=== PATIENT | female | born 1945 | race Caucasian/White ===

== ENCOUNTER 2016-12-19 19:08 | Emergency (ER) | payer OTHER, BC ==
[~2016-12-19] VITALS: Ht 154.9 cm; Wt 80.0 kg
[~2016-12-19 19:08] MED LIST: ESOM40GR PO; LISI-729 PO; LISI2.5T5 PO; TRAM-10 PO
[2016-12-19] MEDS ORDERED: SODIUM CHLORIDE 0.9% 1000ML 1,000 ML IV STA (19:29)
[2016-12-19 19:33] VITALS: O2SAT 97
[2016-12-19] MEDS ORDERED: ONDANSETRON 8 MG/54 ML D5W IV STA (19:34)
[2016-12-19] MEDS ORDERED: ACETAMINOPHEN 500 MG TAB PO STA (19:37)
[2016-12-19 19:38] VITALS: Ht 154.9 cm; Wt 80.0 kg
[2016-12-19 19:45] LABS: BASO % 0.1 %; BASO ABS # 0.01 K/uL (0-0.2); COMPLETE YES; EOS % 0.6 %; HEMATOCRIT 40.1 % (37-47); IG% 0.1 %; LYMPH % 7.4 %; LYMPH ABS # 0.64 K/uL (1.2-3.4); MEAN CELL VOLUME 85.7 fL (80-100); MEAN CORPUSCULAR HEMOGLOBIN 29.5 pg (25-34); MEAN CORPUSCULAR HGB CONC 34.4 g/dl (32-36); MEAN PLATELET VOLUME 9.7 fL (7.4-10.4); MONO % 11.4 %; NEUT % 80.4 %; PLATELET COUNT 225 K/uL (130-400); RED BLOOD COUNT 4.68 M/uL (4.2-5.4); WHITE BLOOD COUNT 8.61 K/uL (4.8-10.8)
--- NOTE | 2016-12-19 19:54 | DIAGNOSTIC IMAGING REPORT ---
SINGLE VIEW CHEST CLINICAL HISTORY: Generalized weakness. FINDINGS: An AP, portable, upright chest radiograph is compared to study dated 01/16/2012. The examination is degraded by portable technique, large body habitus, and apical positioning. The cardiomediastinal silhouette is unremarkable. Chronic interstitial thickening is unchanged, as is elevation of the right hemidiaphragm. There is no airspace consolidation typical for pneumonia, large pleural effusion, or pneumothorax. The skeletal structures are osteopenic. Degenerative change is noted throughout the thoracic spine. IMPRESSION: No active disease in the chest. Electronically signed by: Felipe Christie M.D. 12/19/2016 7:52 PM Dictated Date/Time: 12/19/2016 7:52 PM
[2016-12-19 19:56] LABS: INR 1.1 (0.9-1.1)
[2016-12-19 20:01] LABS: ALT/SGPT 24 U/L (12-78); BLOOD UREA NITROGEN 18 mg/dl (7-18); BUN/CREATININE RATIO 20.7 (10-20); CALCIUM 9.2 mg/dl (8.5-10.1); CARBON DIOXIDE 28 mmol/L (21-32); CHLORIDE 102 mmol/L (98-107); CREATININE 0.88 mg/dl (0.60-1.20); GLUCOSE 97 mg/dl (70-99); MAGNESIUM 1.9 mg/dl (1.8-2.4); POTASSIUM 3.7 mmol/L (3.5-5.1); SODIUM 139 mmol/L (136-145)
[2016-12-19 20:11] LABS: ALKALINE PHOSPHATASE 59 U/L (45-117); AST/SGOT 16 U/L (15-37)
--- NOTE | 2016-12-19 20:13 | DIAGNOSTIC IMAGING REPORT ---
CT SCAN OF THE BRAIN WITHOUT IV CONTRAST CLINICAL HISTORY: Generalized weakness. COMPARISON STUDY: CT of the brain dated 03/05/2010. TECHNIQUE: Unenhanced axial CT scan of the brain is performed from the vertex to the skull base. CT DOSE: 720.95 mGycm FINDINGS: Brain parenchyma: There are age-related involutional changes noting minimal subcortical and periventricular microangiopathic change. There is no hemorrhage, mass effect, or evidence of acute territorial ischemia by CT criteria. Lay-white matter is preserved. No extra-axial fluid collection is seen. Ventricles, sulci, cisterns: Prominent secondary to involutional change. Intracranial vasculature: There is atherosclerotic calcification of the cavernous carotid arteries. Calvarium: Unremarkable. Sinuses and mastoids: Mild mucosal thickening is noted within the ethmoid sinuses. The remaining visualized paranasal sinuses are clear. The mastoid air cells are well pneumatized. Orbits: The bony orbits are grossly intact. IMPRESSION: There is no hemorrhage, mass effect, or evidence of acute territorial ischemia by CT criteria. Electronically signed by: Felipe Christie M.D. 12/19/2016 8:12 PM Dictated Date/Time: 12/19/2016 8:10 PM
[2016-12-19] MEDS ORDERED: LISI-725 PO (20:38)
[2016-12-19] MEDS ORDERED: AMLO-114 PO (20:46)
[2016-12-19] MEDS ORDERED: ATOR-24 PO (20:47)
[2016-12-19] MEDS ORDERED: IBUP-1050 PO (20:48)
[2016-12-19] MEDS ORDERED: MELO7.5T5 PO (20:48)
[2016-12-19] MEDS ORDERED: AMOX875T PO (20:50)
[2016-12-19] MEDS ORDERED: AREDS 2 PO (20:53)
[2016-12-19 20:55] VITALS: TEMP 37.3
[2016-12-19] MEDS ORDERED: NXM/40 PO (20:55)
[2016-12-19 21:44] LABS: URINE APPEARANCE CLEAR (CLEAR); URINE BILIRUBIN NEG (NEG); URINE COLOR YELLOW; URINE EPITHELIAL CELL AUTO 0-5 /lpf (0-5); URINE NITRITE NEG (NEG); URINE PH 7.5 (4.5-7.5); URINE SPECIFIC GRAVITY 1.007 (1.000-1.030); UROBILINOGEN NEG (NEG)
--- NOTE | 2016-12-19 21:47 | EMERGENCY ROOM VISIT NOTE ---
History Report prepared by Ileana: Jodi Herzog Under the Supervision of: Dr. Jonathon Garg M.D. First contact with patient: 19:29 Chief Complaint: NAUSEA Stated Complaint: NAUSEA, SINUS DRAINAGE,COUGH History of Present Illness The patient is a 71 year old female who presents to the Emergency Room with complaints of persistent weakness starting earlier today. She has had a sinus infection with clear rhinorrhea for little over a week. She went to urgent care this morning and was put on Augmentin. She reports that she has gotten worse since then. She has had nausea and vomiting. Her throat is sore from throwing up. After throwing up she felt very weak and was unable to get up. She is still nauseated and has a headache, cough, and general body aches. Pt denies LOC, fevers, chills, diaphoresis, visual changes, neck pain, chest pain, breathing difficulties, abdominal pain, back pain, melena, hematochezia, urinary symptoms , numbness, lymphadenopathy, rash, or other complaints. Source of History: patient Onset: earlier today Position: other (global) Quality: other (weakness) Timing: other (persistent) Associated Symptoms: + cough, + headache, + nausea, + sorethroat, + vomiting Note: Pt reports body aches. Review of Systems See HPI for pertinent positives and negatives. A total of ten systems were reviewed and were otherwise negative. Past Medical & Surgical Medical Problems: (1) Arthritis (2) Basal cell carcinoma of chest (3) Bronchitis (4) Heart disease (5) Hypertension Family History Diabetes mellitus Heart disease Hypertension Social History Smoking Status: Never Smoker Alcohol Use: none Marital Status: Housing Status: lives with family Occupation Status: retired Current/Historical Medications Scheduled Amlodipine (Norvasc), 20 MG PO DAILY Amoxicillin & Pot Clavulanate (Augmentin 875-125 mg), 1 TAB PO DAILY Atorvastatin (Lipitor), Unknown Dose PO QPM Esomeprazole Magnesium (Nexium), 40 MG PO QAM Ibuprofen (Advil), 200 MG PO DAILY Levofloxacin (Levaquin), 500 MG PO DAILY Lisinopril (Zestril), 20 MG PO DAILY Meloxicam (Mobic), 7.5 MG PO DAILY [Areds 2], 1 TAB PO DAILY Allergies Coded Allergies: Erythromycin (Verified Allergy, Mild, RASH, 12/19/16) Morphine (Verified Adverse Reaction, Mild, SEVERE NAUSEA AND VOMITING, ) Prednisone (Verified Adverse Reaction, Unknown, "STEROIDS" = "EXTREME HEADACHE AND HEART PALPITATIONS", 12/19/16) Physical Exam Vital Signs Date Time Temp Pulse Resp B/P Pulse Ox O2 Delivery O2 Flow Rate FiO2 12/19/16 22:10 82 16 135/72 94 Room Air 12/19/16 22:08 82 14 135/72 94 Room Air 93 122/88 97 140/86 12/19/16 20:55 37.3 86 18 132/78 95 Room Air 12/19/16 19:35 96 12/19/16 19:33 97 Room Air 12/19/16 19:17 37.8 105 20 145/84 93 Room Air Physical Exam GENERAL: Awake, alert, mildly ill appearing, no distress HEAD: Normocephalic, atraumatic. No edema. EYES: Normal conjunctiva. Sclera non-icteric. NOSE: Mild congestion. OROPHARYNX: Lips, tongue, and mucosa unremarkable. No erythema or exudate. NECK: Supple. No nuchal rigidity. FROM. No adenopathy. Negative jolt accentuation test. RESPIRATORY: CTA bilaterally. No wheezes rales or rhonchi. CARDIAC: Borderline tachycardic rate, normal rhythm. ABDOMEN: Soft, non distended. No tenderness to palpation. NEURO: Normal sensorium. SKIN: No rash or jaundice noted Medical Decision & Procedures ER Provider Diagnostic Interpretation: X ray results as stated below per my interpretation and radiologist interpretation. Other radiology results as stated below per my review and radiologist interpretation SINGLE VIEW CHEST CLINICAL HISTORY: Generalized weakness. FINDINGS: An AP, portable, upright chest radiograph is compared to study dated 01/16/2012. The examination is degraded by portable technique, large body habitus, and apical positioning. The cardiomediastinal silhouette is unremarkable. Chronic interstitial thickening is unchanged, as is elevation of the right hemidiaphragm. There is no airspace consolidation typical for pneumonia, large pleural effusion, or pneumothorax. The skeletal structures are osteopenic. Degenerative change is noted throughout the thoracic spine. IMPRESSION: No active disease in the chest. Electronically signed by: Felipe Christie M.D. 12/19/2016 7:52 PM Dictated Date/Time: 12/19/2016 7:[address] SCAN OF THE BRAIN WITHOUT IV CONTRAST CLINICAL HISTORY: Generalized weakness. COMPARISON STUDY: CT of the brain dated 03/05/2010. TECHNIQUE: Unenhanced axial CT scan of the brain is performed from the vertex to the skull base. CT DOSE: 720.95 mGycm FINDINGS: Brain parenchyma: There are age-related involutional changes noting minimal subcortical and periventricular microangiopathic change. There is no hemorrhage, mass effect, or evidence of acute territorial ischemia by CT criteria. Lay-white matter is preserved. No extra-axial fluid collection is seen. Ventricles, sulci, cisterns: Prominent secondary to involutional change. Intracranial vasculature: There is atherosclerotic calcification of the cavernous carotid arteries. Calvarium: Unremarkable. Sinuses and mastoids: Mild mucosal thickening is noted within the ethmoid sinuses. The remaining visualized paranasal sinuses are clear. The mastoid air cells are well pneumatized. Orbits: The bony orbits are grossly intact. IMPRESSION: There is no hemorrhage, mass effect, or evidence of acute territorial ischemia by CT criteria. Electronically signed by: Felipe Christie M.D. 12/19/2016 8:12 PM Dictated Date/Time: 12/19/2016 8:10 PM Laboratory Results 12/19/16 19:33 Red Blood Count 4.68, Mean Corpuscular Volume 85.7, Mean Corpuscular Hemoglobin 29.5, Mean Corpuscular Hemoglobin Concent 34.4, Mean Platelet Volume 9.7, Neutrophils (%) (Auto) 80.4, Lymphocytes (%) (Auto) 7.4, Monocytes (%) (Auto) 11.4, Eosinophils (%) (Auto) 0.6, Basophils (%) (Auto) 0.1, Neutrophils # (Auto ) 6.92, Lymphocytes # (Auto) 0.64, Monocytes # (Auto) 0.98, Eosinophils # (Auto ) 0.05, Basophils # (Auto) 0.01 12/19/16 19:33 Test 12/19/16 19:33 12/19/16 20:15 12/19/16 20:28 12/19/16 21:30 White Blood Count 8.61 K/uL (4.8-10.8) Red Blood Count 4.68 M/uL (4.2-5.4) Hemoglobin 13.8 g/dL (12.0-16.0) Hematocrit 40.1 % (37-47) Mean Corpuscular Volume 85.7 fL (80-100) Mean Corpuscular Hemoglobin 29.5 pg (25-34) Mean Corpuscular Hemoglobin Concent 34.4 g/dl (32-36) Platelet Count 225 K/uL (130-400) Mean Platelet Volume 9.7 fL (7.4-10.4) Neutrophils (%) (Auto) 80.4 % Lymphocytes (%) (Auto) 7.4 % Monocytes (%) (Auto) 11.4 % Eosinophils (%) (Auto) 0.6 % Basophils (%) (Auto) 0.1 % Neutrophils # (Auto) 6.92 K/uL (1.4-6.5) Lymphocytes # (Auto) 0.64 K/uL (1.2-3.4) Monocytes # (Auto) 0.98 K/uL (0.11-0.59) Eosinophils # (Auto) 0.05 K/uL (0-0.5) Basophils # (Auto) 0.01 K/uL (0-0.2) RDW Standard Deviation 43.6 fL (36.4-46.3) RDW Coefficient of Variation 13.9 % (11.5-14.5) Immature Granulocyte % (Auto) 0.1 % Immature Granulocyte # (Auto) 0.01 K/uL (0.00-0.02) Prothrombin Time 12.0 SECONDS (9.0-12.0) Prothromb Time International Ratio 1.1 (0.9-1.1) Activated Partial Thromboplast Time 26.9 SECONDS (21.0-31.0) Partial Thromboplastin Ratio 1.0 Anion Gap 9.0 mmol/L (3-11) Est Creatinine Clear Calc Drug Dose 57.0 ml/min Estimated GFR () 77.2 Estimated GFR (Non- 66.6 BUN/Creatinine Ratio 20.7 (10-20) Calcium Level 9.2 mg/dl (8.5-10.1) Magnesium Level 1.9 mg/dl (1.8-2.4) Total Bilirubin 0.3 mg/dl (0.2-1) Direct Bilirubin < 0.1 mg/dl (0-0.2) Aspartate Amino Transf (AST/SGOT) 16 U/L (15-37) Alanine Aminotransferase (ALT/SGPT) 24 U/L (12-78) Alkaline Phosphatase 59 U/L (45-117) Troponin I < 0.015 ng/ml (0-0.045) Total Protein 8.0 gm/dl (6.4-8.2) Albumin 3.8 gm/dl (3.4-5.0) Lipase 238 U/L (73-393) Thyroid Stimulating Hormone (TSH) 2.550 uIu/ml (0.300-4.500) Influenza Type A Antigen Neg for Influ A (NEG) Influenza Type B Antigen Neg for Influ B (NEG) Bedside Lactic Acid Venous 1.10 mmol/L (0.90-1.70) Urine Color YELLOW Urine Appearance CLEAR (CLEAR) Urine pH 7.5 (4.5-7.5) Urine Specific [place] 1.007 (1.000-1.030) Urine Protein NEG (NEG) Urine Glucose (UA) NEG (NEG) Urine Ketones NEG (NEG) Urine Occult Blood NEG (NEG) Urine Nitrite NEG (NEG) Urine Bilirubin NEG (NEG) Urine Urobilinogen NEG (NEG) Urine Leukocyte Esterase TRACE (NEG) Urine WBC (Auto) 0 /hpf (0-5) Urine RBC (Auto) 0-4 /hpf (0-4) Urine Hyaline Casts (Auto) 0 /lpf (0-5) Urine Epithelial Cells (Auto) 0-5 /lpf (0-5) Urine Bacteria (Auto) NEG (NEG) Laboratory results reviewed by me Medications Administered Medications (Trade) Dose Ordered Sig/Jayce Route Start Time Stop Time Status Last Admin Dose Admin Sodium Chloride (Nss 1000ml) 1,000 ml @ 999 mls/hr Q1H1M STAT IV 12/19/16 19:29 12/19/16 20:29 DC 12/19/16 19:29 999 MLS/HR Ondansetron HCl (Zofran 8mg Iv) 8 mg NOW STAT IV 12/19/16 19:34 12/19/16 19:35 DC 12/19/16 19:46 8 MG Acetaminophen (Tylenol Tab) 1,000 mg NOW STAT PO 12/19/16 19:37 12/19/16 19:38 DC 12/19/16 19:37 1,000 MG ECG Indication: weakness Rate (beats per minute): 98 Rhythm: normal sinus Findings: nonspecific-ST abn, no acute ischemic change, no ectopy ED Course 1928: NSS 1000 ml @ 999 mls/hr IV. 1932: The patient was evaluated in room B9. A complete history and physical exam was performed. 1933: Ondansetron HCl 8 mg IV. 1936: Acetaminophen 1000 mg PO. Medical Decision Triage Nursing notes reviewed. The patient's presentation and history were concerning for flulike symptoms. Etiologies such as viral syndrome, otitis, pharyngitis, pneumonia, urinary tract infection, sepsis, bacteremia, meningitis, as well as others were entertained. The patient was evaluated and she is mildly ill-appearing and uncomfortable. She had no significant headache or meningeal findings. She noted moderate nasal congestion. She noted that her symptoms worsened very shortly after taking the Augmentin. She notes having GI distress with erythromycin in the past that was similar. The patient underwent a workup. Her CBC, coags, cardiac markers were unremarkable. Chemistry panel did reveal some mild dehydration. The patient was hydrated. She was given Tylenol and she had a borderline fever. CT imaging didn't reveal mild sinus disease but no intracranial findings otherwise. The patient had a negative chest x-ray. Flu testing was performed as well as urinalysis and these were negative. I suspect the patient has a flulike illness but it has been present for about a week. She does have some sinusitis on imaging. Given her intolerance to erythromycin and Augmentin the patient would Be treated with Levaquin. I will place her on Levaquin for 5 days and have her follow-up closely with her outpatient physician. The patient was given the first dose in the emergency department. She will also be given a home pack of Zofran. She will not use this at the same time as the Levaquin. She does not have a prolonged QT and ECG. The patient had negative orthostatic testing. She was able to tolerate crackers and brandi david without difficulty the patient was offered treatment in the hospital as well as at home. She prefers to go home. If she worsens in anyway she agrees to come back. I gave my usual and customary discussion regarding this issue. By the evaluation outlined above other emergent etiologies such as those listed in the differential, as well as others, were deemed relatively unlikely. The patient and family were informed about the findings as listed above. All questions were answered and they were very pleased with the treatment. Return instructions were outlined and the patient was discharged in stable condition. The patient was referred to her PCP for follow-up tomorrow for a recheck of the current condition. The chart was completed utilizing [employer] Speech voice recognition software. Grammatical errors, random word insertions, pronoun errors, and incomplete sentences are an occasional consequence of this system due to software limitations, ambient noise, and hardware issues. Any formal questions or concerns about the content, text, or information contained within the body of this dictation should be directly addressed to the physician for clarification. Impression Primary Impression: Vomiting Additional Impressions: Near syncope Sinusitis Flu-like symptoms Scribe Attestation The scribe's documentation has been prepared under my direction and personally reviewed by me in its entirety. I confirm that the note above accurately reflects all work, treatment, procedures, and medical decision making performed by me. Departure Information Dispostion Home / Self-Care Prescriptions Levofloxacin (Levaquin) 500 Mg Tab 500 MG PO DAILY for 4 Days, #4 TAB Prov: Jonathon Garg MD 12/19/16 Referrals Brook Boucher DO (PCP) Patient Instructions [facility] Additional Instructions Levafloxacin(Levaquin) 500mg: Take one pill daily for 4 additional days for your infection. All antibiotics can cause diarrhea. If this occurs and you feel worse or it does not resolve in 1-2 days follow up with your doctor or return to the Emergency Department as this could be signs of serious underlying problems. Any medication can cause an allergic reaction, stop the pills immediately and return to the ER for rash, hives, breathing difficulties, or swelling. Acetaminophen(Tylenol) may be used for fever or pain. Use 1000mg every six hours as needed. Avoid using more than 4000mg in a 24 hour period. AND/OR Ibuprofen(Motrin, Advil) may be used for fever or pain. Use 600mg every six hours as needed. Take with food. Avoid using more than 2400mg in a 24 hour period. Do not use 2400mg per day for more than three consecutive days without physician direction. Prolonged inappropriate use can lead to stomach upset or ulcers. Controlling your fever with Tylenol and Ibuprofen as above will make you feel better. Rest and drink plenty of fluids. Avoid strenuous activity until your symptoms resolve and your breathing returns to normal. Return to the ER for chest pain, difficulty breathing, persistent fevers, vomiting, worsening of your condition, or as needed. Follow up with your primary physician in 1-2 days for a recheck of the current condition. Problem Qualifiers
[2016-12-19 21:49] LABS: MANUAL MICROSCOPIC REQUIRED? NO; REVIEW REQ? NO
[2016-12-19] MEDS ORDERED: LEVOFLOXACIN 250 MG TAB PO STA (22:50)
[2016-12-19] MEDS ORDERED: LEVO-366 PO (22:53)
[2016-12-19] MEDS ORDERED: ONDANSETRON HOME PACK 4MG OD TAB PO ONE (23:00)
[2016-12-19 23:15] VITALS: BP 130/79; PULSE 86; O2SAT 95
== END 2016-12-19 23:16 | disposition home or self-care (01) ==
LOC: C.EDB 19:09
DX: R11.10 Vomiting, unspecified (principal); R55 Syncope and collapse; J32.9 Chronic sinusitis, unspecified; R68.89 Other general symptoms and signs; M19.90 Unspecified osteoarthritis, unspecified site; Z85.828 Personal history of other malignant neoplasm of skin; I10 Essential (primary) hypertension; I51.9 Heart disease, unspecified; Z83.3 Family history of diabetes mellitus; Z82.49 Family history of ischemic heart disease and other diseases of the circulatory system; Z79.899 Other long term (current) drug therapy

== ENCOUNTER 2024-01-26 09:59 | Inpatient (IN) ==
[2024-01-26 11:07] LABS: Basophils # (auto) 0.02 K/uL (0.00-0.20); Basophils % (auto) 0.3 %; Hematocrit (blood only) 37.2 % (37.0-47.0); Hemoglobin 12.9 g/dl (12.0-16.0); Immature Granulocytes # (auto) 0.02 K/uL (0.01-0.20); Immature Granulocytes % (auto) 0.3 %; Lymphocytes % (auto) 19.8 %; Mean Corpuscular Hemoglobin 28.8 pg (25.0-34.0); Mean Corpuscular Hgb Conc 34.7 g/dL (32.0-36.0); Monocytes # (auto) 0.31 K/uL (0.11-0.59); Monocytes % (auto) 4.7 %; Neutrophils # (auto) 4.93 K/uL (1.40-6.50); Neutrophils % (auto) 74.9 %; Platelet Count 330 K/uL (130-400); RDW Coefficient of Variation 12.5 % (11.5-14.5); RDW Standard Deviation 38.2 fL (36.4-46.3); Red Blood Count 4.48 M/uL (4.20-5.40); White Blood Count 6.58 K/ul (4.8-10.8)
--- NOTE | 2024-01-26 11:11 | Emergency Department Note ---
Impression & Plan Back pain, Bulging lumbar disc, Spondylolisthesis at L3-L4 level, Acute hyponatremia ED Provider Note NAME: GEOVANI RENNER AGE: 78 SEX: F : 1945 ARRIVES VIA: Ambulance INFORMANT: Patient, ED PROVIDER(S): Arthur Cheng DO CHIEF COMPLAINT: Back pain HPI: The patient is a 78-year-old female who presented to the emergency department for an evaluation of back pain. The patient started having back pain over the course the last 2 to 3 days. The patient was seen in our facility yesterday with similar complaints. She was treated with pain medication. She had a CT obtained that did show some degree of degenerative disc disease and possible disc bulging. She was feeling better and she was able to be discharged to home. She returns today by ambulance because of worsening symptoms. She was treated by the prehospital personnel prior to arrival. She was treated with Toradol and Zofran droperidol Tylenol fentanyl and normal saline. The patient did have some improvement of her symptoms. She continued to have some nausea and vomiting. ROS: See above HPI for pertinent positives & negatives. A total of 10 systems reviewed and were otherwise negative. PAST MEDICAL HISTORY: See Below PAST SURGICAL HISTORY: See Below FAMILY HISTORY: See Below SOCIAL HISTORY: See Below HOME MEDICATIONS: See Below ALLERGIES: See Below VITALS: See Below PHYSICAL EXAMINATION: GENERAL: The patient is awake and alert. She is somewhat anxious appearing. EYES: The conjunctivae are clear. The pupils are round and reactive. EARS, NOSE, MOUTH AND THROAT: The nose is without any evidence of any deformity. NECK: The neck is nontender and supple. RESPIRATORY: Normal respiratory effort is noted there is no evidence of wheezing rhonchi or rales CARDIOVASCULAR: Regular rate and rhythm noted there no murmurs rubs or gallops normal S1 normal S2. GASTROINTESTINAL: The abdomen is soft. Abdomen is nontender. BACK: Midline lumbar tenderness was noted to palpation. There is no step-off. Range of motion appears intact but painful. MUSCULOSKELETAL/EXTREMITIES: There is no evidence of gross deformity full range of motion is noted in the hips and shoulders. SKIN: There is no obvious evidence of any rash. There are no petechiae, pallor or cyanosis noted. NEUROLOGIC: Patient is awake alert and oriented x3 strength is symmetric patellar reflexes are 2+ bilaterally MEDICAL DECISION MAKING: The patient is a 78-year-old female who presented to the emergency department by ambulance for an evaluation of pain. The patient was seen in our facility yesterday for similar complaints. She was treated for low back pain and ultimately was feeling much better. She was able to be discharged home at that time. She returns today with worsening and ongoing symptoms. I discussed the patient's laboratory and radiographic studies with her. I did review the patient's workup from yesterday. The patient started having some right-sided abdominal pain so CT of the abdomen and pelvis was obtained to ensure there is no intra-abdominal process causing her back pain today. The patient was treated with pain medication in the emergency department. I discussed her condition with the emergency department case hardener. Transfer to inpatient rehab was discussed but at this time the patient does not appear to be a very good inpatient rehab candidate. For this reason I [facility] have agreed to evaluate the patient in the emergency department for further management and disposition. Triage Nursing notes reviewed. Prior medical records reviewed Vital Signs: reviewed and remarkable for elevated blood pressure. Differential diagnosis: Musculoskeletal, disc herniation, fracture, metastatic disease, cord compression, discitis, sciatica, cauda equina, infection, aortic disease, renal colic, gastrointestinal, as well as other pathologies. ER treatment provided: See below Diagnostics interpreted by me: ECG: EKG was obtained in the emergency department. My interpretation is normal sinus rhythm at 68 bpm. There was no ectopy. Nonspecific T wave abnormalities were noted anteriorly. This was compared to a tracing from April 01, 2022. No changes were noted. Cardiac Monitoring: An order was placed for continuous cardiac monitoring. The monitor shows a rate of 68 bpm with sinus rhythm. Laboratory studies: As stated above and show below. Imaging studies: See below. Radiographic imaging was reviewed by myself Consultation(s): I discussed this case with Nahed who [facility] Past Med/Surg History Medical History GERD (gastroesophageal reflux disease) Hypertension Surgical History H/O neck surgery Social History Smoking Status: Never smoker Preferred Language: Yi Feels Safe at Home: Yes Allergies Allergies Allergy/AdvReac Type Severity Reaction Status Date / Time erythromycin base Allergy Intermediate RASH Verified 04/01/22 18:32 oxycodone [From Percocet] Allergy Intermediate INCREASES Verified 04/01/22 18:32 B/P, HIVES morphine AdvReac Severe SEVERE Verified 04/01/22 18:32 NAUSEA AND VOMITING prednisone AdvReac Severe "STEROIDS" Verified 04/01/22 18:32 = "EXTREME HEADACHE AND HEART PALPITATIONS" OPOIDS Allergy Intermediate INCREASES Uncoded 04/01/22 18:32 B/P, HIVES Home Meds Home Medications Medication Instructions Recorded Confirmed aspirin 81 mg tablet,delayed 81 mg PO QAM 04/01/22 01/26/24 release brimonidine 0.15 % eye drops 1 drp OPB BID 04/01/22 01/26/24 calcium citrate 315 mg 1 tab PO QAM 04/01/22 01/26/24 calcium-vitamin D3 6.25 mcg (250 unit) tablet (Citracal + Vitamin D Maximum) dorzolamide 22.3 mg-timolol 6.8 1 drp OPB BID 04/01/22 01/26/24 mg/mL eye drops esomeprazole magnesium 20 mg 20 mg PO QAM 04/01/22 01/26/24 capsule,delayed release (Nexium) krill oil 500 mg capsule 500 mg PO BID 04/01/22 01/26/24 lisinopril 20 mg tablet 20 mg PO QPM 04/01/22 01/26/24 magnesium chloride 71.5 mg 71.5 mg PO QPM 04/01/22 01/26/24 (magnesium chloride) tablet,delayed release (Slow-Mag) betamethasone dipropionate 0.05 % 1 applic topical BID 01/25/24 01/26/24 lotion meloxicam 15 mg tablet 15 mg PO QAM 01/25/24 01/26/24 Previous Rx's Medication Instructions Recorded lidocaine 5 % topical patch 1 patch topical DAILY PRN pain #15 01/25/24 ea Results & Data (ED) Vital Signs Vital Signs - 24 hr 01/26/24 09:50 01/26/24 10:12 01/26/24 10:20 Temperature 37.1 C Temperature Source Oral Pulse Rate 68 68 74 Pulse Rhythm Regular Pulse Strength Normal Respiratory Rate 18 14 Respiratory Effort / Characteristics Non-Labored Respiratory Depth Normal Respiratory Pattern Regular Blood Pressure 197/84 H Blood Pressure Mean 121 Blood Pressure Position Sitting Pulse Oximetry 96 95 Oxygen Delivery Method Room Air Room Air Sepsis Recent Fever Within 48 Hours No Sepsis New/Unexplained Change in Mental Status No Sepsis Action Taken by Nursing No Action Required 01/26/24 10:30 01/26/24 10:30 01/26/24 10:48 Temperature Temperature Source Pulse Rate 81 79 Pulse Rhythm Regular Pulse Strength Respiratory Rate 20 18 Respiratory Effort / Characteristics Respiratory Depth Respiratory Pattern Blood Pressure 182/90 H Blood Pressure Mean 133 Blood Pressure Position Pulse Oximetry 95 97 Oxygen Delivery Method Room Air Room Air Sepsis Recent Fever Within 48 Hours Sepsis New/Unexplained Change in Mental Status Sepsis Action Taken by Nursing 01/26/24 11:00 01/26/24 11:00 01/26/24 11:30 Temperature Temperature Source Pulse Rate 75 78 Pulse Rhythm Pulse Strength Respiratory Rate 19 18 Respiratory Effort / Characteristics Respiratory Depth Respiratory Pattern Blood Pressure 177/96 H Blood Pressure Mean 138 Blood Pressure Position Pulse Oximetry 96 97 Oxygen Delivery Method Room Air Room Air Sepsis Recent Fever Within 48 Hours Sepsis New/Unexplained Change in Mental Status Sepsis Action Taken by Nursing 01/26/24 11:30 01/26/24 12:01 01/26/24 12:02 Temperature Temperature Source Pulse Rate 74 67 Pulse Rhythm Pulse Strength Respiratory Rate 19 17 Respiratory Effort / Characteristics Respiratory Depth Respiratory Pattern Blood Pressure 186/106 H Blood Pressure Mean 149 Blood Pressure Position Pulse Oximetry 98 Oxygen Delivery Method Room Air Sepsis Recent Fever Within 48 Hours Sepsis New/Unexplained Change in Mental Status Sepsis Action Taken by Nursing 01/26/24 12:02 01/26/24 12:30 01/26/24 12:30 Temperature Temperature Source Pulse Rate 68 Pulse Rhythm Pulse Strength Respiratory Rate 17 Respiratory Effort / Characteristics Respiratory Depth Respiratory Pattern Blood Pressure 138/74 158/86 H Blood Pressure Mean 100 128 Blood Pressure Position Pulse Oximetry 99 Oxygen Delivery Method Room Air Sepsis Recent Fever Within 48 Hours Sepsis New/Unexplained Change in Mental Status Sepsis Action Taken by Retirement Medications Current Medication List: was personally reviewed by me Laboratory Data Attestation: I reviewed the patient's lab results. 01/26/24 10:05 01/26/24 10:05 Lab Results 01/26/24 Range/Units 10:05 WBC 6.58 (4.8-10.8) K/ul RBC 4.48 (4.20-5.40) M/uL Hgb 12.9 (12.0-16.0) g/dl Hct 37.2 (37.0-47.0) % MCV 83.0 (80.0-100.0) fL MCH 28.8 (25.0-34.0) pg MCHC 34.7 (32.0-36.0) g/dL RDW Std Deviation 38.2 (36.4-46.3) fL RDW Coeff of Angela 12.5 (11.5-14.5) % Plt Count 330 (130-400) K/uL MPV 10.0 (9.4-12.4) fL Immature Gran % (Auto) 0.3 % Neut % (Auto) 74.9 % Lymph % (Auto) 19.8 % [place] % (Auto) 4.7 % Eos % (Auto) 0.0 % Baso % (Auto) 0.3 % Neut # (Auto) 4.93 (1.40-6.50) K/uL Lymph # (Auto) 1.30 (1.20-3.40) K/uL [place] # (Auto) 0.31 (0.11-0.59) K/uL Eos # (Auto) 0.00 (0.00-0.50) K/uL Baso # (Auto) 0.02 (0.00-0.20) K/uL Immature Gran # (Auto) 0.02 (0.01-0.20) K/uL Sodium 126 L (136-145) mmol/L Potassium 3.8 (3.5-5.1) mmol/L Chloride 94 L (98-107) mmol/L Carbon Dioxide 23 (21-32) mmol/L Anion Gap 9 (3-11) BUN 9 (6-23) mg/dl Creatinine 0.67 (0.6-1.2) mg/dl Est Cr Clr Drug Dosing 60.7 ml/min Est GFR ( Amer) 98.3 ml/min Est GFR (Non-Af Amer) 84.8 ml/min BUN/Creatinine Ratio 13.4 (10-20) Glucose 131 H (70-99(Fasting)) mg/dl Calcium 9.2 (8.6-10.3) mg/dl Total Bilirubin 0.4 (0.2-1.0) mg/dl AST 18 (13-39) U/L ALT 14 (7-52) U/L Alkaline Phosphatase 51 (34-104) U/L Troponin I High Sens 8.3 (0-14) pg/ml Total Protein 7.5 (6.0-8.3) gm/dl Albumin 4.1 (3.4-5.0) gm/dl Globulin 3.4 (2.5-4.0) gm/dl Albumin/Globulin Ratio 1.2 (0.9-2) Lipase 15 (11-82) U/L Administered Medications Fentanyl Citrate (Fentanyl Citrate Pf 100 Mcg/2 Ml Vial) 50 mcg IV Q15M PRN PRN Reason: Pain Stop: 02/09/24 10:47 Last Admin: 01/26/24 11:26 Dose: 50 mcg Documented By: JACKI Discontinued Medications Sodium Chloride (Nss) 500 mls @ 999 mls/hr IV .Q31M STA Stop: 01/26/24 11:18 Last Infusion: 01/26/24 12:13 Dose: Infused Documented By: Admin: 01/26/24 11:26 Dose: 999 mls/hr Documented By: JACKI Ondansetron HCl (Ondansetron Inj 2 Mg/Ml 2 Ml Vial) 4 mg IV NOW STA Stop: 01/26/24 10:49 Last Admin: 01/26/24 11:26 Dose: 4 mg Documented By: JACKI Imaging Data Attestation: I personally reviewed and interpreted this imaging study as follows: My Impression: CT of the abdomen and pelvis was obtained in the emergency department. My interpretation is no free air or signs of bowel obstruction, final report below. Radiologist's Impression: Abdomen/Pelvis CT 01/26/24 11:[address] WITHOUT CONTRAST CT DOSE: 1085.9 mGy.cm HISTORY: Acute right flank pain right flank pain, seen yesterday had CT LS TECHNIQUE: Multiaxial CT images of the abdomen and pelvis were performed without contrast. A dose lowering technique was utilized adhering to the principles of ALARA. COMPARISON STUDY: CT lumbar spine 01/25/2024, CT abdomen and pelvis 04/01/2022 FINDINGS: Mild subsegmental bibasilar atelectasis. There is no pneumatosis or pneumoperitoneum. Coronary artery calcifications. The unenhanced spleen, pancreas, adrenal glands, gallbladder and liver appear unremarkable. No renal or ureteral calculi or hydronephrosis. Mild bilateral pelviectasis is likely physiologic. Unremarkable urinary bladder, uterus and adnexa. Atherosclerosis of the aorta without aneurysm. There is no lymphadenopathy identified. Small hiatal hernia. No bowel obstruction or bowel wall thickening. Colonic diverticulosis. Mild to moderate fecal retention. Appendectomy. No ascites or mesenteric inflammation. Unremarkable soft tissues. Degenerative changes of the spine, pelvis and hips. There is multilevel central canal and neural foraminal narrowing. There is severe intervertebral disc space narrowing at the T12-L1 interspace. Transitional lumbosacral anatomy. IMPRESSION: 1. No acute intra-abdominal or intrapelvic abnormality. 2. No urolith or obstructive uropathy. 3. Colonic diverticulosis. 4. Additional findings as above. ACT 112: Negative or not required by law. The above report was generated using voice recognition software. It may contain grammatical, syntax or spelling errors. Electronically signed by: Chaz Bello M.D. 01/26/2024 12:35 PM Discharge Plan Visit Data Stated Complaint: LOWER BACKK PAIN ED Provider: Arthur Cheng Discharge Problem: Back pain, Bulging lumbar disc, Spondylolisthesis at L3-L4 level, Acute hyponatremia Patient Disposition: Being Evaluated by Hospitalist Prescriptions Prescriptions: No Action lisinopril 20 mg tablet 20 mg PO QPM aspirin 81 mg Tablet,Delayed Release (Dr/Ec) 81 mg PO QAM dorzolamide-timolol 22.3-6.8 mg/mL drops 1 drp OPB BID brimonidine 0.15 % drops 1 drp OPB BID esomeprazole magnesium [Nexium] 20 mg Capsule,Delayed Release(Dr/Ec) 20 mg PO QAM calcium citrate-vitamin D3 [Citracal + D Maximum] 315 mg-6.25 mcg (250 unit) Tablet 1 tab PO QAM Slow-Mag 71.5 mg Tablet,Delayed Release (Dr/Ec) 71.5 mg PO QPM krill oil 500 mg Capsule 500 mg PO BID meloxicam 15 mg tablet 15 mg PO QAM betamethasone dipropionate 0.05 % lotion 1 applic TOPICAL BID lidocaine 5 % adhesive patch,medicated 1 patch TOP DAILY PRN (Reason: pain) Qty: 15 0RF Rx Instructions: leave on most painful area for 12 hrs Referrals Referrals: Brook Boucher, [Primary Care Provider] - Discharge Problem: Back pain Qualifiers: Back pain location: low back pain Chronicity: acute Back pain laterality: u nspecified Sciatica presence: unspecified whether sciatica present Qualified Code(s): M54.50 - Low back pain, unspecified
[2024-01-26 11:25] LABS: Albumin Globulin Ratio 1.2 (0.9-2); Albumin Level 4.1 gm/dl (3.4-5.0); BUN Creatinine Ratio 13.4 (10-20); Bilirubin,Total 0.4 mg/dl (0.2-1.0); Calcium 9.2 mg/dl (8.6-10.3); Creatinine Clr Calc Pharmacy 60.7 ml/min; Est GFR (African American) 98.3 ml/min; Est GFR (Non-African American) 84.8 ml/min; Globulin 3.4 gm/dl (2.5-4.0); Potassium 3.8 mmol/L (3.5-5.1); Total Protein 7.5 gm/dl (6.0-8.3)
[2024-01-26] MEDS: ONDANSETRON INJ 2 MG/ML 2 ML VIAL IV STA (11:26)
[2024-01-26] MEDS: SODIUM CHLORIDE 0.9% 500 ML IV STA (11:26)
[2024-01-26] MEDS: fentaNYL citrate PF 100 MCG/2 ML VIAL IV PRN (11:26)
[2024-01-26 11:31] LABS: Troponin I High Sensitivity 8.3 pg/ml (0-14)
--- NOTE | 2024-01-26 12:37 | CT Scan Report ---
ABDOMEN AND PELVIS CT WITHOUT CONTRAST CT DOSE: 1085.9 mGy.cm HISTORY: Acute right flank pain right flank pain, seen yesterday had CT LS TECHNIQUE: Multiaxial CT images of the abdomen and pelvis were performed without contrast. A dose lo wering technique was utilized adhering to the principles of ALARA. COMPARISON STUDY: CT lumbar spine 01/25/2024, CT abdomen and pelvis 04/01/2022 FINDINGS: Mild subsegmental bibasilar atelectasis. There is no pneumatosis or pneumoperitoneum. Coron soni artery calcifications. The unenhanced spleen, pancreas, adrenal glands, gallbladder and liver alena ear unremarkable. No renal or ureteral calculi or hydronephrosis. Mild bilateral pelviectasis is like ly physiologic. Unremarkable urinary bladder, uterus and adnexa. Atherosclerosis of the aorta without aneurysm. There is no lymphadenopathy identified. Small hiatal hernia. No bowel obstruction or bowel wall thickening. Colonic diverticulosis. Mild to m oderate fecal retention. Appendectomy. No ascites or mesenteric inflammation. Unremarkable soft tissu es. Degenerative changes of the spine, pelvis and hips. There is multilevel central canal and neural foraminal narrowing. There is severe intervertebral disc space narrowing at the T12-L1 interspace. Tr ansitional lumbosacral anatomy. IMPRESSION: 1. No acute intra-abdominal or intrapelvic abnormality. 2. No urolith or obstructive uropathy. 3. Colonic diverticulosis. 4. Additional findings as above. ACT 112: Negative or not required by law. The above report was generated using voice recognition software. It may contain grammatical, syntax o r spelling errors. Electronically signed by: Chaz Bello M.D. 01/26/2024 12:35 PM
--- NOTE | 2024-01-26 13:16 | Electrocardiogram Report ---
Test Reason : Blood Pressure : / mmHG Vent. Rate : 068 BPM Atrial Rate : 068 BPM P-R Int : 174 ms QRS Dur : 080 ms QT Int : 412 ms P-R-T Axes : 070 069 081 degrees QTc Int : 438 ms Normal sinus rhythm Normal ECG When compared with ECG of 01-APR-2022 18:11, No significant change was found Confirmed by Inderjit Bladeras ([id number]) on 01/26/2024 1:16:31 PM Referred By: Brook Boucher Confirmed By:Inderjit Balderas
--- NOTE | 2024-01-26 13:43 | History & Physical Report ---
Date of Service January 26, 2024 Assessment & Plan (1) Acute exacerbation of chronic low back pain: (2) Spondylolisthesis at L3-L4 level: (3) Bulging lumbar disc: (4) Lumbar radiculopathy: (5) Chronic hyponatremia: (6) Hypertension: (7) CHANEL on CPAP: (8) Hx of deep venous thrombosis: Plan This is a 78-year-old female who has a significant past medical history of HTN, GERD, CHANEL, solitary rectal ulcer syndrome, cervical disc disorder with myopathy, glaucoma, history of DVT/PE and obesity who presents to ED secondary to acute on chronic back pain. Acute on Chronic Back Pain --CT Lumbar spine reviewed from 01/24 showed Severe canal narrowing at L3-L4 due to disc bulge, spondylolisthesis and advanced facet hypertrophy noted. Also moderate to severe canal narrowing at L2-L3. 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 Boucher Pt was seen and examined in collaboration with Dr. Luis, please see addendum A total of 76 minutes was spent coordinating, documenting, and providing care for this patient excluding time spent in the performance of separately billed services. This included personally viewing all current laboratories and imaging studies, medication reconciliation, outpatient chart review, and discussion with specialists. History of Present Illness Chief Complaint: Acute on Chronic Back pain. Primary Care Provider: Brook Boucher, DO This is a 78-year-old female who has a significant past medical history of HTN, GERD, CHANEL, solitary rectal ulcer syndrome, cervical disc disorder with myopathy, glaucoma, history of DVT/PE and obesity who presents to ED secondary to acute on chronic back pain. Of significance patient was seen in ED yesterday. She underwent a CT of her lumbar spine which revealed no acute fractures, degenerative changes most pronounced at L3-L4 with L5 being demonstrated to be a transitional vertebrae. Severe canal narrowing at L3-L4 due to disc bulge, spondylolisthesis and advanced facet hypertrophy noted. Also moderate to severe canal narrowing at L2-L3. She denies any recent trauma. She has had back pain for several years. 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 Symptoms have worsened over the last 3 to 4 days. She does have pain going down the right leg into the thigh. She denies any numbness or tingling, saddle anesthesia or loss of bowel or bladder. She has been taking Tylenol and a lidocaine patch without relief. She does have prior history of neck surgery several years ago. She has no prior history of low back surgery or significant trauma. Patient's daughter, son and [id number] are at bedside also help elicit history. In ED yesterday she received IV Zofran, Toradol and fentanyl. Symptoms were mildly improved and therefore she was discharged. Unfortunately patient symptoms worsened today as well as having significant nausea and vomiting due to the pain. She has been unable to keep anything down over the last 24 to 48 hours and therefore re presented back to the ED today. Due to nausea and vomiting CT scan of abdomen pelvis was performed which was without significant abnormality. She received IV fentanyl and IV fluid in ED with minimal relief. Allergies Allergy/AdvReac Type Severity Reaction Status Date / Time erythromycin base Allergy Intermediate RASH Verified 04/01/22 18:32 Opioids - Morphine Analogues Allergy Intermediate increased Verified 01/26/24 13:29 BP, hives oxycodone [From Percocet] Allergy Intermediate INCREASES Verified 04/01/22 18:32 B/P, HIVES morphine AdvReac Severe SEVERE Verified 04/01/22 18:32 NAUSEA AND VOMITING prednisone AdvReac Severe "STEROIDS" Verified 04/01/22 18:32 = "EXTREME HEADACHE AND HEART PALPITATIONS" codeine [From Guiatuss AC] AdvReac Mild N/V Verified 01/26/24 13:22 guaifenesin AdvReac Mild N/V Verified 01/26/24 13:22 [From [facility]] tramadol AdvReac Mild nausea and Verified 01/26/24 13:22 vomit Home Medications Medication Instructions Recorded Confirmed Type aspirin 81 mg tablet,delayed 81 mg PO QAM 04/01/22 01/26/24 History release brimonidine 0.15 % eye drops 1 drp OPB BID 04/01/22 01/26/24 History calcium citrate 315 mg 1 tab PO QAM 04/01/22 01/26/24 History calcium-vitamin D3 6.25 mcg (250 unit) tablet (Citracal + Vitamin D Maximum) dorzolamide 22.3 mg-timolol 6.8 1 drp OPB BID 04/01/22 01/26/24 History mg/mL eye drops esomeprazole magnesium 20 mg 20 mg PO QAM 04/01/22 01/26/24 History capsule,delayed release (Nexium) krill oil 500 mg capsule 500 mg PO BID 04/01/22 01/26/24 History lisinopril 20 mg tablet 20 mg PO QPM 04/01/22 01/26/24 History magnesium chloride 71.5 mg 71.5 mg PO QPM 04/01/22 01/26/24 History (magnesium chloride) tablet,delayed release (Slow-Mag) betamethasone dipropionate 0.05 % 1 applic topical BID PRN Rash 01/25/24 01/26/24 History lotion lidocaine 5 % topical patch 1 patch topical DAILY PRN pain #15 01/25/24 01/26/24 Rx ea meloxicam 15 mg tablet 15 mg PO QAM 01/25/24 01/26/24 History Past Med/Surg History Medical History (Updated 01/26/24 @ 14:02 by Nahed Rehman PA-C) CHANEL on CPAP Hypertension GERD (gastroesophageal reflux disease) Surgical History (Updated 01/26/24 @ 13:55 by Nahed Rehman PA-C) Hx of unilateral oophorectomy R 2/2 cyst Hx of appendectomy Hx of colonoscopy Hx of esophagogastroduodenoscopy Hx of breast biopsy H/O neck surgery Family History Other Breast cancer Cancer Coronary heart disease Social History Smoking Status: Never smoker Hx Alcohol Use: No Hx Substance Use: No Preferred Language: Mosotho Feels Safe at Home: Yes Review of Systems Review of Systems: All systems reviewed & are unremarkable except as noted in HPI & below Physical Exam Physical Exam: please refer to Dr. Luis addendum for physical exam findings. Results & Data Results & Data Vital Signs (Past 12 Hours) Vital Signs Temp Pulse Resp BP Pulse Ox O2 Del Method 01/26/24 12:30 158/86 H 01/26/24 12:30 68 17 99 Room Air 01/26/24 12:02 138/74 01/26/24 12:02 67 17 98 Room Air 01/26/24 12:01 74 19 01/26/24 11:30 186/106 H 01/26/24 11:30 78 18 97 Room Air 01/26/24 11:00 75 19 96 Room Air 01/26/24 11:00 177/96 H 01/26/24 10:48 79 18 97 Room Air 01/26/24 10:30 81 20 95 Room Air 01/26/24 10:30 182/90 H 01/26/24 10:20 74 01/26/24 10:12 68 14 95 Room Air 01/26/24 09:50 37.1 C 68 18 197/84 H 96 Room Air Diagnostic Findings Abdomen/Pelvis CT 01/26/24 11:[address] WITHOUT CONTRAST CT DOSE: 1085.9 mGy.cm HISTORY: Acute right flank pain right flank pain, seen yesterday had CT LS TECHNIQUE: Multiaxial CT images of the abdomen and pelvis were performed without contrast. A dose lowering technique was utilized adhering to the principles of ALARA. COMPARISON STUDY: CT lumbar spine 01/25/2024, CT abdomen and pelvis 04/01/2022 FINDINGS: Mild subsegmental bibasilar atelectasis. There is no pneumatosis or pneumoperitoneum. Coronary artery calcifications. The unenhanced spleen, pancreas, adrenal glands, gallbladder and liver appear unremarkable. No renal or ureteral calculi or hydronephrosis. Mild bilateral pelviectasis is likely physiologic. Unremarkable urinary bladder, uterus and adnexa. Atherosclerosis of the aorta without aneurysm. There is no lymphadenopathy identified. Small hiatal hernia. No bowel obstruction or bowel wall thickening. Colonic diverticulosis. Mild to moderate fecal retention. Appendectomy. No ascites or mesenteric inflammation. Unremarkable soft tissues. Degenerative changes of the spine, pelvis and hips. There is multilevel central canal and neural foraminal narrowing. There is severe intervertebral disc space narrowing at the T12-L1 interspace. Transitional lumbosacral anatomy. IMPRESSION: 1. No acute intra-abdominal or intrapelvic abnormality. 2. No urolith or obstructive uropathy. 3. Colonic diverticulosis. 4. Additional findings as above. ACT 112: Negative or not required by law. The above report was generated using voice recognition software. It may contain grammatical, syntax or spelling errors. Electronically signed by: Chaz Bello M.D. 01/26/2024 12:[address] Lumbar Spine from 01/24: 1. No fractures within the lumbar spine. 2. Degenerative changes as described above most pronounced at the L3-L4 level. 3. L5 is demonstrated to be a transitional vertebra. 4. Additional findings as described above. Medications Administered Medication List Fentanyl Citrate (Fentanyl Citrate Pf 100 Mcg/2 Ml Vial) 50 mcg IV Q15M PRN PRN Reason: Pain Stop: 02/09/24 10:47 Last Admin: 01/26/24 11:26 Dose: 50 mcg Documented By: JACKI Discontinued Medications Sodium Chloride (Nss) 500 mls @ 999 mls/hr IV .Q31M STA Stop: 01/26/24 11:18 Last Infusion: 01/26/24 12:13 Dose: Infused Documented By: Admin: 01/26/24 11:26 Dose: 999 mls/hr Documented By: JACKI Acetaminophen (Ofirmev) 1,000 mg in 100 mls @ 400 mls/hr IV NOW STA Stop: 01/26/24 13:42 Last Admin: 01/26/24 13:44 Dose: 400 mls/hr Documented By: ZHOU Ondansetron HCl (Ondansetron Inj 2 Mg/Ml 2 Ml Vial) 4 mg IV NOW STA Stop: 01/26/24 10:49 Last Admin: 01/26/24 11:26 Dose: 4 mg Documented By: JACKI ECG Additional Comments: I have independently reviewed and interpreted patient's admitting EKG which revealed: Ventricular rate 60 bpm, normal sinus rhythm, no significant change from previous on April 01, 2022 COVID- Results Results Adm Lab Results: RBC 4.48 M/uL (4.20-5.40) 01/26/24 WBC 6.58 K/ul (4.8-10.8) 01/26/24 Hgb 12.9 g/dl (12.0-16.0) 01/26/24 Hct 37.2 % (37.0-47.0) 01/26/24 Plt Count 330 K/uL (130-400) 01/26/24 Neutrophils (%) (Auto) 74.9 % 01/26/24 Lymphocytes (%) (Auto) 19.8 % 01/26/24 Monocytes # (Auto) 0.31 K/uL (0.11-0.59) 01/26/24 Eosinophils # (Auto) 0.00 K/uL (0.00-0.50) 01/26/24 Immature Granulocyte % (Auto) 0.3 % 01/26/24 Neutrophils # (Auto) 4.93 K/uL (1.40-6.50) 01/26/24 Lymphocytes # (Auto) 1.30 K/uL (1.20-3.40) 01/26/24 Monocytes # (Auto) 0.31 K/uL (0.11-0.59) 01/26/24 Eosinophils # (Auto) 0.00 K/uL (0.00-0.50) 01/26/24 Basophils # (Auto) 0.02 K/uL (0.00-0.20) 01/26/24 Immature Granulocyte # (Auto) 0.02 K/uL (0.01-0.20) 4 Na 126 mmol/L (136-145) L 01/26/24 K 3.8 mmol/L (3.5-5.1) 01/26/24 Cl 94 mmol/L (98-107) L 01/26/24 CO2 23 mmol/L (21-32) 01/26/24 Anion Gap 9 (3-11) 01/26/24 BUN 9 mg/dl (6-23) 01/26/24 Creatinine 0.67 mg/dl (0.6-1.2) 01/26/24 BUN/Creatinine Ratio 13.4 (10-20) 01/26/24 Glucose Level 131 mg/dl (70-99(Fasting)) H 01/26/24 Ca 9.2 mg/dl (8.6-10.3) 01/26/24 Total Bilirubin 0.4 mg/dl (0.2-1.0) 01/26/24 AST/SGOT 18 U/L (13-39) 01/26/24 ALT/SGPT 14 U/L (7-52) 01/26/24 Alkaline Phosphatase 51 U/L (34-104) 01/26/24 Total Protein 7.5 gm/dl (6.0-8.3) 01/26/24 Albumin 4.1 gm/dl (3.4-5.0) 01/26/24 Globulin 3.4 gm/dl (2.5-4.0) 01/26/24 Albumin/Globulin Ratio 1.2 (0.9-2) 01/26/24 Code Status & VTE Plan Code Status FULL CODE VTE Prophylaxis Plan VTE Prophylaxis will be ordered: Yes Supervising Physician Co-Signing Physician Notes I have seen and discussed the case with the collaborating advanced practitioner. I agree with the above H&P. I have reviewed and confirmed the patients medical history, the findings on physical examination, and the patients diagnosis and treatment plan with Ori CUNNINGHAM and agree with the information documented. Ms. Moses is a 78-year-old female who has a significant past medical history of HTN, GERD, CHANEL, solitary rectal ulcer syndrome, cervical disc disorder with myopathy, glaucoma, history of DVT/PE and obesity who is admitted for acute on chronic back pain with radiculopathy. Patient radiates to anterior right thigh. Pain so severe with positional changes with resultant nausea/vomiting. No exacerbating process. Denies any urinary incontinence or stool incontinence, as well as any retention issues Declines steroids at this time. Reports back pain present, but fears and declines to roll as she fears the nausea GENERAL APPEARANCE: AxOx4,visibly uncomfortable, mild distress HEENT: NC, AT. MMM. EOMI, clear conjunctiva, oropharynx clear. NECK: Supple without lymphadenopathy. No stiffness or restricted ROM. HEART: Normal rate and regular rhythm, normal S1/S1, no m/r/g LUNGS: CTAB, moving air well. No crackles or wheezes are heard. ABDOMEN: Soft, nontender, nondistended with good bowel sounds heard. EXTREMITIES: Without cyanosis, clubbing or edema. NEUROLOGICAL: Grossly nonfocal. Alert and oriented, moving upper extremities however, declined raising of lower extremities 2/2 pain, sensation intact CN not formally tested but appear grossly intact. Skin: Warm and dry without any rash. #hyponatremia possibly multifactorial iso pain and N/V repeat bmp #nausea/Vomiting iso severe pain, pain control and antiemetics CLD in interim as tolerated #Severe disc space narrowing noted at T12-L1 with radiculopathy #lumbar DJD Pain regimen as above Declined medrol dose pack 2/2 reaction, Pain management consult Ortho spin consult PT/OT when able Rest of plan as above I spent a total of 35 minutes coordinating, documenting, and providing care for this patient excluding time spent in the performance of separately billed services. All of the aforementioned completed outside of collaborating with the assigned advanced practitioner for a full treatment plan. I have reviewed the advanced practitioner's documentation, and I agree with, and take responsibility for the plan of care
[2024-01-26] MEDS: ACETAMINOPHEN 1,000 MG/100 ML VIAL IV STA (13:44)
[2024-01-26] MEDS ORDERED: ALUMINUM/MAGNESIUM SUSP 30 ML UDC PO PRN (16:12)
[2024-01-26] MEDS ORDERED: MAGNESIUM HYDROXIDE SUSP 30 ML UDC PO PRN (16:12)
[2024-01-26] MEDS ORDERED: POLYETHYLENE (MIRALAX) 17 GM PACK PO PRN (16:12)
[2024-01-26] MEDS ORDERED: HYDROmorphone INJ 0.5 MG/0.5 ML SYR IV PRN (16:12)
[2024-01-26] MEDS ORDERED: ONDANSETRON INJ 2 MG/ML 2 ML VIAL IV PRN (16:12)
[2024-01-26] MEDS: PANTOprazole 40 MG in SYRINGE 0 ML IV SCH (18:39)
[2024-01-26] MEDS: SODIUM CHLORIDE 0.9% 1,000 ML IV SCH (18:40)
[2024-01-26 19:39] LABS: BUN Creatinine Ratio 12.5 (10-20); Calcium 8.7 mg/dl (8.6-10.3); Creatinine Clr Calc Pharmacy 56.5 ml/min; Est GFR (African American) 93.6 ml/min; Est GFR (Non-African American) 80.8 ml/min; Potassium 3.8 mmol/L (3.5-5.1)
[2024-01-26] MEDS: CYCLOBENZAPRINE HCL 5 MG TAB PO SCH (20:17)
[2024-01-26] MEDS: ACETAMINOPHEN 1,000 MG/100 ML VIAL IV SCH (20:25)
[2024-01-26] MEDS: DORZOLAMIDE/TIMOLOL 22.3/6.8MG/ML 10 ML BTL OPB SCH (20:26)
[2024-01-26] MEDS: lisinopril 20 MG TAB PO SCH (20:26)
[2024-01-26] MEDS: HEPARIN SOD 5,000 UNIT/0.5 ML VIAL SQ SCH (20:26)
[2024-01-26] MEDS: BRIMONIDINE TARTRATE-P 0.15% 5 ML BTL OPB SCH (20:26)
[2024-01-26] MEDS: LIDOCAINE 5% 1 PATCH TD SCH (20:27)
[2024-01-26 21:00] LABS: Appearance Urine Clear (Clear); Bilirubin Urine Negative (Negative); Blood Urine Negative (Negative); Color Urine Yellow; Glucose Urine UA Negative (Negative); Ketones Urine 1+ (Negative); Leukocyte Esterase Urine Negative (Negative); Nitrite Urine Negative (Negative); Protein Urine Negative (Negative); Specific Gravity Urine 1.016 (1.000-1.030); Urobilinogen Urine Negative (Negative); pH Urine 6.5 (4.5-7.5)
[2024-01-27] MEDS: KETOROLAC TROMETHAMINE 15 MG/ML VIAL IV PRN (02:51)
[2024-01-27 05:08] LABS: Basophils # (auto) 0.02 K/uL (0.00-0.20); Basophils % (auto) 0.4 %; Eosinophils # (auto) 0.02 K/uL (0.00-0.50); Eosinophils % (auto) 0.4 %; Hematocrit (blood only) 35.2 % (37.0-47.0); Hemoglobin 12.1 g/dl (12.0-16.0); Immature Granulocytes # (auto) 0.02 K/uL (0.01-0.20); Immature Granulocytes % (auto) 0.4 %; Lymphocytes # (auto) 1.59 K/uL (1.20-3.40); Lymphocytes % (auto) 28.5 %; Mean Corpuscular Hemoglobin 28.8 pg (25.0-34.0); Mean Corpuscular Hgb Conc 34.4 g/dL (32.0-36.0); Mean Corpuscular Volume 83.8 fL (80.0-100.0); Mean Platelet Volume 9.5 fL (9.4-12.4); Monocytes # (auto) 0.51 K/uL (0.11-0.59); Monocytes % (auto) 9.2 %; Neutrophils # (auto) 3.41 K/uL (1.40-6.50); Neutrophils % (auto) 61.1 %; Platelet Count 306 K/uL (130-400); RDW Coefficient of Variation 12.7 % (11.5-14.5); RDW Standard Deviation 38.5 fL (36.4-46.3); White Blood Count 5.57 K/ul (4.8-10.8)
[2024-01-27 05:15] LABS: Albumin Globulin Ratio 1.2 (0.9-2); Albumin Level 3.8 gm/dl (3.4-5.0); BUN Creatinine Ratio 13.4 (10-20); Bilirubin,Total 0.5 mg/dl (0.2-1.0); Calcium 8.9 mg/dl (8.6-10.3); Creatinine Clr Calc Pharmacy 60.7 ml/min; Est GFR (African American) 98.3 ml/min; Est GFR (Non-African American) 84.8 ml/min; Globulin 3.1 gm/dl (2.5-4.0); Magnesium 1.6 mg/dl (1.7-2.4); Potassium 3.7 mmol/L (3.5-5.1); Total Protein 6.9 gm/dl (6.0-8.3)
[2024-01-27 06:57] LABS: Estimated Average Glucose 117 mg/dl; Hemoglobin A1C 5.7 % (4.5-5.6)
--- NOTE | 2024-01-27 08:25 | Orthopedic Consultation ---
Date of Consultation January 27, 2024 Assessment & Plan (1) Spondylolisthesis at L3-L4 level: Assessment lumbar spinal stenosis with neurogenic claudication, spondylolisthesis L3-L4. CAT scan lumbar spine available for review performed 01/25/2024 does demonstrate anterolisthesis L3-L4 with evidence of severe facet hypertrophy on axillary views. I appreciate more marked osseous overgrowth into the lateral recess at L3-L4. This undoubtedly would encroach on the traversing nerve roots consistent with her pain patterns. Plan at this time would like to obtain an MRI lumbar spine urgently. I have physical therapy assess her limitation. Ultimately she may require injections or surgical intervention to address her neural compression. Patient understands agrees. History of Present Illness Reason for Consultation: Right leg pain Attending Physician: Katie Butler MD History of Present Illness This is a very pleasant 78-year-old female presents with a history of intermittent right leg radicular pain. Unfortunately the past several weeks has been quite limiting in nature and severe without resolution. She has not u ndergone any recent injections or physical therapy for this. She is markedly limited with any ability to stand and ambulate. In fact the pain is gone to the point that she is nauseated and has been vomiting. She denies any precipitating trauma fall or event. Overall she is a very active person prior to this decline in status. Left lower extremity is asymptomatic. The pain patterns involve the buttock groin and anterior right thigh not extending below the knee. She is most comfortable in breast. Allergies Allergy/AdvReac Type Severity Reaction Status Date / Time erythromycin base Allergy Intermediate RASH Verified 04/01/22 18:32 Opioids - Morphine Analogues Allergy Intermediate increased Verified 01/26/24 13:29 BP, hives oxycodone [From Percocet] Allergy Intermediate INCREASES Verified 04/01/22 18:32 B/P, HIVES morphine AdvReac Severe SEVERE Verified 04/01/22 18:32 NAUSEA AND VOMITING prednisone AdvReac Severe "STEROIDS" Verified 04/01/22 18:32 = "EXTREME HEADACHE AND HEART PALPITATIONS" codeine [From Guiatuss AC] AdvReac Mild N/V Verified 01/26/24 13:22 guaifenesin AdvReac Mild N/V Verified 01/26/24 13:22 [From Guiatuss AC] tramadol AdvReac Mild nausea and Verified 01/26/24 13:22 vomit Home Medications Medication Instructions Recorded Confirmed Type aspirin 81 mg tablet,delayed 81 mg PO QAM 04/01/22 01/26/24 History release brimonidine 0.15 % eye drops 1 drp OPB BID 04/01/22 01/26/24 History calcium citrate 315 mg 1 tab PO QAM 04/01/22 01/26/24 History calcium-vitamin D3 6.25 mcg (250 unit) tablet (Citracal + Vitamin D Maximum) dorzolamide 22.3 mg-timolol 6.8 1 drp OPB BID 04/01/22 01/26/24 History mg/mL eye drops esomeprazole magnesium 20 mg 20 mg PO QAM 04/01/22 01/26/24 History capsule,delayed release (Nexium) krill oil 500 mg capsule 500 mg PO BID 04/01/22 01/26/24 History lisinopril 20 mg tablet 20 mg PO QPM 04/01/22 01/26/24 History magnesium chloride 71.5 mg 71.5 mg PO QPM 04/01/22 01/26/24 History (magnesium chloride) tablet,delayed release (Slow-Mag) betamethasone dipropionate 0.05 % 1 applic topical BID PRN Rash 01/25/24 01/26/24 History lotion lidocaine 5 % topical patch 1 patch topical DAILY PRN pain #15 01/25/24 01/26/24 Rx ea meloxicam 15 mg tablet 15 mg PO QAM 01/25/24 01/26/24 History Patient History Medical History (Updated 01/26/24 @ 14:02 by Nahed Rehman PA-C) CHANEL on CPAP Hypertension GERD (gastroesophageal reflux disease) Surgical History (Updated 01/26/24 @ 13:55 by Nahed Rehman PA-C) Hx of unilateral oophorectomy R 2/2 cyst Hx of appendectomy Hx of colonoscopy Hx of esophagogastroduodenoscopy Hx of breast biopsy H/O neck surgery Family History Other Breast cancer Cancer Coronary heart disease Social History Smoking Status: Never smoker Hx Alcohol Use: No Hx Substance Use: No Preferred Language: Hebrew Tool Repairer Required: No Beliefs That Will Affect Care: None Current Living Situation: Alone Other Information That Helps Us Care for You: No Feels Safe at Home: Yes Assistive Devices: Glasses and Hearing Aid - Bilateral Physical Exam Physical Exam: On exam she is sitting in bed. Her daughter is at the bedside. She is cooperative and alert. She exhibits plus 5 out of 5 plantarflexion dorsiflexion quadriceps. Sensory appears to be intact to cold and light touch. She has no tension signs straight leg raising and negative logroll. Results & Data Vital Signs (Past 12 Hours) Vital Signs Temp Pulse Pulse Resp BP Pulse Ox O2 Del Method 01/27/24 08:05 63 01/27/24 07:52 36.9 C 96 H 16 93/63 L 96 Room Air 01/27/24 03:14 36.8 C 66 16 176/82 H 95 Room Air 01/27/24 01:07 63 01/26/24 22:12 36.8 C 63 16 174/76 H 91 Room Air
[2024-01-27] MEDS: ACETAMINOPHEN 325 MG TAB PO PRN (09:30)
[2024-01-27] MEDS: LORazepam 0.5 MG TAB PO STA (11:33)
--- NOTE | 2024-01-27 15:23 | Magnetic Resonance Report ---
MR lumbar spine wo con CLINICAL HISTORY: 78 years-old Female with right leg pain. Chronic low back pain with right lower ex tremity radicular symptoms. COMPARISON: CT 01/25/2024. TECHNIQUE: Multiplanar, multi sequence MRI of the lumbar spine was performed without intravenous cont rast. FINDINGS: Transitional lumbosacral anatomy redemonstrated. There is partial sacralization of the L5 segment. Th e L5-S1 intervertebral disc spaces described on axial image 28. The church business administrator localizer images demonstrat e no gross extra spinal abnormality. No acute fracture, subluxation or endplate erosion. Conus medull antonio terminates at L1-L2. Normal signal within the imaged thoracic spinal cord. There is minimal nons pecific increased T2 signal within the lumbar paravertebral musculature. Severe T12-L1 intervertebral disc space narrowing with likely degenerative related 3 mm retrolisthesis. Distended urinary bladder . Anteflexed uterus. T12-L1: Severe intervertebral disc space narrowing and circumferential disc osteophyte complex and g rade 1 retrolisthesis. Ligamentum flavum thickening with advanced facet arthrosis. Mild triangular ce ntral canal stenosis with AP dimension of the central canal measuring 9 mm. Severe bilateral foramina l stenosis. L1-L2: Mild intervertebral disc space narrowing with small circumferential disc osteophyte complex. Ligamentum flavum thickening with advanced facet arthrosis and trace facet effusions. There is a post erior annular fissure with right foraminal/far lateral disc protrusion measuring 1.4 cm transversely on image 7 series 7 with adjacent edema seen best on the sagittal STIR series. Moderate to severe rig ht foraminal stenosis. Mild central canal stenosis, AP dimension of the central canal measuring 9 mm. Mild to moderate left foraminal narrowing. Edema extends into the right neural foramen. L2-L3: Mild to moderate intervertebral disc space narrowing and spondylotic spurring with circumfere ntial annular disc bulge, ligamentum flavum thickening and advanced facet arthrosis with trace facet effusions. Severe central canal stenosis with AP dimension of the thecal sac measuring 5 mm. There is at least moderate narrowing of the lateral recesses. Mild to moderate right with moderate left sallie inal stenosis. L3-L4: Mild to moderate posterior intervertebral disc space narrowing and spondylotic spurring with circumferential annular disc bulge. Ligamentum flavum thickening with advanced facet arthrosis and sm all facet effusions. Severe central canal stenosis with AP dimension of the thecal sac measuring 3 mm . Severe narrowing of the lateral recesses. Mild to moderate right with moderate to severe left sallie inal stenosis L4-L5: Mild intervertebral disc space narrowing and spondylotic spurring with degenerative related t o 3 mm anterolisthesis. Advanced facet arthrosis. The central canal is patent. There is at least mild narrowing of the lateral recesses. Mild bilateral foraminal stenosis. L5-S1: Transitional lumbosacral anatomy as above. No central canal or neural foraminal stenosis. IMPRESSION: 1. At L1-L2, there is a posterior annular fissure with right foraminal/right far lateral disc protrus ion causing moderate to severe right foraminal stenosis with reactive edema extending into the right neural foramen. 2. Severe central canal stenosis at L2-L3 and L3-L4 with multilevel neural foraminal narrowing as abo ve. 3. Severe intervertebral disc space narrowing at T12-L1. 4. Transitional lumbosacral anatomy redemonstrated. ACT 112: Negative or not required by law. The above report was generated using voice recognition software. It may contain grammatical, syntax o r spelling errors. Dictated: 01/27/2024 1:05 PM Transcribed: 01/27/2024 1:30 PM Fanny [id number] Travis [id number] Electronically signed by: Chaz Bello M.D. 01/27/2024 3:21 PM
--- NOTE | 2024-01-27 16:37 | Hospitalist Progress Note ---
Date of Service January 27, 2024 Assessment & Plan (1) Acute exacerbation of chronic low back pain: (2) Spondylolisthesis at L3-L4 level: (3) Bulging lumbar disc: (4) Lumbar radiculopathy: (5) Chronic hyponatremia: (6) Hypertension: (7) CHANEL on CPAP: (8) Hx of deep venous thrombosis: Plan This is a 78-year-old female who has a significant past medical history of HTN, GERD, CHANEL, solitary rectal ulcer syndrome, cervical disc disorder with myopathy, glaucoma, history of DVT/PE and obesity who presents to ED secondary to acute on chronic back pain. Acute on Chronic Back Pain --CT Lumbar spine reviewed from 01/24 showed Severe canal narrowing at L3-L4 due to disc bulge, spondylolisthesis and advanced facet hypertrophy noted. Also moderate to severe canal narrowing at L2-L3. 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 Boucher Admission and Anticipated Discharge Date Admission Date: January 26, 2024 Subjective 01/27/2024 The patient was seen and examined in medical telemetry unit She has been complaining of severe pain in the lower back radiation to the right buttock and thigh up to the knee joint Denies any problem with urine or bowel habit No other symptoms at rest Review of Systems Review of Systems: All systems reviewed and are unremarkable except as noted below Physical Exam Physical Exam: Sitting on a chair with right legs elevated to the bed to decrease pain Constitutional: well developed, well nourished, + ill appearing and + obese Eyes: PERRL, conjunctivae normal, anicteric sclerae ENMT: external ear and nose normal, oropharynx normal Neck: trachea midline, no thyromegaly Respiratory: no respiratory distress Auscultation: lungs clear to auscultation bilaterally Cardiovascular: Rate/Rhythm: regular rate and regular rhythm; not tachycardic Heart Sounds: normal S1 and normal S2; no murmur Extremities: no edema Gastrointestinal (Abdomen): Inspection/Auscultation: normal bowel sounds; abdomen not distended Percussion/Palpation: abdomen soft; abdomen nontender Musculoskeletal: Localized tenderness of the lower back. Spinal movement is painful with radiation to the right leg Neurologic: Impaired sensation right thigh. Psychiatric: A+Ox3, euthymic affect Lymphatic: no cervical or axillary lymphadenopathy Results & Data Results & Data Vital Signs (Past 12 Hours) Vital Signs Temp Pulse Pulse Resp BP Pulse Ox O2 Del Method 01/27/24 16:10 70 01/27/24 15:33 36.6 C 64 20 171/85 H 97 Room Air 01/27/24 12:06 36.6 C 74 16 171/95 H 96 Room Air 01/27/24 08:05 63 01/27/24 07:52 36.9 C 96 H 16 93/63 L 96 Room Air Laboratory Results Short CBC 01/27/24 Range/Units 04:39 WBC 5.57 (4.8-10.8) K/ul Hgb 12.1 (12.0-16.0) g/dl Hct 35.2 L (37.0-47.0) % Plt Count 306 (130-400) K/uL [facility] 01/26/24 01/27/24 19:02 04:39 Sodium 129 L 130 L Potassium 3.8 3.7 Chloride 97 L 98 Carbon Dioxide 24 26 BUN 9 9 Creatinine 0.72 0.67 Glucose 111 H 99 Calcium 8.7 8.9 Liver Function 01/27/24 Range/Units 04:39 Total Bilirubin 0.5 (0.2-1.0) mg/dl AST 22 (13-39) U/L ALT 15 (7-52) U/L Alkaline Phosphatase 45 (34-104) U/L Albumin 3.8 (3.4-5.0) gm/dl Urine 01/26/24 Range/Units 20:30 Urine Color Yellow Urine Appearance Clear (Clear) Urine pH 6.5 (4.5-7.5) Ur Specific Loa 1.016 (1.000-1.030) Urine Protein Negative (Negative) Urine Glucose (UA) Negative (Negative) Medications Administered Current Inpatient Medications Acetaminophen (Acetaminophen 325 Mg Tab) 650 mg PO Q4H PRN PRN Reason: Pain or Fever Stop: 02/25/24 16:11 Last Admin: 01/27/24 09:30 Dose: 650 mg Al Hydrox/Mg Hydrox/Simethicone (Aluminum/Magnesium Susp 30 Ml Udc) 15 ml PO Q4H PRN PRN Reason: Dyspepsia Stop: 02/25/24 16:11 Brimonidine Tartrate (Brimonidine Tartrate-P 0.15% 5 Ml Btl) 1 drops OPB BID [facility] Stop: 02/25/24 20:59 Last Admin: 01/27/24 09:32 Dose: 1 drops Cyclobenzaprine HCl (Cyclobenzaprine Hcl 5 Mg Tab) 5 mg PO TID [facility] Stop: 02/25/24 16:29 Last Admin: 01/27/24 13:21 Dose: 5 mg Dorzolamide/Timolol (Dorzolamide/Timolol 22.3/6.8mg/Ml 10 Ml Btl) 1 drops OPB BID [facility] Stop: 02/25/24 20:59 Last Admin: 01/27/24 09:32 Dose: 1 drops Heparin Sodium (Porcine) (Heparin Sod 5,000 Unit/0.5 Ml Vial) 5,000 units SQ Q8 [facility] Stop: 02/25/24 21:59 Last Admin: 01/27/24 13:19 Dose: Not Given Hydromorphone HCl (Hydromorphone Inj 0.5 Mg/0.5 Ml Syr) 0.25 mg IV Q6H PRN PRN Reason: Severe Pain (Scale 7, 8, 9,10) Stop: 02/09/24 16:11 Acetaminophen (Ofirmev) 1,000 mg in 100 mls @ 400 mls/hr IV Q8H [facility] Stop: 01/29/24 20:59 Last Admin: 01/27/24 13:25 Dose: Not Given Pantoprazole Sodium 40 mg/ (Syringe) 10 mls @ 5 mls/min IV DAILY@1100 [facility] Stop: 02/25/24 16:29 Last Admin: 01/27/24 10:47 Dose: 5 mls/min Ketorolac Tromethamine (Ketorolac Tromethamine 15 Mg/Ml Vial) 15 mg IV Q6H PRN PRN Reason: Moderate Pain (Scale 4, 5, 6) Stop: 01/31/24 16:11 Last Admin: 01/27/24 16:20 Dose: 15 mg Lidocaine (Lidocaine 5% 1 Patch) 1 patch TD QAM [facility] Stop: 02/25/24 16:29 Last Admin: 01/27/24 10:46 Dose: 1 patch Lisinopril (Lisinopril 20 Mg Tab) 20 mg PO QPM [facility] Stop: 02/25/24 20:59 Last Admin: 01/26/24 20:26 Dose: 20 mg Magnesium Hydroxide (Magnesium Hydroxide Susp 30 Ml Udc) 30 ml PO Q12H PRN PRN Reason: Constipation Stop: 02/25/24 16:11 Miscellaneous (Remove Lidoderm Patch) 1 each N/A DAILY@2100 [facility] Stop: 02/25/24 20:59 Last Admin: 01/26/24 20:27 Dose: Not Given Ondansetron HCl (Ondansetron Inj 2 Mg/Ml 2 Ml Vial) 4 mg IV Q6H PRN PRN Reason: Nausea Stop: 02/25/24 16:11 Polyethylene Glycol (Polyethylene (Miralax) 17 Gm Pack) 17 gm PO DAILY PRN PRN Reason: Constipation Stop: 02/25/24 16:11
[2024-01-28 07:46] LABS: BUN Creatinine Ratio 15.7 (10-20); Calcium 8.3 mg/dl (8.6-10.3); Creatinine Clr Calc Pharmacy 58.7 ml/min; Est GFR (African American) 96.9 ml/min; Est GFR (Non-African American) 83.6 ml/min; Potassium 3.7 mmol/L (3.5-5.1)
--- NOTE | 2024-01-28 08:46 | Pain Management Consultation ---
Date of Consultation January 28, 2024 Assessment & Plan (1) Lumbar radiculopathy: (2) Lumbar disc herniation with radiculopathy: Plan 1. Patient with acute on chronic low back pain with a right upper lumbar radiculopathy likely corresponding with the MRI finding of a right L1-2 foraminal/far lateral disc protrusion causing severe foraminal stenosis. Treatment options were discussed including but limited to conservative management pursuing surgical intervention. We did discuss pursuing a right L1-[address] Castro was present and discussed surgical options as well. Patient will make decision after discussion with family and update her nurse appropriately. Patient would undergo a right L1-2 transforaminal CHARITO and special procedures later today with Dr. Farley if she chooses. She will remain n.p.o. pending her decision making process. History of Present Illness Reason for Consultation: Intractable right sided low back pain extending to the right groin and thigh Requesting Physician: Nahed Rehman PA-C Attending Physician: Maryanne Gudino MD History of Present Illness Mrs. eRnner is a 78-year-old white female who was admitted due to intractable low back pain extending to the right lateral hip and groin as well as the anterior proximal thigh stopping at the level the knee. The patient has been experiencing some increased pain complaints over the past 3 to 4 weeks but her pain became severe over the past 4 to 5 days without known injury. She describes the pain as aching with episodes of sharp, shooting and burning characteristic pain traveling to the hip and thigh with movement. Her pain is minimal in the sitting and supine position rating her pain a 2-3/10. Pain can escalate to a 7-8/10 with movement. She does describe some weakness of the right lower extremity but denies foot drop or falling. She denies any left lower extremity radicular pain. Patient indicates that her pain was so severe prior to admission that she was experiencing associated nausea and vomiting with the episodes of severe pain. The patient denies bowel or bladder incontinence or saddle anesthesia. Patient was evaluated by Dr. Castro yesterday who ordered a stat MRI. Patient was made n.p.o. overnight for consideration of surgical intervention later today. There has been no decision made regarding pursuing surgical intervention. Patient does have prior history of cervical spine fusion with Dr. Nassar many years ago. She denied prior epidural steroid injections prior to her cervical spine surgery. She has past medical history significant for hypertension, GERD, CHANEL, glaucoma, history of DVT/PE, obesity and chronic hyponatremia. Patient indicates that [place] and does care for animals. She is concerned about recovery and her ability to return to her typical daytime activities. Patient has no further constitutional complaints. Plan of care discussed with Dr. Kayley Farley. Pain Assessment Full Body Front + Back: 2 1. Right low back extending towards the right lateral proximal hip 2. Right lateral hip, groin and anterior proximal thigh Pain scale - at its best (0-10): 2 Pain scale - at its worst (0-10): 8 Allergies Allergy/AdvReac Type Severity Reaction Status Date / Time erythromycin base Allergy Intermediate RASH Verified 04/01/22 18:32 Opioids - Morphine Analogues Allergy Intermediate increased Verified 01/26/24 13:29 BP, hives oxycodone [From Percocet] Allergy Intermediate INCREASES Verified 04/01/22 18:32 B/P, HIVES morphine AdvReac Severe SEVERE Verified 04/01/22 18:32 NAUSEA AND VOMITING prednisone AdvReac Severe "STEROIDS" Verified 04/01/22 18:32 = "EXTREME HEADACHE AND HEART PALPITATIONS" codeine [From [facility]] AdvReac Mild N/V Verified 01/26/24 13:22 guaifenesin AdvReac Mild N/V Verified 01/26/24 13:22 [From [facility]] tramadol AdvReac Mild nausea and Verified 01/26/24 13:22 vomit Home Medications Medication Instructions Recorded Confirmed Type aspirin 81 mg tablet,delayed 81 mg PO QAM 04/01/22 01/26/24 History release brimonidine 0.15 % eye drops 1 drp OPB BID 04/01/22 01/26/24 History calcium citrate 315 mg 1 tab PO QAM 04/01/22 01/26/24 History calcium-vitamin D3 6.25 mcg (250 unit) tablet (Citracal + Vitamin D Maximum) dorzolamide 22.3 mg-timolol 6.8 1 drp OPB BID 04/01/22 01/26/24 History mg/mL eye drops esomeprazole magnesium 20 mg 20 mg PO QAM 04/01/22 01/26/24 History capsule,delayed release (Nexium) krill oil 500 mg capsule 500 mg PO BID 04/01/22 01/26/24 History lisinopril 20 mg tablet 20 mg PO QPM 04/01/22 01/26/24 History magnesium chloride 71.5 mg 71.5 mg PO QPM 04/01/22 01/26/24 History (magnesium chloride) tablet,delayed release (Slow-Mag) betamethasone dipropionate 0.05 % 1 applic topical BID PRN Rash 01/25/24 01/26/24 History lotion lidocaine 5 % topical patch 1 patch topical DAILY PRN pain #15 01/25/24 01/26/24 Rx ea meloxicam 15 mg tablet 15 mg PO QAM 01/25/24 01/26/24 History Pain History Pain Intensity Pain scale - at its best (0-10): 2 Pain scale - at its worst (0-10): 8 Patient History Medical History (Updated 01/28/24 @ 08:49 by Tang Saenz PA-C) Lumbar disc herniation with radiculopathy Right L1-2 right foraminal/right far lateral disc protrusion or MRI 01/26/2024 CHANEL on CPAP Hypertension GERD (gastroesophageal reflux disease) Surgical History (Updated 01/26/24 @ 13:55 by Nahed Rehman PA-C) Hx of unilateral oophorectomy R 2/2 cyst Hx of appendectomy Hx of colonoscopy Hx of esophagogastroduodenoscopy Hx of breast biopsy H/O neck surgery Family History Other Breast cancer Cancer Coronary heart disease Social History Smoking Status: Never smoker Hx Alcohol Use: No Hx Substance Use: No Preferred Language: Nepali Communication Ability: Effective Merchandise Marker Required: No Beliefs That Will Affect Care: None Current Living Situation: Alone Other Information That Helps Us Care for You: No Feels Safe at Home: Yes Assistive Devices: Stair Lift Physical Exam 2 Physical Exam: General: Patient sitting quietly in exam room in no acute distress. Speech and thought process appropriate. Mood and affect appropriate. Cognition intact. Head: Normocephalic and atraumatic. ENT: No evidence of nasal or oral mucosal lesions. Mucous membranes are moist. Eyes: Pupils equal round reactive to light. Neck: Supple without adenopathy and full range of motion. Abdomen: Soft and nondistended. No organomegaly. Bowel sounds active. Back/spine: Nontender to palpation over the midline. No focal facet or SI joint tenderness. Nontender over the lumbar paravertebral or quadratus lumborum musculature. Minimally tender throughout the right gluteal region. Lower extremities: SLR reproduces some lateral hip and proximal groin/thigh region pain on right. SLR negative on left. Strength testing 5/5 with dorsi and plantarflexion bilaterally. Strength 4+/5 on the right with hip flexion/extension maneuvering and 5/5 on the left. Sensation intact distally to sharp and dull without deficit. Neurologic: Cranial nerves grossly intact. Ambulatory function not witnessed. Results (Pain Clinic) Diagnostic Review MRI Findings: [place], [place] [phone] Magnetic Resonance Report Patient: GEOVANI RENNER Admit Date: 01/26/24 MR#: [id number] Address1: [facility] HYACINTH PÉREZ Acct ID:[id number] Address2: Date: 1945 [facility] Zip: [place] [address] Age: 78 Location: 2W Sex: F Room/Bed: [facility] Att Phy: Katie Butler MD Diagnosis: ACUTE ON CHRONIC BACK PAIN;HYPONATREMIA Pinky Phy: Brook Boucher DO Service Date: 01/27/24 Fam Phy: Interpreting Phy: Chaz BelloAdmit Phy: Janna Luis MD Ordering Phy: Mike Castro D.O. cc: ~ MR lumbar spine wo con CLINICAL HISTORY: 78 years-old Female with right leg pain. Chronic low back pain with right lower extremity radicular symptoms. COMPARISON: CT 01/25/2024. TECHNIQUE: Multiplanar, multi sequence MRI of the lumbar spine was performed without intravenous contrast. FINDINGS: Transitional lumbosacral anatomy redemonstrated. There is partial sacralization of the L5 segment. The L5-S1 intervertebral disc spaces described on axial image 28. The receivable executive localizer images demonstrate no gross extra spinal abnormality. No acute fracture, subluxation or endplate erosion. Conus medullaris terminates at L1-L2. Normal signal within the imaged thoracic spinal cord. There is minimal nonspecific increased T2 signal within the lumbar paravertebral musculature. Severe T12-L1 intervertebral disc space narrowing with likely degenerative related 3 mm retrolisthesis. Distended urinary bladder. Anteflexed uterus. T12-L1: Severe intervertebral disc space narrowing and circumferential disc osteophyte complex and grade 1 retrolisthesis. Ligamentum flavum thickening with advanced facet arthrosis. Mild triangular central canal stenosis with AP dimension of the central canal measuring 9 mm. Severe bilateral foraminal stenosis. L1-L2: Mild intervertebral disc space narrowing with small circumferential disc osteophyte complex. Ligamentum flavum thickening with advanced facet arthrosis and trace facet effusions. There is a posterior annular fissure with right foraminal/far lateral disc protrusion measuring 1.4 cm transversely on image 7 series 7 with adjacent edema seen best on the sagittal STIR series. Moderate to severe right foraminal stenosis. Mild central canal stenosis, AP dimension of the central canal measuring 9 mm. Mild to moderate left foraminal narrowing. Edema extends into the right neural foramen. L2-L3: Mild to moderate intervertebral disc space narrowing and spondylotic spurring with circumferential annular disc bulge, ligamentum flavum thickening and advanced facet arthrosis with trace facet effusions. Severe central canal stenosis with AP dimension of the thecal sac measuring 5 mm. There is at least moderate narrowing of the lateral recesses. Mild to moderate right with moderate left foraminal stenosis. L3-L4: Mild to moderate posterior intervertebral disc space narrowing and spondylotic spurring with circumferential annular disc bulge. Ligamentum flavum thickening with advanced facet arthrosis and small facet effusions. Severe central canal stenosis with AP dimension of the thecal sac measuring 3 mm. Severe narrowing of the lateral recesses. Mild to moderate right with moderate to severe left foraminal stenosis L4-L5: Mild intervertebral disc space narrowing and spondylotic spurring with degenerative related to 3 mm anterolisthesis. Advanced facet arthrosis. The central canal is patent. There is at least mild narrowing of the lateral recesses. Mild bilateral foraminal stenosis. L5-S1: Transitional lumbosacral anatomy as above. No central canal or neural foraminal stenosis. IMPRESSION: 1. At L1-L2, there is a posterior annular fissure with right foraminal/right far lateral disc protrusion causing moderate to severe right foraminal stenosis with reactive edema extending into the right neural foramen. 2. Severe central canal stenosis at L2-L3 and L3-L4 with multilevel neural foraminal narrowing as above. 3. Severe intervertebral disc space narrowing at T12-L1. 4. Transitional lumbosacral anatomy redemonstrated. ACT 112: Negative or not required by law. The above report was generated using voice recognition software. It may contain grammatical, syntax or spelling errors. Dictated: 01/27/2024 1:05 PM Transcribed: 01/27/2024 1:30 PM Fanny [id number] DALTON_Barron [id number] Electronically signed by: Chaz Bello M.D. 01/27/2024 3:21 PM Dictated: 01/27/24 1305 Transcribed: 01/27/24 1330 Previous Records Review Previous Records: personally reviewed by me
[2024-01-28] MEDS: SODIUM CHLORIDE 0.9% 1,000 ML IV SCH ×2 (09:21→20:15)
--- NOTE | 2024-01-28 09:56 | History & Physical Bridge Note ---
Date of Service January 28, 2024 History & Physical Bridge Note I have examined the patient, reviewed the History & Physical and in the interval since the performance of the History & Physical I have noted the following changes of clinical significance: no changes noted Patient continues to have severe right anterior thigh pain. She struggles to ambulate with physical therapy range between a 7-9 out of 10. She is unstable on her feet. Light of her MRI findings and clinical course I am recommending emergent discectomy L1-L2. This would require a decompression and fusion L1-L2 to safely and adequately remove the entire disc and free the nerve. Patient and her family understand agree. Will plan for surgery soon as possible.
--- NOTE | 2024-01-28 10:08 | XRay Report ---
XR chest 1V portable HISTORY: pre op COMPARISON: Chest 04/01/2022. FINDINGS: No pneumothorax. No pleural effusions. The heart is normal in size. Left basilar linear den sity favors scarring. This remains unchanged. Otherwise, the lungs are clear. Cervical spinal fusion hardware again noted. No acute fractures. IMPRESSION: No significant change compared to the prior study. No acute process. ACT 112: Negative or not required by law. Electronically signed by: Colin Clark M.D. 01/28/2024 10:07 AM
--- NOTE | 2024-01-28 10:29 | Hospitalist Progress Note ---
Date of Service January 28, 2024 Assessment & Plan (1) Acute exacerbation of chronic low back pain: (2) Spondylolisthesis at L3-L4 level: (3) Bulging lumbar disc: (4) Lumbar radiculopathy: (5) Chronic hyponatremia: (6) Hypertension: (7) CHANEL on CPAP: (8) Hx of deep venous thrombosis: Plan This is a 78-year-old female who has a significant past medical history of HTN, GERD, CHANEL, solitary rectal ulcer syndrome, cervical disc disorder with myopathy, glaucoma, history of DVT/PE and obesity who presents to ED secondary to acute on chronic back pain. Acute on Chronic Back Pain --CT Lumbar spine reviewed from 01/24 showed Severe canal narrowing at L3-L4 due to disc bulge, spondylolisthesis and advanced facet hypertrophy noted. Also moderate to severe canal narrowing at L2-L3. Schedule APAP, cyclobenazaprine Pt with significant allergies: prn IV dilaudid for severe pain, IV toradol for mod pain Heat, Lidocaine patch Pt with significant N/V 2/2 pain, will place most meds as IV for now until better tolerating PO consult pain management for assistance with pain control Appreciate orthospine input and recommendation MRI of the lumbar spine showed-severe canal stenosis and nerve root compression as mentioned in the report Family and patient discussing between lumbar surgery vs CHARITO with pain management, remain NPO for upcoming procedure today Chronic Hyponatremia obtain sodium studies 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 Boucher A total of 45 minutes was spent coordinating, documenting, and providing care for this patient excluding time spent in the performance of separately billed services. This included personally viewing all current laboratories and imaging studies, medication reconciliation, outpatient chart review, and discussion with specialists. Admission and Anticipated Discharge Date Admission Date: January 26, 2024 Subjective Patient was seen and examined in 262. Follow-up acute on chronic low back pain. Daughter and [id number] are at bedside. She was seen and evaluated by pain management and orthospine this morning. She is contemplating undergoing surgical intervention versus CHARITO. They are waiting for her son to arrive to make a family decision. She is Leaning toward surgical fixation especially with her reaction to steroids. Family elicits patient has difficulty with anesthesia. Her difficulty includes arousing from anesthesia as well as postoperative nausea. Her last major surgery was in 2012. She denies any current chest pain, shortness of breath, cough, URI symptoms. Review of Systems Review of Systems: All systems reviewed & are unremarkable except as noted in HPI & below Physical Exam Physical Exam: Gen: WD/WN, sitting up in bed, pleasant, NAD, A&O x3 HEENT: Normocephalic, atraumatic, conjunctivae moist, sclerae anicteric, mucous membranes moist. Lung: Clear to Auscultation bilaterally, no wheezes/rales/rhonchi Heart: Regular rate, regular rhythm, no murmurs, rubs, or gallops Abdomen: Soft, NT, ND +BS x 4 Extremities: No edema Skin: Warm, no rash, negative turgor. Results & Data Results & Data Vital Signs (Past 12 Hours) Vital Signs Temp Pulse Pulse Resp BP Pulse Ox O2 Del Method 01/28/24 07:57 36.8 C 67 16 159/82 H 96 Room Air 01/28/24 07:17 66 01/28/24 03:54 36.9 C 67 18 151/79 H 95 Room Air 01/27/24 23:14 36.8 C 76 18 138/76 98 Room Air Laboratory Results [facility] 01/28/24 07:01 Sodium 129 L Potassium 3.7 Chloride 98 Carbon Dioxide 25 BUN 11 Creatinine 0.70 Glucose 101 H Calcium 8.3 L Diagnostic Findings Chest X-Ray 01/28/24 09:44 XR chest 1V portable HISTORY: pre op COMPARISON: Chest 04/01/2022. FINDINGS: No pneumothorax. No pleural effusions. The heart is normal in size. Left basilar linear density favors scarring. This remains unchanged. Otherwise, the lungs are clear. Cervical spinal fusion hardware again noted. No acute fractures. IMPRESSION: No significant change compared to the prior study. No acute process. ACT 112: Negative or not required by law. Electronically signed by: Colin Clark M.D. 01/28/2024 10:07 AM Lumbar Spine MRI 01/27/24 08:26 MR lumbar spine wo con CLINICAL HISTORY: 78 years-old Female with right leg pain. Chronic low back pain with right lower extremity radicular symptoms. COMPARISON: CT 01/25/2024. TECHNIQUE: Multiplanar, multi sequence MRI of the lumbar spine was performed without intravenous contrast. FINDINGS: Transitional lumbosacral anatomy redemonstrated. There is partial sacralization of the L5 segment. The L5-S1 intervertebral disc spaces described on axial image 28. The stone breaker localizer images demonstrate no gross extra spinal abnormality. No acute fracture, subluxation or endplate erosion. Conus medullaris terminates at L1-L2. Normal signal within the imaged thoracic spinal cord. There is minimal nonspecific increased T2 signal within the lumbar paravertebral musculature. Severe T12-L1 intervertebral disc space narrowing with likely degenerative related 3 mm retrolisthesis. Distended urinary bladder. Anteflexed uterus. T12-L1: Severe intervertebral disc space narrowing and circumferential disc osteophyte complex and grade 1 retrolisthesis. Ligamentum flavum thickening with advanced facet arthrosis. Mild triangular central canal stenosis with AP dimension of the central canal measuring 9 mm. Severe bilateral foraminal stenosis. L1-L2: Mild intervertebral disc space narrowing with small circumferential disc osteophyte complex. Ligamentum flavum thickening with advanced facet arthrosis and trace facet effusions. There is a posterior annular fissure with right foraminal/far lateral disc protrusion measuring 1.4 cm transversely on image 7 series 7 with adjacent edema seen best on the sagittal STIR series. Moderate to severe right foraminal stenosis. Mild central canal stenosis, AP dimension of the central canal measuring 9 mm. Mild to moderate left foraminal narrowing. Edema extends into the right neural foramen. L2-L3: Mild to moderate intervertebral disc space narrowing and spondylotic spurring with circumferential annular disc bulge, ligamentum flavum thickening and advanced facet arthrosis with trace facet effusions. Severe central canal stenosis with AP dimension of the thecal sac measuring 5 mm. There is at least moderate narrowing of the lateral recesses. Mild to moderate right with moderate left foraminal stenosis. L3-L4: Mild to moderate posterior intervertebral disc space narrowing and spondylotic spurring with circumferential annular disc bulge. Ligamentum flavum thickening with advanced facet arthrosis and small facet effusions. Severe central canal stenosis with AP dimension of the thecal sac measuring 3 mm. Severe narrowing of the lateral recesses. Mild to moderate right with moderate to severe left foraminal stenosis L4-L5: Mild intervertebral disc space narrowing and spondylotic spurring with degenerative related to 3 mm anterolisthesis. Advanced facet arthrosis. The central canal is patent. There is at least mild narrowing of the lateral recesses. Mild bilateral foraminal stenosis. L5-S1: Transitional lumbosacral anatomy as above. No central canal or neural foraminal stenosis. IMPRESSION: 1. At L1-L2, there is a posterior annular fissure with right foraminal/right far lateral disc protrusion causing moderate to severe right foraminal stenosis with reactive edema extending into the right neural foramen. 2. Severe central canal stenosis at L2-L3 and L3-L4 with multilevel neural foraminal narrowing as above. 3. Severe intervertebral disc space narrowing at T12-L1. 4. Transitional lumbosacral anatomy redemonstrated. ACT 112: Negative or not required by law. The above report was generated using voice recognition software. It may contain grammatical, syntax or spelling errors. Dictated: 01/27/2024 1:05 PM Transcribed: 01/27/2024 1:30 PM Fanny [id number] DALTON_Barron [id number] Electronically signed by: Chaz Bello M.D. 01/27/2024 3:21 PM Medications Administered Current Inpatient Medications Acetaminophen (Acetaminophen 325 Mg Tab) 650 mg PO Q4H PRN PRN Reason: Pain or Fever Stop: 02/25/24 16:11 Last Admin: 01/28/24 09:17 Dose: 650 mg Al Hydrox/Mg Hydrox/Simethicone (Aluminum/Magnesium Susp 30 Ml Udc) 15 ml PO Q4H PRN PRN Reason: Dyspepsia Stop: 02/25/24 16:11 Brimonidine Tartrate (Brimonidine Tartrate-P 0.15% 5 Ml Btl) 1 drops OPB BID CHANDNI Stop: 02/25/24 20:59 Last Admin: 01/28/24 09:18 Dose: 1 drops Cyclobenzaprine HCl (Cyclobenzaprine Hcl 5 Mg Tab) [address] [facility] Stop: 02/25/24 16:29 Last Admin: 01/28/24 09:18 Dose: 5 mg Dorzolamide/Timolol (Dorzolamide/Timolol 22.3/6.8mg/Ml 10 Ml Btl) [address] [facility] Stop: 02/25/24 20:59 Last Admin: 01/28/24 09:19 Dose: 1 drops Heparin Sodium (Porcine) (Heparin Sod 5,000 Unit/0.5 Ml Vial) 5,[address] [facility] Stop: 02/25/24 21:59 Last Admin: 01/28/24 06:19 Dose: Not Given Hydromorphone HCl (Hydromorphone Inj 0.5 Mg/0.5 Ml Syr) 0.25 mg IV Q6H PRN PRN Reason: Severe Pain (Scale 7, 8, 9,10) Stop: 02/09/24 16:11 Acetaminophen (Ofirmev) 1,000 mg in 100 mls @ 400 mls/hr IV Q8H [facility] Stop: 01/29/24 20:59 Last Infusion: 01/28/24 04:55 Dose: Infused Pantoprazole Sodium 40 mg/ (Syringe) 10 mls @ 5 mls/min IV DAILY@1100 [facility] Stop: 02/25/24 16:29 Last Admin: 01/28/24 09:18 Dose: 5 mls/min Sodium Chloride (Nss) 1,000 mls @ 80 mls/hr IV .[id number] [facility] Stop: 01/28/24 20:29 Last Admin: 01/28/24 09:21 Dose: 80 mls/hr Ketorolac Tromethamine (Ketorolac Tromethamine 15 Mg/Ml Vial) 15 mg IV Q6H PRN PRN Reason: Moderate Pain (Scale 4, 5, 6) Stop: 01/31/24 16:11 Last Admin: 01/27/24 16:20 Dose: 15 mg Lidocaine (Lidocaine 5% 1 Patch) [address] [facility] Stop: 02/25/24 16:29 Last Admin: 01/28/24 09:18 Dose: Not Given Lisinopril (Lisinopril 20 Mg Tab) [address] [facility] Stop: 02/25/24 20:59 Last Admin: 01/27/24 21:23 Dose: 20 mg Magnesium Hydroxide (Magnesium Hydroxide Susp 30 Ml Udc) 30 ml PO Q12H PRN PRN Reason: Constipation Stop: 02/25/24 16:11 Miscellaneous (Remove Lidoderm Patch) 1 each N/A DAILY@2100 [facility]AND[facility] Stop: 02/25/24 20:59 Last Admin: 01/27/24 21:25 Dose: Not Given Ondansetron HCl (Ondansetron Inj 2 Mg/Ml 2 Ml Vial) 4 mg IV Q6H PRN PRN Reason: Nausea Stop: 02/25/24 16:11 Polyethylene Glycol (Polyethylene (Miralax) 17 Gm Pack) 17 gm PO DAILY PRN PRN Reason: Constipation Stop: 02/25/24 16:11 ECG Additional Comments: I have independently reviewed and interpreted patient's admitting EKG which revealed: 68 bpm, NSR, no st or t wave change
[2024-01-28] MEDS ORDERED: ROCURONIUM BROMIDE 10 MG/ML 5 ML VIAL IV ONE ×2 (10:42→12:46)
[2024-01-28] MEDS ORDERED: ONDANSETRON INJ 2 MG/ML 2 ML VIAL ONE (10:42)
[2024-01-28] MEDS ORDERED: DEXAMETHASONE SOD INJ 4 MG/ML VIAL ONE (10:42)
[2024-01-28] MEDS ORDERED: PROPOFOL IV EMULSION 10 MG/ML 20 ML VIAL IV ONE (10:42)
[2024-01-28] MEDS ORDERED: LIDOCAINE 2% 2 ML VIAL/AMP(20MG/ML) INFIL ONE (10:42)
[2024-01-28] MEDS ORDERED: MIDAZOLAM HCL 1 MG/ML 2ML VIAL ONE (10:43)
[2024-01-28] MEDS ORDERED: fentaNYL citrate PF 100 MCG/2 ML VIAL ONE ×2 (10:43→13:01)
--- NOTE | 2024-01-28 11:18 | Nephrology Consultation ---
Date of Consultation January 28, 2024 Assessment & Plan (1) Acute hyponatremia: Based on her outpatient labs review for the last few years she has had few slightly low sodium in the past. in fact her outpatient blood work from October 2023 did show sodium 132. sodium on admission this time was 132 but since then dropped to 126 and now slightly up again to 129. she appears euvolemic. serum osmolarity was 265 so this is a true hyponatremia. urine osmolarity inappropriately high at 475 and urine sodium 117. 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 fortunately sodium did go up from 126 and is now 129. perioperative period is specially problematic with hyponatremia in susceptible patient. she is currently NPO and getting normal saline. Continue same for now. once she is allowed to eat would encourage solid food with high protein. gentle fluid restriction of 1500 mL per day for now. do BMP later tonight after the surgery and then again in the morning. will follow patient. History of Present Illness Reason for Consultation: Hyponatremia Attending Physician: Maryanne Gudino MD History of Present Illness 78/M with h/o Occasional Low na 132 as of outpt. Also has HTN, GERD, CHANEL, solitary rectal ulcer syndrome, cervical disc disorder with myopathy, glaucoma, history of DVT/PE and obesity who presented to ED 3 days ago with acute on chronic back pain. na has been slightly low 129--132. Currently NPO and getting Spine Surgery later today. was on Liquid diet last few days. on NS at 80/hr. Patient's daughter, son and [id number] are at bedside also help elicit history. She was also having significant nausea and vomiting due to the pain. She has been unable to keep anything down for many days. Due to nausea and vomiting CT scan of abdomen pelvis was performed which was without significant abnormality. urine osm 475 and urine na 117. Not on Diuretics before. was on some NSAIDS outpt and inpt. ROS--back pain, nausea. 12 systems reviewed and negative otherwise Physical examination elderly white female who is not in any respiratory distress. Vital signs reviewed. blood pressure is high at 186 x 116 97% on room air pulse is 76 mucous membrane is moist neck is supple and no JVD chest bilateral clear to auscultation CVS S1 and S2 regular no murmur rub or gallop heard abdomen is soft nontender extremity without edema neuropsych--- she appears anxious as she is about to go for spine surgery Allergies Allergy/AdvReac Type Severity Reaction Status Date / Time erythromycin base Allergy Intermediate RASH Verified 01/28/24 10:55 Opioids - Morphine Analogues Allergy Intermediate increased Verified 01/28/24 10:55 BP, hives oxycodone [From Percocet] Allergy Intermediate INCREASES Verified 01/28/24 10:55 B/P, HIVES morphine AdvReac Severe SEVERE Verified 01/28/24 10:55 NAUSEA AND VOMITING prednisone AdvReac Severe "STEROIDS" Verified 01/28/24 10:55 = "EXTREME HEADACHE AND HEART PALPITATIONS" codeine [From [facility]] AdvReac Mild N/V Verified 01/28/24 10:55 guaifenesin AdvReac Mild N/V Verified 01/28/24 10:55 [From [facility]] tramadol AdvReac Mild nausea and Verified 01/28/24 10:55 vomit Home Medications Medication Instructions Recorded Confirmed Type aspirin 81 mg tablet,delayed 81 mg PO QAM 04/01/22 01/26/24 History release brimonidine 0.15 % eye drops 1 drp OPB BID 04/01/22 01/26/24 History calcium citrate 315 mg 1 tab PO QAM 04/01/22 01/26/24 History calcium-vitamin D3 6.25 mcg (250 unit) tablet (Citracal + Vitamin D Maximum) dorzolamide 22.3 mg-timolol 6.8 1 drp OPB BID 04/01/22 01/26/24 History mg/mL eye drops esomeprazole magnesium 20 mg 20 mg PO QAM 04/01/22 01/26/24 History capsule,delayed release (Nexium) krill oil 500 mg capsule 500 mg PO BID 04/01/22 01/26/24 History lisinopril 20 mg tablet 20 mg PO QPM 04/01/22 01/26/24 History magnesium chloride 71.5 mg 71.5 mg PO QPM 04/01/22 01/26/24 History (magnesium chloride) tablet,delayed release (Slow-Mag) betamethasone dipropionate 0.05 % 1 applic topical BID PRN Rash 01/25/24 01/26/24 History lotion lidocaine 5 % topical patch 1 patch topical DAILY PRN pain #15 01/25/24 01/26/24 Rx ea meloxicam 15 mg tablet 15 mg PO QAM 01/25/24 01/26/24 History Patient History Medical History Lumbar disc herniation with radiculopathy Right L1-2 right foraminal/right far lateral disc protrusion or MRI 01/26/2024 CHANEL on CPAP Hypertension GERD (gastroesophageal reflux disease) Surgical History Hx of unilateral oophorectomy R 2/2 cyst Hx of appendectomy Hx of colonoscopy Hx of esophagogastroduodenoscopy Hx of breast biopsy H/O neck surgery Family History Other Breast cancer Cancer Coronary heart disease Social History Smoking Status: Never smoker Hx Alcohol Use: No Hx Substance Use: No Preferred Language: [place] Communication Ability: Effective Ui Programmer Required: No Beliefs That Will Affect Care: None Current Living Situation: Alone Other Information That Helps Us Care for You: No Feels Safe at Home: Yes Assistive Devices: Stair Lift Results & Data Vital Signs (Past 12 Hours) Vital Signs Temp Pulse Pulse Resp BP Pulse Ox O2 Del Method 01/28/24 10:56 37.3 C 76 20 186/116 H 97 Room Air 01/28/24 07:57 36.8 C 67 16 159/82 H 96 Room Air 01/28/24 07:17 66 01/28/24 03:54 36.9 C 67 18 151/79 H 95 Room Air Laboratory Results reviewed. sodium today 129 urine Osmo 475 urine sodium 117 serum osmolarity 265
[2024-01-28] MEDS ORDERED: fentaNYL citrate PF 100 MCG/2 ML VIAL IV PRN ×2 (11:38→11:43)
[2024-01-28] MEDS ORDERED: ONDANSETRON INJ 2 MG/ML 2 ML VIAL IV PRN ×3 (11:38→14:46)
[2024-01-28] MEDS ORDERED: ePHEDrine sulfate 50 MG/ML AMP IV PRN ×2 (11:38→11:43)
[2024-01-28] MEDS ORDERED: ATROPINE SULFATE 0.1 MG/ML 10ML SYR IV PRN ×2 (11:38→11:43)
--- NOTE | 2024-01-28 11:38 | Anesthesiology Consultation ---
Date of Service January 28, 2024 Assessment & Plan (1) Encounter for pre-operative examination: Chart Review Chart Review: Acceptable Risk for Surgery and Patient NOT seen in Pre Admission Testing Consults Requested none History Surgery Operation Date: 01/28/24 07:50 Proposed Procedures p L1-L2 Decompression and Fusion - Mike Castro, Height/Weight Height: 4 ft 10 in Weight: 76.8 kg Allergies Allergy/AdvReac Type Severity Reaction Status Date / Time erythromycin base Allergy Intermediate RASH Verified 01/28/24 10:55 Opioids - Morphine Analogues Allergy Intermediate increased Verified 01/28/24 10:55 BP, hives oxycodone [From Percocet] Allergy Intermediate INCREASES Verified 01/28/24 10:55 B/P, HIVES morphine AdvReac Severe SEVERE Verified 01/28/24 10:55 NAUSEA AND VOMITING prednisone AdvReac Severe "STEROIDS" Verified 01/28/24 10:55 = "EXTREME HEADACHE AND HEART PALPITATIONS" codeine [From [facility]] AdvReac Mild N/V Verified 01/28/24 10:55 guaifenesin AdvReac Mild N/V Verified 01/28/24 10:55 [From [facility]] tramadol AdvReac Mild nausea and Verified 01/28/24 10:55 vomit Medications Home Medications Medication Instructions Recorded Confirmed Last Taken aspirin 81 mg tablet,delayed 81 mg PO QAM 04/01/22 01/26/24 04/01/22 release brimonidine 0.15 % eye drops 1 drp OPB BID 04/01/22 01/26/24 04/01/22 08:00 calcium citrate 315 mg 1 tab PO QAM 04/01/22 01/26/24 04/01/22 calcium-vitamin D3 6.25 mcg (250 unit) tablet (Citracal + Vitamin D Maximum) dorzolamide 22.3 mg-timolol 6.8 1 drp OPB BID 04/01/22 01/26/24 04/01/22 08:00 mg/mL eye drops esomeprazole magnesium 20 mg 20 mg PO QAM 04/01/22 01/26/24 04/01/22 capsule,delayed release (Nexium) krill oil 500 mg capsule 500 mg PO BID 04/01/22 01/26/24 04/01/22 08:00 lisinopril 20 mg tablet 20 mg PO QPM 04/01/22 01/26/24 03/31/22 magnesium chloride 71.5 mg 71.5 mg PO QPM 04/01/22 01/26/24 03/31/22 (magnesium chloride) tablet,delayed release (Slow-Mag) betamethasone dipropionate 0.05 % 1 applic topical BID PRN Rash 01/25/24 01/26/24 Unknown lotion lidocaine 5 % topical patch 1 patch topical DAILY PRN pain #15 01/25/24 01/26/24 Unknown ea meloxicam 15 mg tablet 15 mg PO QAM 01/25/24 01/26/24 Unknown Active Medications Generic Name Dose Route Start Last Admin Trade Name Freq PRN Reason Stop Dose Admin Acetaminophen 650 mg 01/26/24 16:12 01/28/24 09:17 Acetaminophen 325 Mg Tab PO 02/25/24 16:11 650 mg Q4H PRN Administration Pain or Fever Brimonidine Tartrate 1 drops 01/26/24 21:00 01/28/24 09:18 Brimonidine Tartrate-P 0.15% 5 Ml Btl OPB 02/25/24 20:59 1 drops BID CHANDNI Administration Cyclobenzaprine HCl 5 mg 01/26/24 16:30 01/28/24 09:18 Cyclobenzaprine Hcl 5 Mg Tab PO 02/25/24 16:29 5 mg TID CHANDNI Administration Dorzolamide/Timolol 1 drops 01/26/24 21:00 01/28/24 09:19 Dorzolamide/Timolol 22.3/6.8mg/Ml 10 Ml Btl OPB 02/25/24 20:59 1 drops BID CHANDNI Administration Heparin Sodium (Porcine) 5,000 units 01/26/24 22:00 01/28/24 06:19 Heparin Sod 5,000 Unit/0.5 Ml Vial SQ 02/25/24 21:59 Not Given Q8 CHANDNI Acetaminophen 1,000 mg in 100 mls @ 400 mls/hr 01/26/24 21:00 01/28/24 04:55 Ofirmev IV 01/29/24 20:59 Infused Q8H [facility] Infusion Pantoprazole Sodium 40 mg/ 10 mls @ 5 mls/min 01/26/24 16:30 01/28/24 09:18 Syringe IV 02/25/24 16:29 5 mls/min DAILY@1100 CHAND[facility] Administration Sodium Chloride 1,000 mls @ 80 mls/hr 01/28/24 08:00 01/28/24 09:21 Nss IV 01/28/24 20:29 80 mls/hr .[id number] CHAND[facility] Administration Ketorolac Tromethamine 15 mg 01/26/24 16:12 01/27/24 16:20 Ketorolac Tromethamine 15 Mg/Ml Vial IV 01/31/24 16:11 15 mg Q6H PRN Administration Moderate Pain (Scale 4, 5, 6) Lidocaine 1 patch 01/26/24 16:30 01/28/24 09:18 Lidocaine 5% 1 Patch TD 02/25/24 16:29 Not Given QAM CHANDNI Lisinopril 20 mg 01/26/24 21:00 01/27/24 21:23 Lisinopril 20 Mg Tab PO 02/25/24 20:59 20 mg QPM CHANDNI Administration Miscellaneous 1 each 01/26/24 21:00 01/27/24 21:25 Remove Lidoderm Patch N/A 02/25/24 20:59 Not Given DAILY@2100 CHAND[facility] NPO Date Last Intake of Fluids: 01/28/24 Time Last Intake of Fluids: 09:17 Last Intake of Fluids Comment: sip water with meds Date Last Intake of Solids: 01/24/24 Time Last Intake of Solids: 12:00 Past Medical History Medical History Lumbar disc herniation with radiculopathy Right L1-2 right foraminal/right far lateral disc protrusion or MRI 01/26/2024 CHANEL on CPAP Hypertension GERD (gastroesophageal reflux disease) Past Family History Family History Other Breast cancer Cancer Coronary heart disease Past Surgical History Surgical History Hx of unilateral oophorectomy R 2/2 cyst Hx of appendectomy Hx of colonoscopy Hx of esophagogastroduodenoscopy Hx of breast biopsy H/O neck surgery Social History Smoking Status: Never smoker Hx Alcohol Use: No Hx Substance Use: No Physical Exam Vital Signs Last Vital Signs Temp 99.1 F 01/28/24 10:56 Pulse 76 01/28/24 10:56 Resp 20 01/28/24 10:56 BP 186/116 H 01/28/24 10:56 Pulse Ox 97 01/28/24 10:56 O2 Del Method Room Air 01/28/24 10:56 Testing Laboratory Results 01/27/24 04:39 01/28/24 07:01 Hemoglobin A1c 5.7 % (4.5-5.6) H 01/27/24 04:39 Urine Color Yellow 01/26/24 20:30 Urine Appearance Clear (Clear) 01/26/24 20:30 Urine pH 6.5 (4.5-7.5) 01/26/24 20:30 Ur Specific Delta 1.016 (1.000-1.030) 01/26/24 20:30 Urine Protein Negative (Negative) 01/26/24 20:30 Urine Glucose (UA) Negative (Negative) 01/26/24 20:30 Urine Ketones 1+ (Negative) H 01/26/24 20:30 Urine Nitrite Negative (Negative) 01/26/24 20:30 Ur Leukocyte Esterase Negative (Negative) 01/26/24 20:30 Electrocardiogram Date: 01/26/24 Findings: + NSR @
[2024-01-28] MEDS ORDERED: ceFAZolin 2000MG 2,000 MG/15 ML SYR IV ONE (11:42)
[2024-01-28] MEDS: ceFAZolin 2,000 MG/15 ML IV PUSH IV ONE (12:09)
[2024-01-28] MEDS: BUPIVACAINE/EPINEPHRINE 0.25% 1:200,000 30 ML VIAL ONE (12:33)
[2024-01-28] MEDS: ceFAZolin 330 MG/ML 1 GM VIAL ONE (13:19)
[2024-01-28] MEDS: FLOSEAL HEMOSTATIC MATRIX 10ML TOP ONE (13:21)
[2024-01-28] MEDS ORDERED: SUGAMMADEX SODIUM 200 MG/2 ML VIAL IV ONE (13:28)
--- NOTE | 2024-01-28 13:38 | Operative Report ---
Post Operative Report Pre & Post Diagnosis Operation Date: 01/28/24 07:50 Pre-Op Diagnosis: Lumbar disc herniation radiculopathy L1-L2 Post-Op Diagnosis: Same I identified the patient and participated in the time-out.: Yes Procedure Operation Date: 01/28/24 07:50 Actual Procedures #1 lumbar decompression with bilateral medial facetectomies and foraminotomies T12-L1 L1-L2. #2 posterior spinal fusion L1-L2. #3 placed posterior instrumentation L1-L2. #4 interbody fusion L1-L2. #5 placement Spira 12 x 26 mm at L1-L2. #6 placement locally harvested morselized autograft and posterior gutters per #7 placement infuse collagen sponge, with Koros in the posterior lateral gutters and Morpheus bone graft interbody space. Surgeon Mike Castro, Pedodontist Joann Gifford Estimated Blood Loss 50 Findings Consistent with Post-Op Diagnosis Specimens None Indications This is a 78-year-old female presents with severe right leg pain and inability to ambulate. She has evidence of a massive foraminal disc herniation is here for surgical invention. Description of Procedure Patient was met with identified informed consent obtained. Patient was then taken to the operative suite underwent patient placed in a prone position on the Elie table atop the Delmar frame. All bony promises well-padded eyes inspected to ensure no external pressure placed upon the. This point the lumbar spine was prepped and draped in a sterile fashion. Sharp dissection with assistance of Bovie cautery from down to and exposing the lamina transverse processes of L1 and L2. Then performed complete laminectomy of L1 including bilaterally facetectomies and foraminotomies followed by partial laminectomy of T12 including bilateral medial facetectomies and foraminotomies addressing all central stenosis. Then performed a complete facetectomy L1-L2 on the right exposing the exiting nerve root and identifying massive amounts disc material directly under the exiting root extending extraforaminal view. All fragments were removed freeing up the root in its entirety. Pedicle screws were then p laced in L1-L2 bilaterally with assistance of fluoroscopy and the purposes chetan placed. By way of transforaminal approach on the right a complete discectomy of L1-L2 was performed endplates guided to subcortical bleeding bone and a 12 x 26 mm Spira cage filled with Morpheus bone graft tapped in position. The rods were then compressed locked in final position bilaterally. The transverse processes of L1-L2 burred to subcortical bleeding bone. Infuse collagen sponge, with Koros bone graft local autograft placed in posterior gutters. 15 round JUNIOR drain inserted. The incision was then closed with 1 Vicryl the fascia 2-0 Vicryl subcutaneously and 4 Monocryl for final skin closure. Steri-Strips sterile dressing placed. Patient waken taken to PACU stable condition. Please note spinal cord monitoring was utilized at the procedure no changes noted. Lastly Joann Gifford was present at the entire surgery and while the patient positioning complex portion of the surgery and final skin closure. I attest to the content of the Intraoperative Record and any orders documented therein. Any exceptions are noted below.
--- NOTE | 2024-01-28 13:38 | Fluoroscopy Report ---
FL lumbar spine 2-3V CLINICAL HISTORY: L1-L2 DECOMP/FUSION COMPARISON STUDY: MRI 01/27/2024 FLUOROSCOPY TIME: 21.8 seconds FLUOROSCOPY IMAGES: 2 EXPOSURE DOSE: 13.32 mGy FINDINGS: Posterior interbody chetan and screw fusion hardware with discectomy noted at what is labeled the L1-L2 level. The hardware appears intact. No unexpected opaque foreign bodies. Severe T12-L1 inte rvertebral disc space narrowing redemonstrated. Note that the images were submitted following complet ion of the surgery. IMPRESSION: Fluoroscopic assistance as above. ACT 112: Negative or not required by law. Electronically signed by: Chaz Bello M.D. 01/28/2024 1:37 PM
--- NOTE | 2024-01-28 14:32 | Anesthesiology Progress Note ---
Date of Service January 28, 2024 Anesthesia Post Procedure Vital Signs Vital Signs: Temp Pulse Pulse Resp BP Pulse Ox O2 Del Method 01/28/24 14:15 64 13 179/89 H 96 Oxymask 01/28/24 14:05 60 13 188/98 H 99 Oxymask 01/28/24 13:55 36.9 C 63 12 206/88 H 100 Oxymask 01/28/24 13:49 36.9 C 70 12 170/81 H 99 Oxymask 01/28/24 10:56 37.3 C 76 20 186/116 H 97 Room Air 01/28/24 07:57 36.8 C 67 16 159/82 H 96 Room Air 01/28/24 07:17 66 01/28/24 03:54 36.9 C 67 18 151/79 H 95 Room Air 01/27/24 23:14 36.8 C 76 18 138/76 98 Room Air 01/27/24 22:23 73 01/27/24 19:52 36.8 C 69 18 149/78 H 95 Room Air 01/27/24 16:10 70 01/27/24 15:33 36.6 C 64 20 171/85 H 97 Room Air O2 Flow Rate 01/28/24 14:15 3 01/28/24 14:05 3 01/28/24 13:55 3 01/28/24 13:49 5 01/28/24 10:56 01/28/24 07:57 01/28/24 07:17 01/28/24 03:54 01/27/24 23:14 01/27/24 22:23 01/27/24 19:52 01/27/24 16:10 01/27/24 15:33 Transfer of Care Handoff Completed per policy Notes Mental Status: alert / awake / arousable and participated in evaluation Nausea / Vomiting: adequately controlled Pain: adequately controlled Airway Patency, RR, SpO2: stable & adequate BP & HR: stable & adequate Hydration State: stable & adequate Anesthetic Complications: no major complications apparent and Pt Satisfied with anesthetic care
[2024-01-28] MEDS ORDERED: SOD PHOSPHATE/SOD BIPHOSPHATE ENEMA 132 ML BTL PR PRN (14:46)
[2024-01-28] MEDS ORDERED: DO NOT ADMINISTER PNEUMOCOCCAL VACCINE PRN (14:46)
[2024-01-28] MEDS ORDERED: LORazepam 0.5 MG in SYRINGE 0.25 ML IV PRN (14:46)
[2024-01-28] MEDS ORDERED: LORazepam 0.5 MG TAB PO PRN (14:46)
[2024-01-28] MEDS ORDERED: MAGNESIUM HYDROXIDE SUSP 30 ML UDC PO PRN (14:46)
[2024-01-28] MEDS ORDERED: diphenhydrAMINE Capsule 25 MG CAP PO PRN (14:46)
[2024-01-28] MEDS ORDERED: hydrOXYzine HCl 25 MG TAB PO PRN (14:46)
[2024-01-28] MEDS ORDERED: ALUMINUM/MAGNESIUM SUSP 30 ML UDC PO PRN (14:46)
[2024-01-28] MEDS ORDERED: DO NOT ADMINISTER FLU VACCINE PRN (14:46)
[2024-01-28] MEDS ORDERED: ONDANSETRON 4 MG OD TAB PO PRN (14:46)
[2024-01-28] MEDS ORDERED: PROMETHAZINE HCL 12.5 MG in SODIUM CHLORIDE 0.9% 50 ML IV PRN (14:46)
[2024-01-28] MEDS ORDERED: METOCLOPRAMIDE HCL INJ 5 MG/ML 2 ML VIAL IV PRN (14:46)
[2024-01-28] MEDS ORDERED: NALOXONE HCL 0.4 MG/1 ML VIAL/CARP IV PRN (14:46)
[2024-01-28] MEDS ORDERED: bisacodyL 10 MG SUPP PR PRN (14:46)
[2024-01-28] MEDS ORDERED: HYDROmorphone INJ 0.5 MG/0.5 ML SYR IV PRN (14:46)
[2024-01-28] MEDS ORDERED: HYDROmorphone INJ 1 MG/ML SYRINGE IV PRN (14:46)
[2024-01-28] MEDS: LACTATED RINGER'S 1,000 ML IV SCH (15:55)
[2024-01-28] MEDS: KETOROLAC TROMETHAMINE 15 MG/ML VIAL IV SCH (15:57)
[2024-01-28 16:57] LABS: BUN Creatinine Ratio 15.4 (10-20); Calcium 8.8 mg/dl (8.6-10.3); Creatinine Clr Calc Pharmacy 52.7 ml/min; Est GFR (Non-African American) 73.3 ml/min
[2024-01-28] MEDS: ACETAMINOPHEN 1,000 MG/100 ML VIAL IV PRN (18:25)
[2024-01-28] MEDS: DOCUSATE SODIUM/SENNA 50/8.6MG TAB PO SCH (21:40)
[2024-01-28] MEDS: ceFAZolin 2000MG 2,000 MG/15 ML SYR IV SCH (21:44)
[2024-01-28 21:48] LABS: BUN Creatinine Ratio 18.9 (10-20); Calcium 8.7 mg/dl (8.6-10.3); Creatinine Clr Calc Pharmacy 55.5 ml/min; Est GFR (African American) 90.6 ml/min; Est GFR (Non-African American) 78.1 ml/min; Potassium 3.9 mmol/L (3.5-5.1)
[2024-01-29] MEDS: POLYETHYLENE (MIRALAX) 17 GM PACK PO SCH (05:24)
[2024-01-29 06:31] LABS: Basophils # (auto) 0.01 K/uL (0.00-0.20); Basophils % (auto) 0.1 %; Hematocrit (blood only) 29.9 % (37.0-47.0); Hemoglobin 10.4 g/dl (12.0-16.0); Immature Granulocytes # (auto) 0.03 K/uL (0.01-0.20); Immature Granulocytes % (auto) 0.4 %; Lymphocytes # (auto) 1.15 K/uL (1.20-3.40); Lymphocytes % (auto) 15.1 %; Mean Corpuscular Hemoglobin 29.1 pg (25.0-34.0); Mean Corpuscular Hgb Conc 34.8 g/dL (32.0-36.0); Mean Corpuscular Volume 83.8 fL (80.0-100.0); Mean Platelet Volume 9.6 fL (9.4-12.4); Monocytes # (auto) 0.51 K/uL (0.11-0.59); Monocytes % (auto) 6.7 %; Neutrophils # (auto) 5.91 K/uL (1.40-6.50); Neutrophils % (auto) 77.7 %; Platelet Count 291 K/uL (130-400); RDW Coefficient of Variation 12.5 % (11.5-14.5); RDW Standard Deviation 38.5 fL (36.4-46.3); Red Blood Count 3.57 M/uL (4.20-5.40); White Blood Count 7.61 K/ul (4.8-10.8)
[2024-01-29 07:41] LABS: BUN Creatinine Ratio 19.2 (10-20); Calcium 8.3 mg/dl (8.6-10.3); Creatinine Clr Calc Pharmacy 52.7 ml/min; Est GFR (Non-African American) 73.3 ml/min; Magnesium 1.6 mg/dl (1.7-2.4); Potassium 3.8 mmol/L (3.5-5.1)
[2024-01-29] MEDS: dexAMETHasone 6 MG in SYRINGE 0 ML IV SCH (09:00)
--- NOTE | 2024-01-29 10:19 | Nephrology Progress Note ---
Date of Service January 29, 2024 Assessment & Plan Admission and Anticipated Discharge Date Admission Date: January 26, 2024 Subjective Assessment & Plan (1) Acute hyponatremia: Based on her outpatient labs review for the last few years she has had few slightly low sodium in the past. in fact her outpatient blood work from October 2023 did show sodium 132. sodium on admission this time was 132 but since then dropped to 126 and now slightly up again to 129. she appears euvolemic. serum osmolarity was 265 so this is a true hyponatremia. urine osmolarity inappropriately high at 475 and urine sodium 117. 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 this AM was 129. NO need of NS now. Now she is allowed to eat ---would encourage solid food with high protein. gentle fluid restriction of 1500 mL per day for now. She can still be discharged from na standpoint--stable around 130 range f/u Nephrology within 1 week with BMP. S---feels fine. relieved that surgery went fine. Physical examination elderly white female who is not in any respiratory distress. Vital signs reviewed. blood pressure is high at 186 x 116 97% on room air pulse is 76 mucous membrane is moist neck is supple and no JVD chest bilateral clear to auscultation CVS S1 and S2 regular no murmur rub or gallop heard abdomen is soft nontender extremity without edema Results & Data Vital Signs (Past 12 Hours) Vital Signs Temp Pulse Resp BP BP Pulse Ox O2 Del Method 01/29/24 07:11 36.4 C L 82 18 157/73 H 97 Room Air 01/29/24 04:08 36.3 C L 80 18 118/67 93 Room Air 01/28/24 23:39 36.3 C L 69 18 125/70 95 Room Air
--- NOTE | 2024-01-29 12:02 | Orthopedic Progress Note ---
Date of Service January 29, 2024 Assessment & Plan (1) Lumbar disc herniation with radiculopathy: Plan: At this time continue physical therapy monitor her JUNIOR output anticipate discharge home the next day or so. Admission and Anticipated Discharge Date Admission Date: January 26, 2024 Subjective Back pain is controlled leg symptoms markedly improved Physical Exam Physical Exam: Patient is in the chair at the bedside. She is comfortable. Is good strength testing. Results & Data Vital Signs (Past 12 Hours) Vital Signs Temp Pulse Resp BP Pulse Ox O2 Del Method 01/29/24 07:11 36.4 C L 82 18 157/73 H 97 Room Air 01/29/24 04:08 36.3 C L 80 18 118/67 93 Room Air Queries Orthopedic Spine Obesity: Yes
--- NOTE | 2024-01-29 12:22 | Hospitalist Progress Note ---
Date of Service January 29, 2024 Assessment & Plan (1) Acute exacerbation of chronic low back pain: (2) Spondylolisthesis at L3-L4 level: (3) Bulging lumbar disc: (4) Lumbar radiculopathy: (5) Chronic hyponatremia: (6) Hypertension: (7) CHANEL on CPAP: (8) Hx of deep venous thrombosis: Plan This is a 78-year-old female who has a significant past medical history of HTN, GERD, CHANEL, solitary rectal ulcer syndrome, cervical disc disorder with myopathy, glaucoma, history of DVT/PE and obesity who presents to ED secondary to acute on chronic back pain. Acute on Chronic Back Pain --CT Lumbar spine reviewed from 01/24 showed Severe canal narrowing at L3-L4 due to disc bulge, spondylolisthesis and advanced facet hypertrophy noted. Also moderate to severe canal narrowing at L2-L3. Schedule APAP, cyclobenazaprine Pt with significant allergies: prn IV dilaudid for severe pain, IV toradol for mod pain Heat, Lidocaine patch Pt with significant N/V 2/2 pain, will place most meds as IV for now until better tolerating PO consult pain management for assistance with pain control Appreciate orthospine input and recommendation -MRI of the lumbar spine showed-severe canal stenosis and nerve root compression as mentioned in the report -s/p lumbar decompression and fusion on 01/27, monitor H/H postop, pain control as above Chronic Hyponatremia obtain sodium studies suspect 2/2 SIADH in setting of nausea due to pain poor intake over last few days despite fluid, sodium remains low Neprhology consuled, appreciate recs -SIADH -encourage solid food with high protein. -gentle fluid restriction of 1500 mL per day for now. - can still be discharged from na standpoint--stable around 130 range -f/u Nephrology within 1 week with BMP. GERD IV PPI initially when not tolerating PO On high dose steroids, po pantoprazole 40mg BID ordered while on steroids Has PRN famotidine ordered as well. Continue to monitor CHANEL Cpap at HS HTN chronic, stable continue lisinopril BP elevated 2/2 pain continue to monitor Obesity, BMI 34.7 encourage diet/lifestyle changes when physically able DVT ppx/Hx of DVT: per ortho spine post op FULL CODE Dispo: PT/OT per ortho spine Admission and Anticipated Discharge Date Admission Date: January 26, 2024 Subjective pt was seen while sitting in chair at bedside. Sister visiting at the time. denied acute concerns. Review of Systems Review of Systems: All systems reviewed & are unremarkable except as noted in Subjective Physical Exam Physical Exam: General: Alert, oriented. No acute distress Skin: No noted rashes or bruises Psych: Appropriate mood and affect Neuro: difficulty with movements postop HEENT: NC/AT CV: RRR Resp: Breath sounds clear bilaterally, no increased effort of breathing. Abdomen: Soft, nontender, nondistended. Extremities: No edema in lower extremities bilaterally. Results & Data Results & Data Vital Signs (Past 12 Hours) Vital Signs Temp Pulse Resp BP Pulse Ox O2 Del Method 01/29/24 07:11 36.4 C L 82 18 157/73 H 97 Room Air 01/29/24 04:08 36.3 C L 80 18 118/67 93 Room Air
[2024-01-29] MEDS: ACETAMINOPHEN 500 MG TAB PO PRN (12:48)
[2024-01-29] MEDS: FAMOTIDINE 20 MG TAB PO PRN (15:29)
[2024-01-29] MEDS: MAGNESIUM OXIDE 400 MG TAB PO SCH (21:33)
[2024-01-29] MEDS: PANTOprazole 40 MG TAB PO SCH (21:33)
--- NOTE | 2024-01-30 08:11 | Orthopedic Progress Note ---
Date of Service January 30, 2024 Assessment & Plan (1) Lumbar disc herniation with radiculopathy: Plan: Patient is doing quite well. JUNIOR drain decreasing appropriately. Her pain is well-controlled. She would like to return home. She is stable from an orthopedic standpoint. Will have her follow-up in the office in 2 weeks. Admission and Anticipated Discharge Date Admission Date: January 26, 2024 Subjective Back pain is controlled leg symptoms markedly improved. Physical Exam Physical Exam: Patient is in the chair at the bedside. She is comfortable. Is good strength testing. Results & Data Vital Signs (Past 12 Hours) Vital Signs Temp Pulse Resp BP Pulse Ox O2 Del Method 01/30/24 06:20 37.1 C 72 20 155/68 H 97 Room Air 01/30/24 01:58 36.9 C 78 20 137/72 97 Room Air 01/29/24 23:00 36.8 C 79 20 112/66 96 Room Air Queries Orthopedic Spine Obesity: Yes
[2024-01-30] MEDS: MAGNESIUM SULFATE / D5W 1 GM/100 ML BAG IV SCH (11:35)
--- NOTE | 2024-01-30 13:30 | Hospitalist Progress Note ---
Date of Service January 30, 2024 Assessment & Plan (1) Acute exacerbation of chronic low back pain: (2) Spondylolisthesis at L3-L4 level: (3) Bulging lumbar disc: (4) Lumbar radiculopathy: (5) Chronic hyponatremia: (6) Hypertension: (7) CHANEL on CPAP: (8) Hx of deep venous thrombosis: Plan This is a 78-year-old female who has a significant past medical history of HTN, GERD, CHANEL, solitary rectal ulcer syndrome, cervical disc disorder with myopathy, glaucoma, history of DVT/PE and obesity who presents to ED secondary to acute on chronic back pain. Acute on Chronic Back Pain --CT Lumbar spine reviewed from 01/24 showed Severe canal narrowing at L3-L4 due to disc bulge, spondylolisthesis and advanced facet hypertrophy noted. Also moderate to severe canal narrowing at L2-L3. Schedule APAP, cyclobenazaprine Pt with significant allergies: prn IV dilaudid for severe pain, IV toradol for mod pain Heat, Lidocaine patch Pt with significant N/V 2/2 pain, will place most meds as IV for now until better tolerating PO consult pain management for assistance with pain control Appreciate orthospine input and recommendation -MRI of the lumbar spine showed-severe canal stenosis and nerve root compression as mentioned in the report -s/p lumbar decompression and fusion on 01/27, monitor H/H postop, pain control as above Chronic Hyponatremia obtain sodium studies suspect 2/2 SIADH in setting of nausea due to pain poor intake over last few days despite fluid, sodium remains low Neprhology consuled, appreciate recs -SIADH -encourage solid food with high protein. -gentle fluid restriction of 1500 mL per day for now. - can still be discharged from na standpoint--stable around 130 range -f/u Nephrology within 1 week with BMP. GERD IV PPI initially when not tolerating PO On high dose steroids, po pantoprazole 40mg BID ordered while on steroids Has PRN famotidine ordered as well. Continue to monitor CHANEL Cpap at HS HTN chronic, stable continue lisinopril BP elevated 2/2 pain continue to monitor Obesity, BMI 34.7 encourage diet/lifestyle changes when physically able DVT ppx/Hx of DVT: per ortho spine post op FULL CODE Dispo: PT/OT per ortho spine Admission and Anticipated Discharge Date Admission Date: January 26, 2024 Physical Exam Physical Exam: General: Alert, oriented. No acute distress Skin: No noted rashes or bruises Psych: Appropriate mood and affect Neuro: difficulty with movements postop HEENT: NC/AT CV: RRR Resp: Breath sounds clear bilaterally, no increased effort of breathing. Abdomen: Soft, nontender, nondistended. Extremities: No edema in lower extremities bilaterally. Results & Data Results & Data Vital Signs (Past 12 Hours) Vital Signs Temp Pulse Resp BP Pulse Ox O2 Del Method 01/30/24 06:20 37.1 C 72 20 155/68 H 97 Room Air 01/30/24 01:58 36.9 C 78 20 137/72 97 Room Air
--- NOTE | 2024-01-30 13:30 | Discharge Summary ---
Discharge Summary Date of Service January 30, 2024 Notes For Next Care Provider Please ensure followup with Orthopedic Spine Surgery Please ensure followup with Nephrology for hyponatremia Per Nephrology: -SIADH -encourage solid food with high protein -gentle fluid restriction of 1500 mL per day for now -can still be discharged from Na standpoint--stable around 130 range -f/u Nephrology within 1 week with BMP. Medication Changes From Visit None Admission HPI Per Admitting Provider This is a 78-year-old female who has a significant past medical history of HTN, GERD, CHANEL, solitary rectal ulcer syndrome, cervical disc disorder with myopathy, glaucoma, history of DVT/PE and obesity who presents to ED secondary to acute on chronic back pain. Of significance patient was seen in ED yesterday. She underwent a CT of her lumbar spine which revealed no acute fractures, degenerative changes most pronounced at L3-L4 with L5 being demonstrated to be a transitional vertebrae. Severe canal narrowing at L3-L4 due to disc bulge, spondylolisthesis and advanced facet hypertrophy noted. Also moderate to severe canal narrowing at L2-L3. She denies any recent trauma. She has had back pain for several years. She worked as a early childhood education worker carrying mail which, "messed up her back," according to family at bedside. Symptoms have worsened over the last 3 to 4 days. She does have pain going down the right leg into the thigh. She denies any numbness or tingling, saddle anesthesia or loss of bowel or bladder. She has been taking Tylenol and a lidocaine patch without relief. She does have prior history of neck surgery several years ago. She has no prior history of low back surgery or significant trauma. Patient's daughter, son and [id number] are at bedside also help elicit history. In ED yesterday she received IV Zofran, Toradol and fentanyl. Symptoms were mildly improved and therefore she was discharged. Unfortunately patient symptoms worsened today as well as having significant nausea and vomiting due to the pain. She has been unable to keep anything down over the last 24 to 48 hours and therefore re presented back to the ED today. Due to nausea and vomiting CT scan of abdomen pelvis was performed which was without significant abnormality. She received IV fentanyl and IV fluid in ED with minimal relief. Admission Exam Per Admitting Provider GENERAL APPEARANCE: AxOx4,visibly uncomfortable, mild distress HEENT: NC, AT. MMM. EOMI, clear conjunctiva, oropharynx clear. NECK: Supple without lymphadenopathy. No stiffness or restricted ROM. HEART: Normal rate and regular rhythm, normal S1/S1, no m/r/g LUNGS: CTAB, moving air well. No crackles or wheezes are heard. ABDOMEN: Soft, nontender, nondistended with good bowel sounds heard. EXTREMITIES: Without cyanosis, clubbing or edema. NEUROLOGICAL: Grossly nonfocal. Alert and oriented, moving upper extremities however, declined raising of lower extremities 2/2 pain, sensation intact CN not formally tested but appear grossly intact. Skin: Warm and dry without any rash. Principal Dx & Hospital Course #1 = Principal Diagnosis (1) Acute exacerbation of chronic low back pain: (2) Spondylolisthesis at L3-L4 level: (3) Bulging lumbar disc: (4) Lumbar radiculopathy: (5) Chronic hyponatremia: (6) Hypertension: (7) CHANEL on CPAP: (8) Hx of deep venous thrombosis: Plan This is a 78-year-old female who has a significant past medical history of HTN, GERD, CHANEL, solitary rectal ulcer syndrome, cervical disc disorder with myopathy, glaucoma, history of DVT/PE and obesity who presented to the ED secondary to acute on chronic back pain. Acute on Chronic Back Pain CT Lumbar spine reviewed by admitting providers from 01/24 showed "Severe canal narrowing at L3-L4 due to disc bulge, spondylolisthesis and advanced facet hypertrophy". Also moderate to severe canal narrowing at L2-L3. MRI of the lumbar spine was obtained and showed severe canal stenosis and nerve root compression Pt with significant N/V in setting of pain Ortho spine surgery was consulted -s/p lumbar decompression and fusion on 01/27 pain was controlled or treated with scheduled APAP, cyclobenzaprine Pt with significant allergies, also received prn IV dilaudid for severe pain, IV toradol for moderate pain Heat, Lidocaine patch Consulted pain management for assistance with pain control, offered CHARITO but pt opted for surgical intervention as noted above instead. Ortho spine followup after discharge. Chronic Hyponatremia Sodium range of 126-132 this admission Urine sodium of 117, urine osmolality of 475 Suspect 2/2 SIADH in setting of nausea due to pain Poor intake as well Despite fluid, sodium remained low Nephrology consulted, appreciate recs -SIADH -encourage solid food with high protein -gentle fluid restriction of 1500 mL per day for now. -can still be discharged from na standpoint--stable around 130 range -f/u Nephrology within 1 week with BMP. Hypomagnesemia Repleted as needed, received 2 bags of magnesium on day of discharge for mag of 1.6 Likely low in setting of chronic ppi use PCP followup for continued monitoring GERD IV PPI initially when not tolerating PO On high dose steroids, was transitioned to po pantoprazole 40mg BID while on steroids with prn famotidine Continue home ppi on discharge CHANEL Cpap at HS, continue HTN chronic, stable continue lisinopril PCP follow up Obesity, BMI 34.7 encourage diet/lifestyle changes when physically able Discharge Exam General: Alert, oriented. No acute distress Skin: No noted rashes or bruises Psych: Appropriate mood and affect Neuro: difficulty with movements postop HEENT: NC/AT CV: RRR Resp: Breath sounds clear bilaterally, no increased effort of breathing. Abdomen: Soft, nontender, nondistended. Extremities: No edema in lower extremities bilaterally. Updated Medication List Medication Instructions Recorded Confirmed Type aspirin 81 mg tablet,delayed 81 mg PO QAM 04/01/22 01/26/24 History release brimonidine 0.15 % eye drops 1 drp OPB BID 04/01/22 01/26/24 History calcium citrate 315 mg 1 tab PO QAM 04/01/22 01/26/24 History calcium-vitamin D3 6.25 mcg (250 unit) tablet (Citracal + Vitamin D Maximum) dorzolamide 22.3 mg-timolol 6.8 1 drp OPB BID 04/01/22 01/26/24 History mg/mL eye drops esomeprazole magnesium 20 mg 20 mg PO QAM 04/01/22 01/26/24 History capsule,delayed release (Nexium) krill oil 500 mg capsule 500 mg PO BID 04/01/22 01/26/24 History lisinopril 20 mg tablet 20 mg PO QPM 04/01/22 01/26/24 History magnesium chloride 71.5 mg 71.5 mg PO QPM 04/01/22 01/26/24 History (magnesium chloride) tablet,delayed release (Slow-Mag) betamethasone dipropionate 0.05 % 1 applic topical BID PRN Rash 01/25/24 01/26/24 History lotion lidocaine 5 % topical patch 1 patch topical DAILY PRN pain #15 01/25/24 01/26/24 Rx ea meloxicam 15 mg tablet 15 mg PO QAM 01/25/24 01/26/24 History Hospital Stay Data Consultations 01/26/24 12:57 ED Decision to Admit Stat 01/26/24 13:17 Consult Orthopedic Surgery Routine 01/26/24 16:12 Consult Pain Management Routine 01/28/24 07:52 Consult Nephrology Routine Procedures Performed Operation Date: 01/28/24 07:50 Actual Procedures p L1-L2 Decompression and Fusion(Not Applicable) - Mike Castro, Diagnostic Imagining Performed 01/26/24 11:20 CT abd pelvis wo con Stat 01/27/24 08:26 MR lumbar spine wo con Stat 01/28/24 FL lumbar spine 2-3V Routine Abdomen/Pelvis CT 01/26/24 11:[address] WITHOUT CONTRAST CT DOSE: 1085.9 mGy.cm HISTORY: Acute right flank pain right flank pain, seen yesterday had CT LS TECHNIQUE: Multiaxial CT images of the abdomen and pelvis were performed without contrast. A dose lowering technique was utilized adhering to the principles of ALARA. COMPARISON STUDY: CT lumbar spine 01/25/2024, CT abdomen and pelvis 04/01/2022 FINDINGS: Mild subsegmental bibasilar atelectasis. There is no pneumatosis or pneumoperitoneum. Coronary artery calcifications. The unenhanced spleen, pancreas, adrenal glands, gallbladder and liver appear unremarkable. No renal or ureteral calculi or hydronephrosis. Mild bilateral pelviectasis is likely physiologic. Unremarkable urinary bladder, uterus and adnexa. Atherosclerosis of the aorta without aneurysm. There is no lymphadenopathy identified. Small hiatal hernia. No bowel obstruction or bowel wall thickening. Colonic diverticulosis. Mild to moderate fecal retention. Appendectomy. No ascites or mesenteric inflammation. Unremarkable soft tissues. Degenerative changes of the spine, pelvis and hips. There is multilevel central canal and neural foraminal narrowing. There is severe intervertebral disc space narrowing at the T12-L1 interspace. Transitional lumbosacral anatomy. IMPRESSION: 1. No acute intra-abdominal or intrapelvic abnormality. 2. No urolith or obstructive uropathy. 3. Colonic diverticulosis. 4. Additional findings as above. ACT 112: Negative or not required by law. The above report was generated using voice recognition software. It may contain grammatical, syntax or spelling errors. Electronically signed by: Chaz Bello M.D. 01/26/2024 12:35 PM Lumbar Spine MRI 01/27/24 08:26 MR lumbar spine wo con CLINICAL HISTORY: 78 years-old Female with right leg pain. Chronic low back pain with right lower extremity radicular symptoms. COMPARISON: CT 01/25/2024. TECHNIQUE: Multiplanar, multi sequence MRI of the lumbar spine was performed without intravenous contrast. FINDINGS: Transitional lumbosacral anatomy redemonstrated. There is partial sacralization of the L5 segment. The L5-S1 intervertebral disc spaces described on axial image 28. The clinical courier localizer images demonstrate no gross extra spinal abnormality. No acute fracture, subluxation or endplate erosion. Conus medullaris terminates at L1-L2. Normal signal within the imaged thoracic spinal cord. There is minimal no nspecific increased T2 signal within the lumbar paravertebral musculature. Severe T12-L1 intervertebral disc space narrowing with likely degenerative related 3 mm retrolisthesis. Distended urinary bladder. Anteflexed uterus. T12-L1: Severe intervertebral disc space narrowing and circumferential disc osteophyte complex and grade 1 retrolisthesis. Ligamentum flavum thickening with advanced facet arthrosis. Mild triangular central canal stenosis with AP dimension of the central canal measuring 9 mm. Severe bilateral foraminal stenosis. L1-L2: Mild intervertebral disc space narrowing with small circumferential disc osteophyte complex. Ligamentum flavum thickening with advanced facet arthrosis and trace facet effusions. There is a posterior annular fissure with right foraminal/far lateral disc protrusion measuring 1.4 cm transversely on image 7 series 7 with adjacent edema seen best on the sagittal STIR series. Moderate to severe right foraminal stenosis. Mild central canal stenosis, AP dimension of the central canal measuring 9 mm. Mild to moderate left foraminal narrowing. Edema extends into the right neural foramen. L2-L3: Mild to moderate intervertebral disc space narrowing and spondylotic spurring with circumferential annular disc bulge, ligamentum flavum thickening and advanced facet arthrosis with trace facet effusions. Severe central canal stenosis with AP dimension of the thecal sac measuring 5 mm. There is at least moderate narrowing of the lateral recesses. Mild to moderate right with moderate left foraminal stenosis. L3-L4: Mild to moderate posterior intervertebral disc space narrowing and spondylotic spurring with circumferential annular disc bulge. Ligamentum flavum thickening with advanced facet arthrosis and small facet effusions. Severe central canal stenosis with AP dimension of the thecal sac measuring 3 mm. Severe narrowing of the lateral recesses. Mild to moderate right with moderate to severe left foraminal stenosis L4-L5: Mild intervertebral disc space narrowing and spondylotic spurring with degenerative related to 3 mm anterolisthesis. Advanced facet arthrosis. The central canal is patent. There is at least mild narrowing of the lateral recesses. Mild bilateral foraminal stenosis. L5-S1: Transitional lumbosacral anatomy as above. No central canal or neural foraminal stenosis. IMPRESSION: 1. At L1-L2, there is a posterior annular fissure with right foraminal/right far lateral disc protrusion causing moderate to severe right foraminal stenosis with reactive edema extending into the right neural foramen. 2. Severe central canal stenosis at L2-L3 and L3-L4 with multilevel neural foraminal narrowing as above. 3. Severe intervertebral disc space narrowing at T12-L1. 4. Transitional lumbosacral anatomy redemonstrated. ACT 112: Negative or not required by law. The above report was generated using voice recognition software. It may contain grammatical, syntax or spelling errors. Dictated: 01/27/2024 1:05 PM Transcribed: 01/27/2024 1:30 PM Fanny [id number] DALTON_Barron [id number] Electronically signed by: Chaz Bello M.D. 01/27/2024 3:21 PM Lumbar Spine X-Ray 01/28/24 00:00 FL lumbar spine 2-3V CLINICAL HISTORY: L1-L2 DECOMP/FUSION COMPARISON STUDY: MRI 01/27/2024 FLUOROSCOPY TIME: 21.8 seconds FLUOROSCOPY IMAGES: 2 EXPOSURE DOSE: 13.32 mGy FINDINGS: Posterior interbody chetan and screw fusion hardware with discectomy noted at what is labeled the L1-L2 level. The hardware appears intact. No unexpected opaque foreign bodies. Severe T12-L1 intervertebral disc space narrowing redemonstrated. Note that the images were submitted following completion of the surgery. IMPRESSION: Fluoroscopic assistance as above. ACT 112: Negative or not required by law. Electronically signed by: Chaz Bello M.D. 01/28/2024 1:37 PM Chest X-Ray 01/28/24 09:44 XR chest 1V portable HISTORY: pre op COMPARISON: Chest 04/01/2022. FINDINGS: No pneumothorax. No pleural effusions. The heart is normal in size. Left basilar linear density favors scarring. This remains unchanged. Otherwise, the lungs are clear. Cervical spinal fusion hardware again noted. No acute fractures. IMPRESSION: No significant change compared to the prior study. No acute process. ACT 112: Negative or not required by law. Electronically signed by: Colin Clark M.D. 01/28/2024 10:07 AM Pending Results Patient Have Any Pending Studies at Discharge: No Discharge Instructions Given to Patient (Per Discharging Provider) ACTIVITY RECOMMENDATIONS: SELF CARE INSTRUCTIONS AFTER THORACIC/LUMBAR FUSIONS 1. You may walk to your tolerance. It is good exercise for your legs and back. Expect some back and intermittent leg aches and pains. 2. You may perform "counter-top" level activities (make a sandwich, becky with a project, etc.). 3. No bending or lifting of more than 10 pounds or back twisting of any nature (roll like a log when turning in bed). 4. You may ride in a car for 20-30 minutes at a time. No driving until after your first visit with your doctor. 5. Frequent changes of position and restricting sitting to 30 minutes at a time will help limit the amount of back spasms and stiffness you may experience. 6. You may discontinue the use of ambulatory aids (cane, crutches, etc.) once your strength and confidence allow. 7. You may repairer finished metal the shower and let water strike your incision when you a rrive home at least once daily. Do not take a tub bath, sit in a hot tub or go into a swimming pool until after your first recheck in the office. SPECIAL CARE INSTRUCTIONS: VERY IMPORTANT TO READ AND REVIEW A. Your surgical incision has been closed with a cosmetic suture under the skin that will dissolve in about 6 weeks. In 14 days, you can use a pair of clean scissors and cut the suture that is left outside of the skin at the ends of your incision. 1. The small skin tapes can be removed 7 days after surgery if they have not fallen off by that point. 2. You may keep the wound open to air as much as possible to promote healing after post-op day number 5 unless told otherwise by your doctor. 3. If you think the wound looks like it is becoming infected (redness or worsening drainage) and/or you are experiencing fever, chill or worsening back pain and muscle spasms, contact the office so that we may evaluate you as soon as possible. B. Complications are uncommon, but please contact us if you have any signs or symptoms of: 1. wound infection (fever higher than 102.5 degrees F, redness, separation of wound, drainage, or increasing pain from the incision) 2. blood clots in legs (pain, swelling, redness and warmth in legs) 3. urinary tract infection (fever higher than 102.5 degrees F, burning upon urination or increased frequency of urination) 4. nerve problems (inability to walk on your toes or heels, numbness, loss of bowel or bladder control) 5. any other symptoms that concern you C. Please call the office at if you have any concerns or questions about your operation or recovery. D. No smoking! Smoking drastically decreases the chance of a solid fusion. E. Do not take any anti-inflammatory medications (Indocin, Advil, Motrin, Aspirin, Naprosyn, etc.) as these may inhibit the chance of a solid fusion. Tylenol is okay to take for pain. MANAGING PAIN AFTER SPINAL SURGERY 1. Narcotic medication is intended for short-term use and will be provided for surgical pain. Surgical pain usually lasts for a period of 4-6 weeks. Narcotic medication includes Percocet, Vicodin, Darvocet, Tylenol #3 or Lortab. 2. Longer-term pain is more appropriately treated with non-narcotic medication such as Tylenol ES. 3. Muscle spasm is not appropriately treated with narcotics. Muscle relaxers such as Soma, Flexeril or Skelaxin can be used along with Tylenol ES. 4. Remember that we all live with some "aches and pains". This is not unusual or uncommon after an injury or as we get older. a. Back pain is expected and may include muscle spasms for 4 to 6 weeks afte r surgery. The pain should gradually improve. If the pain worsens for no apparent reason, please contact the office. b. Intermittent leg pain may also be experienced and should not be concerned about unless it worsens for no apparent reason. If so, please contact the office. 5. We will provide appropriate medication within the normal guidelines of their prescribed use. We will also be very cautious and aware of potential abuse and extended duration of patients' medication needs. a. Pain medications are for your comfort and to assist with sleep and rest so that the tissue can heal. They are not provided in order to return to normal activity and should not be used through the day. To do so or worsening pain at night can result from ongoing tissue damage and development of tolerance to the prescribed medicine. 6. Please allow 2-3 days to process refills. Prescriptions will not be mailed but must be picked up at the office. FOLLOW UP VISIT: Keep your scheduled follow-up appointment. Any questions, please call the office at . Total Time Total Time Spent Total Time Spent (In Minutes): > 30 minutes
== END 2024-01-30 16:01 | disposition home or self-care (01) | DRG 454 ==
LOC: ED 09:59 → 2W 13:40 → SUATTDRO 13:56 → EDINP 13:56 → 2W 17:16 → 3N 01-28 15:20

== ENCOUNTER 2024-02-06 15:25 | Inpatient (IN) ==
[2024-02-06] MEDS: SODIUM CHLORIDE 0.9% 1,000 ML IV SCH (15:37)
[2024-02-06 16:01] LABS: Basophils # (auto) 0.01 K/uL (0.00-0.20); Basophils % (auto) 0.1 %; Eosinophils # (auto) 0.01 K/uL (0.00-0.50); Eosinophils % (auto) 0.1 %; Hematocrit (blood only) 31.6 % (37.0-47.0); Hemoglobin 11.2 g/dl (12.0-16.0); Immature Granulocytes # (auto) 0.02 K/uL (0.01-0.20); Immature Granulocytes % (auto) 0.3 %; Lymphocytes # (auto) 1.65 K/uL (1.20-3.40); Lymphocytes % (auto) 22.8 %; Mean Corpuscular Hemoglobin 29.2 pg (25.0-34.0); Mean Corpuscular Hgb Conc 35.4 g/dL (32.0-36.0); Mean Corpuscular Volume 82.5 fL (80.0-100.0); Mean Platelet Volume 9.2 fL (9.4-12.4); Monocytes # (auto) 0.54 K/uL (0.11-0.59); Monocytes % (auto) 7.5 %; Neutrophils # (auto) 5.01 K/uL (1.40-6.50); Neutrophils % (auto) 69.2 %; Platelet Count 460 K/uL (130-400); RDW Coefficient of Variation 12.9 % (11.5-14.5); Red Blood Count 3.83 M/uL (4.20-5.40); White Blood Count 7.24 K/ul (4.8-10.8)
[2024-02-06 16:17] LABS: Alanine Aminotransferase 10 U/L (7-52); Albumin Globulin Ratio 1.1 (0.9-2); Alkaline Phosphatase 53 U/L (34-104); Anion Gap 11 (3-11); Aspartate Aminotransferase 14 U/L (13-39); BUN Creatinine Ratio 15.7 (10-20); Bilirubin,Total 0.4 mg/dl (0.2-1.0); Blood Urea Nitrogen 11 mg/dl (6-23); Calcium 9.5 mg/dl (8.6-10.3); Carbon Dioxide 23 mmol/L (21-32); Chloride 92 mmol/L (98-107); Est GFR (African American) 96.9 ml/min; Est GFR (Non-African American) 83.6 ml/min; Globulin 3.6 gm/dl (2.5-4.0); Glucose 123 mg/dl (70-99(Fasting)); Potassium 3.5 mmol/L (3.5-5.1); Sodium 126 mmol/L (136-145); Total Protein 7.6 gm/dl (6.0-8.3)
--- NOTE | 2024-02-06 16:49 | Emergency Department Note ---
Impression & Plan Generalized weakness, Acute hyponatremia, Hypomagnesemia, Nausea, Right groin pain ED Provider Note HISTORY OF PRESENT ILLNESS: Patient is a 78-year-old female presenting with right groin pain, generalized weakness and decreased oral intake. Patient had a spinal fusion performed 9 days ago. Reportedly was doing well initially postoperatively, but in the last 48 hours has developed significant pain in the right groin, nausea and significant weakness. Reportedly has been having decreased oral intake in the last 48 hours, as every time she eats anything she starts dry heaving and vomiting. Developed a temperature of 100.1 earlier today. She is allergic to multiple pain medications, and has been alternating Tylenol and ibuprofen for her postoperative pain. However, in the last 24 hours it is not helping. Denies any abdominal pain. Denies any chest pain or shortness of breath. Reports feeling lightheaded and weak when she tries to stand up. Family reports they have tried Compazine and Zofran at home for her nausea, but has not worked. They were concerned for her progressively worsening weakness in her right groin pain, prompting her presentation to the emergency department. ROS: as above PHYSICAL EXAM: Constitutional: Patient appears in no acute distress. HENT: Head: Normocephalic and atraumatic. Eyes: EOMI, PERRL Mouth/Throat: Mucous membranes moist. Neck: Trachea midline. Neck supple. Cardiovascular: RRR, No murmurs, rubs or gallops. Intact distal pulses. Pulmonary/Chest: No respiratory distress. Breath sounds clear and equal bilaterally. No wheezes or rales. Abdominal: Abdomen soft, no tenderness, rebound or guarding. Back: No midline spinal tenderness, no paraspinal tenderness, no CVA tenderness. Spinal incision appears clean/dry/intact. Steri-Strips are still in place. No wound dehiscence or erythema around the incision Musculoskeletal: No edema, tenderness or deformity noted. Skin: Warm and dry. No rash, erythema, pallor or cyanosis Psychiatric: Appropriate mood and affect for situation. Neurological: Alert and keenly responsive. CN II-XII grossly intact, moving all extremities equally and fully. MDM: - Vitals signs showed hypertension - History obtained via patient. History as above. - Chronic conditions affecting care: HTN; GERD - Differential diagnoses include, but are not limited to: post-op ileus; viral syndrome; electrolyte abnormality; dehydration - Order placed for continuous cardiac monitoring. At this time, monitor showed rate of 86 bpm with normal sinus rhythm, per my interpretation. - External medical records reviewed. Operative report dated 01/28/2024 was reviewed. Patient had lumbar disc herniation radiculopathy of L1/L2. She had lumbar decompression with bilateral medial fasciectomy's and foraminectomy's of T12-L2 and posterior final fusion of L1/L2. - EKG interpreted by myself showed normal sinus rhythm. Rate 81 bpm. QT 384. No acute ischemic changes. - Laboratory workup interpreted by myself showed normal WBC; hyponatremia (Na 126); hypomagnesemia (Mg 1.5); normal procalcitonin; normal liver function - Viral respiratory panel negative - CT lumbar spine with IV contrast showed a small rim-enhancing posterior paraspinal fluid collection at the L2/L3 level. - Patient initially given 0.5 mg IV dilaudid in ER for pain management. She became hypoxic and was placed on 2L NC. Given 4 mg IV zofran and 2L NS for further symptomatic management. - Pain returned and patient was given 50 mcg IV fentanyl. - Discussed results with patient and her family at bedside. They expressed concern about the patient's ability to get around at home and her inability to tolerate oral intake. - Discussion was had with case maker about patient's case and need for admission - Hospitalist consulted for admission - Patient admitted to [facility] for further evaluation and management. ASSESSMENT AND PLAN: Diagnosis: generalized weakness; acute hyponatremia; hypomagnesemia; right groin pain; nausea Plan: admit Past Med/Surg History Medical History Lumbar disc herniation with radiculopathy Right L1-2 right foraminal/right far lateral disc protrusion or MRI 01/26/2024 CHANEL on CPAP Hypertension GERD (gastroesophageal reflux disease) Surgical History Hx of unilateral oophorectomy R 2/2 cyst Hx of appendectomy Hx of colonoscopy Hx of esophagogastroduodenoscopy Hx of breast biopsy H/O neck surgery Family History Other Breast cancer Cancer Coronary heart disease Social History Smoking Status: Never smoker Hx Alcohol Use: No Hx Substance Use: No Preferred Language: French Communication Ability: Effective It Systems Administrator Required: No Beliefs That Will Affect Care: None Current Living Situation: Alone Feels Safe at Home: Yes Assistive Devices: Stair Lift Allergies Allergies Allergy/AdvReac Type Severity Reaction Status Date / Time erythromycin base Allergy Intermediate RASH Verified 02/06/24 17:28 Opioids - Morphine Analogues Allergy Intermediate increased Verified 02/06/24 17:28 BP, hives oxycodone [From Percocet] Allergy Intermediate INCREASES Verified 02/06/24 17:28 B/P, HIVES morphine AdvReac Severe SEVERE Verified 02/06/24 17:28 NAUSEA AND VOMITING prednisone AdvReac Severe "STEROIDS" Verified 02/06/24 17:28 = "EXTREME HEADACHE AND HEART PALPITATIONS" codeine [From [facility] ] AdvReac Intermediate N/V Verified 02/06/24 17:28 guaifenesin AdvReac Intermediate N/V Verified 02/06/24 17:28 [From [facility]] tramadol AdvReac Intermediate nausea and Verified 02/06/24 17:28 vomit Home Meds Home Medications Medication Instructions Recorded Confirmed aspirin 81 mg tablet,delayed 81 mg PO QAM 04/01/22 02/06/24 release brimonidine 0.15 % eye drops 1 drp OPB BID 04/01/22 02/06/24 calcium citrate 315 mg 1 tab PO QAM 04/01/22 02/06/24 calcium-vitamin D3 6.25 mcg (250 unit) tablet (Citracal + Vitamin D Maximum) dorzolamide 22.3 mg-timolol 6.8 1 drp OPB BID 04/01/22 02/06/24 mg/mL eye drops esomeprazole magnesium 20 mg 20 mg PO QAM 04/01/22 02/06/24 capsule,delayed release (Nexium) krill oil 500 mg capsule 500 mg PO BID 04/01/22 02/06/24 lisinopril 20 mg tablet 20 mg PO QPM 04/01/22 02/06/24 magnesium chloride 71.5 mg 71.5 mg PO QPM 04/01/22 02/06/24 (magnesium chloride) tablet,delayed release (Slow-Mag) betamethasone dipropionate 0.05 % 1 applic topical BID PRN Rash 01/25/24 02/06/24 lotion meloxicam 15 mg tablet 15 mg PO QAM 01/25/24 02/06/24 acetaminophen 650 mg 1,300 mg PO DIRECTED PRN Pain 02/06/24 02/06/24 tablet,extended release (Tylenol 8 Hour) ibuprofen 200 mg tablet 400 mg PO DIRECTED PRN Pain 02/06/24 02/06/24 Previous Rx's Medication Instructions Recorded lidocaine 5 % topical patch 1 patch topical DAILY PRN pain #15 01/25/24 ea Results & Data (ED) Vital Signs Vital Signs - 24 hr 02/06/24 15:28 02/06/24 16:30 02/06/24 16:32 Temperature 37 C Temperature Source Temporal Artery Scan Pulse Rate 88 71 73 Pulse Rate [Apical] Pulse Rate from SpO2 Sensor 72 73 Respiratory Rate 22 20 20 Respiratory Depth Normal Blood Pressure 172/94 H 204/102 H 188/99 H Blood Pressure [Right Arm] Blood Pressure Mean 120 136 128 Blood Pressure Mean [Right Arm] Blood Pressure Position Sitting Pulse Oximetry 99 99 98 Oxygen Delivery Method Room Air Oxygen Flow Rate Sepsis Recent Fever Within 48 Hours Yes Sepsis New/Unexplained Change in Mental Status No Sepsis Action Taken by Nursing No Action Required Oxygen Flow Rate - Titration Pulse Oximetry Post Tiitration 02/06/24 16:45 02/06/24 17:11 02/06/24 17:20 Temperature Temperature Source Pulse Rate 72 79 78 Pulse Rate [Apical] Pulse Rate from SpO2 Sensor 80 78 Respiratory Rate 15 19 Respiratory Depth Blood Pressure 186/94 H Blood Pressure [Right Arm] Blood Pressure Mean 124 Blood Pressure Mean [Right Arm] Blood Pressure Position Pulse Oximetry 95 97 Oxygen Delivery Method Oxygen Flow Rate 0 Sepsis Recent Fever Within 48 Hours Sepsis New/Unexplained Change in Mental Status Sepsis Action Taken by Nursing Oxygen Flow Rate - Titration Pulse Oximetry Post Tiitration 02/06/24 17:21 02/06/24 17:30 02/06/24 18:00 Temperature Temperature Source Pulse Rate 76 73 Pulse Rate [Apical] Pulse Rate from SpO2 Sensor 75 73 Respiratory Rate 17 21 Respiratory Depth Blood Pressure 193/97 H 177/93 H Blood Pressure [Right Arm] Blood Pressure Mean 129 121 Blood Pressure Mean [Right Arm] Blood Pressure Position Pulse Oximetry 88 L 97 98 Oxygen Delivery Method Nasal Cannula Oxygen Flow Rate 0 Sepsis Recent Fever Within 48 Hours Sepsis New/Unexplained Change in Mental Status Sepsis Action Taken by Nursing Oxygen Flow Rate - Titration 2 Pulse Oximetry Post Tiitration 97 02/06/24 19:00 02/06/24 19:21 02/06/24 19:47 Temperature Temperature Source Pulse Rate Pulse Rate [Apical] 86 Pulse Rate from SpO2 Sensor Respiratory Rate 19 Respiratory Depth Blood Pressure Blood Pressure [Right Arm] 206/105 H 192/98 H Blood Pressure Mean Blood Pressure Mean [Right Arm] 138 129 Blood Pressure Position Pulse Oximetry 96 96 Oxygen Delivery Method Room Air Room Air Oxygen Flow Rate Sepsis Recent Fever Within 48 Hours Sepsis New/Unexplained Change in Mental Status Sepsis Action Taken by Nursing Oxygen Flow Rate - Titration Pulse Oximetry Post Tiitration Laboratory Data 02/06/24 15:43 02/06/24 15:43 Lab Results 02/06/24 02/06/24 Range/Units 15:43 Unknown WBC 7.24 (4.8-10.8) K/ul RBC 3.83 L (4.20-5.40) M/uL Hgb 11.2 L (12.0-16.0) g/dl Hct 31.6 L (37.0-47.0) % MCV 82.5 (80.0-100.0) fL MCH 29.2 (25.0-34.0) pg MCHC 35.4 (32.0-36.0) g/dL RDW Std Deviation 39.0 (36.4-46.3) fL RDW Coeff of Angela 12.9 (11.5-14.5) % Plt Count 460 H (130-400) K/uL MPV 9.2 L (9.4-12.4) fL Immature Gran % (Auto) 0.3 % Neut % (Auto) 69.2 % Lymph % (Auto) 22.8 % Payne % (Auto) 7.5 % Eos % (Auto) 0.1 % Baso % (Auto) 0.1 % Neut # (Auto) 5.01 (1.40-6.50) K/uL Lymph # (Auto) 1.65 (1.20-3.40) K/uL Payne # (Auto) 0.54 (0.11-0.59) K/uL Eos # (Auto) 0.01 (0.00-0.50) K/uL Baso # (Auto) 0.01 (0.00-0.20) K/uL Immature Gran # (Auto) 0.02 (0.01-0.20) K/uL Sodium 126 L (136-145) mmol/L Potassium 3.5 (3.5-5.1) mmol/L Chloride 92 L (98-107) mmol/L Carbon Dioxide 23 (21-32) mmol/L Anion Gap 11 (3-11) BUN 11 (6-23) mg/dl Creatinine 0.70 (0.6-1.2) mg/dl Est Cr Clr Drug Dosing Not Reportable Est GFR ( Amer) 96.9 ml/min Est GFR (Non-Af Amer) 83.6 ml/min BUN/Creatinine Ratio 15.7 (10-20) Glucose 123 H (70-99(Fasting)) mg/dl Calcium 9.5 (8.6-10.3) mg/dl Magnesium 1.5 L (1.7-2.4) mg/dl Total Bilirubin 0.4 (0.2-1.0) mg/dl AST 14 (13-39) U/L ALT 10 (7-52) U/L Alkaline Phosphatase 53 (34-104) U/L Total Protein 7.6 (6.0-8.3) gm/dl Albumin 4.0 (3.4-5.0) gm/dl Globulin 3.6 (2.5-4.0) gm/dl Albumin/Globulin Ratio 1.1 (0.9-2) Procalcitonin < 0.02 (0-0.5) ng/ml Adenovirus (PCR) Not Detected (NotDetected) B. pertussis DNA (PCR) Not Detected (NotDetected) B.parapertussis DNA PCR Not Detected (NotDetected) C. pneumoniae DNA (PCR) Not Detected (NotDetected) Coronavirus OC43 (PCR) Not Detected (NotDetected) Coronavirus HKU1 (PCR) Not Detected (NotDetected) Coronavirus 229E (PCR) Not Detected (NotDetected) SARS-CoV-2 (PCR) Not Detected (NotDetected) Coronavirus NL63 (PCR) Not Detected (NotDetected) Human Metapneumovir PCR Not Detected (NotDetected) Influenza Type A (PCR) Not Detected (NotDetected) Influenza Type B (PCR) Not Detected (NotDetected) M. pneumoniae (PCR) Not Detected (NotDetected) Parainfluenza 1 (PCR) Not Detected (NotDetected) Parainfluenza 2 (PCR) Not Detected (NotDetected) Parainfluenza 3 (PCR) Not Detected (NotDetected) Parainfluenza 4 (PCR) Not Detected (NotDetected) RSV (PCR) Not Detected (NotDetected) Entero/Rhino (PCR) Not Detected (NotDetected) Administered Medications Discontinued Medications Fentanyl Citrate (Fentanyl Citrate Pf 100 Mcg/2 Ml Vial) 50 mcg IV NOW STA Stop: 02/06/24 18:49 Last Admin: 02/06/24 19:22 Dose: 50 mcg Documented By: DEBO Hydromorphone HCl (Hydromorphone Inj 0.5 Mg/0.5 Ml Syr) 0.5 mg IV NOW STA Stop: 02/06/24 16:48 Last Admin: 02/06/24 17:04 Dose: 0.5 mg Documented By: BONITA Sodium Chloride (Nss) 1,000 mls @ 999 mls/hr IV .Q1H1M CHANDNI Stop: 02/06/24 16:45 Last Infusion: 02/06/24 18:14 Dose: Infused Documented By: Admin: 02/06/24 15:37 Dose: 999 mls/hr Documented By: TNK Sodium Chloride (Nss) 1,000 mls @ 999 mls/hr IV .Q1H1M ONE Stop: 02/06/24 17:47 Last Infusion: 02/06/24 19:28 Dose: Infused Documented By: Admin: 02/06/24 18:27 Dose: 999 mls/hr Documented By: BONITA Magnesium Sulfate/Dextrose (Magnesium Sulfate / D5w) 1 gm in 100 mls @ 100 mls/hr IV NOW STA Stop: 02/06/24 19:54 Last Infusion: 02/06/24 20:34 Dose: Infused Documented By: Admin: 02/06/24 19:23 Dose: 100 mls/hr Documented By: DEBO Ioversol (Optiray 320 100ml) 91 ml IV ONCE ONE Stop: 02/06/24 18:23 Last Admin: 02/06/24 18:22 Dose: 91 ml Documented By: SUSAN Ondansetron HCl (Ondansetron Inj 2 Mg/Ml 2 Ml Vial) 4 mg IV NOW STA Stop: 02/06/24 16:48 Last Admin: 02/06/24 17:04 Dose: 4 mg Documented By: BONITA Imaging Data Radiologist's Impression: Lumbar Spine CT 02/06/24 17:[address] WITH CONTRAST CLINICAL HISTORY: Right groin pain; recent lumbar surgery COMPARISON STUDY: Lumbar spine CT January 25, 2024. Lumbar spine MRI January 27, 2024. Lumbar spine fluoroscopic images January 28, 2024. TECHNIQUE: Axial images of the lumbar spine were obtained following intravenous injection of 91 cc of Optiray 320 IV. Sagittal and coronal reconstructions were viewed. Automated exposure control was utilized for the study. A dose lowering technique was utilized adhering to the principles of ALARA. FINDINGS: For purposes of numbering on this exam, the L5-S1 disc space is assigned to axial image 351 of 383. When utilizing this numbering scheme, L5 represents a transitional vertebra. The left aspect of L5 is hemisacralized. This corresponds to the numbering scheme on prior CT and lumbar spine MRI. There are postoperative findings consistent with interval L1-L2 decompression, discectomy and bilateral pedicle screw fusion. The hardware is intact. There are no unexpected radiopaque foreign bodies. The central canal and neural foramen are suboptimally assessed given CT technique and are better depicted on previous MRI of January 27, 2024. A small rim-enhancing fluid collection measuring 1.7 x 1 cm along the right posterior aspect of the spine at the L2-L3 level is noted. A tiny left-sided fluid collection is noted on image 234 of 383. No additional fluid collections are noted. These collections were not evident on prior CT and MRI. There are no lumbar spine fractures. Severe disc space narrowing at T12/L1 is again noted. IMPRESSION: 1. Status post L1-L2 decompression and fusion. Hardware intact. No unexpected radiopaque foreign bodies. 2. No lumbar spine fractures. 3. Small rim-enhancing posterior paraspinal fluid collections at the L2-L3 level, right larger than left, as described above. These may be postsurgical or degenerative in etiology. Sterility cannot be assessed by CT. 4. Multilevel degenerative changes within the lumbar spine. Suboptimal evaluation of the central canal and neural foramen given CT technique and artifact from the surgical hardware. ACT 112: Negative or not required by law. Electronically signed by: Rick Herrmann M.D. 02/06/2024 7:27 PM Discharge Plan Visit Data Chief Complaint: Weakness Stated Complaint: SUGERY LAST WEEK, WEAK, DEHYDRATION, FEVER ED Provider: Teresa Colon Discharge Problem: Generalized weakness, Acute hyponatremia, Hypomagnesemia, Nausea, Right groin pain Forms Stand Alone Forms: My [facility] Prescriptions Prescriptions: No Action lisinopril 20 mg tablet 20 mg PO QPM aspirin 81 mg Tablet,Delayed Release (Dr/Ec) 81 mg PO QAM Rx Instructions: ON HOLD D/T SURGERY dorzolamide-timolol 22.3-6.8 mg/mL drops 1 drp OPB BID brimonidine 0.15 % drops 1 drp OPB BID esomeprazole magnesium [Nexium] 20 mg Capsule,Delayed Release(Dr/Ec) 20 mg PO QAM calcium citrate-vitamin D3 [Citracal + D Maximum] 315 mg-6.25 mcg (250 unit) Tablet 1 tab PO QAM Slow-Mag 71.5 mg Tablet,Delayed Release (Dr/Ec) 71.5 mg PO QPM krill oil 500 mg Capsule 500 mg PO BID meloxicam 15 mg tablet 15 mg PO QAM Rx Instructions: ON HOLDD/T SURGERY betamethasone dipropionate 0.05 % lotion 1 applic TOPICAL BID PRN (Reason: Rash) lidocaine 5 % adhesive patch,medicated 1 patch TOP DAILY PRN (Reason: pain) Qty: 15 0RF Rx Instructions: leave on most painful area for 12 hrs acetaminophen [Tylenol 8 Hour] 650 mg Tablet Extended Release 1,300 mg PO DIRECTED PRN (Reason: Pain) ibuprofen 200 mg Tablet 400 mg PO DIRECTED PRN (Reason: Pain) Referrals Referrals: Brook Boucher, [Primary Care Provider] -
[2024-02-06] MEDS: ONDANSETRON INJ 2 MG/ML 2 ML VIAL IV STA (17:04)
[2024-02-06] MEDS: HYDROmorphone INJ 0.5 MG/0.5 ML SYR IV STA (17:04)
[2024-02-06 17:30] LABS: Adenovirus PCR Not Detected (NotDetected); Bordetella parapertussis PCR Not Detected (NotDetected); Bordetella pertussis PCR Not Detected (NotDetected); Chlamydia pneumoniae PCR Not Detected (NotDetected); Coronavirus 229E PCR Not Detected (NotDetected); Coronavirus CoV-2 (COVID19)PCR Not Detected (NotDetected); Coronavirus HKU1 PCR Not Detected (NotDetected); Coronavirus NL63 PCR Not Detected (NotDetected); Coronavirus OC43PCR Not Detected (NotDetected); Human Metapneumovirus PCR Not Detected (NotDetected); Influenza A PCR Not Detected (NotDetected); Influenza B PCR Not Detected (NotDetected); Mycoplasma pneumoniae PCR Not Detected (NotDetected); Parainfluenza Virus 1 PCR Not Detected (NotDetected); Parainfluenza Virus 2 PCR Not Detected (NotDetected); Parainfluenza Virus 3 PCR Not Detected (NotDetected); Parainfluenza Virus 4 PCR Not Detected (NotDetected); Respiratory Syncytial VirusPCR Not Detected (NotDetected); Rhinovirus/Enterovirus PCR Not Detected (NotDetected)
[2024-02-06] MEDS: OPTIRAY 320 100ml IV ONE (18:22)
[2024-02-06] MEDS: SODIUM CHLORIDE 0.9% 1,000 ML IV ONE (18:27)
[2024-02-06 18:53] LABS: Magnesium 1.5 mg/dl (1.7-2.4)
[2024-02-06] MEDS: fentaNYL citrate PF 100 MCG/2 ML VIAL IV STA ×2 (19:22→21:24)
[2024-02-06] MEDS: MAGNESIUM SULFATE / D5W 1 GM/100 ML BAG IV STA (19:23)
--- NOTE | 2024-02-06 19:29 | CT Scan Report ---
LUMBAR SPINE CT WITH CONTRAST CLINICAL HISTORY: Right groin pain; recent lumbar surgery COMPARISON STUDY: Lumbar spine CT January 25, 2024. Lumbar spine MRI January 27, 2024. Lumbar spine fluo roscopic images January 28, 2024. TECHNIQUE: Axial images of the lumbar spine were obtained following intravenous injection of 91 cc of Optiray 320 IV. Sagittal and coronal reconstructions were viewed. Automated exposure control was uti lized for the study. A dose lowering technique was utilized adhering to the principles of ALARA. FINDINGS: For purposes of numbering on this exam, the L5-S1 disc space is assigned to axial image 351 of 383. When utilizing this numbering scheme, L5 represents a transitional vertebra. The left aspect of L5 is hemisacralized. This corresponds to the numbering scheme on prior CT and lumbar spine MRI. There are postoperative findings consistent with interval L1-L2 decompression, discectomy and bilater al pedicle screw fusion. The hardware is intact. There are no unexpected radiopaque foreign bodies. T he central canal and neural foramen are suboptimally assessed given CT technique and are better depic juliana on previous MRI of January 27, 2024. A small rim-enhancing fluid collection measuring 1.7 x 1 cm al geraldo the right posterior aspect of the spine at the L2-L3 level is noted. A tiny left-sided fluid mode ection is noted on image 234 of 383. No additional fluid collections are noted. These collections wer e not evident on prior CT and MRI. There are no lumbar spine fractures. Severe disc space narrowing a t T12/L1 is again noted. IMPRESSION: 1. Status post L1-L2 decompression and fusion. Hardware intact. No unexpected radiopaque foreign bodi es. 2. No lumbar spine fractures. 3. Small rim-enhancing posterior paraspinal fluid collections at the L2-L3 level, right larger than l eft, as described above. These may be postsurgical or degenerative in etiology. Sterility cannot be a ssessed by CT. 4. Multilevel degenerative changes within the lumbar spine. Suboptimal evaluation of the central kathrin l and neural foramen given CT technique and artifact from the surgical hardware. ACT 112: Negative or not required by law. Electronically signed by: Rick Herrmann M.D. 02/06/2024 7:27 PM
[2024-02-06] MEDS: ACETAMINOPHEN 1,000 MG/100 ML VIAL IV STA (21:26)
--- NOTE | 2024-02-06 21:58 | History & Physical Report ---
Date of Service February 06, 2024 Assessment & Plan (1) Right groin pain: Plan: 78-year-old female who has a significant past medical history of HTN, GERD, CHANEL, solitary rectal ulcer syndrome, cervical disc disorder with myopathy, glaucoma, history of DVT/PE and obesity who Recently had back surgery for acute on chronic pain and discharged home comes because of weakness, severe back pain radiating to right groin and right leg and ambulatory dysfunction and poor oral intake.Currently daughter is living with the patient. Since discharge she did okay for some time. But since last Friday she is having a lot of pain in the right groin region radiating to right thigh region and not able to ambulate and feeling weak and not able to eat because of nausea and for this reason she was brought in back today. In the ER labs showed sodium 126 , mag of 1.5. Not moving her bowels much because not eating much and not micturating much . As per daughter today she had a fever 100.1 degrees. In the ER she is afebrile. Denies any abdominal pain. Currently nausea improved with antiemetics. Denies chest pain or shortness of breath. No headache. No earache or runny nose or sore throat. Hemodynamics are okay. Right groin pain Radiating to right leg Back pain Ambulatory dysfunction Recent back surgery Lumbar spine CT shows small rim enhancing posterior paraspinal fluid collections at the L2-L3 level right greater than left this may be postsurgical or d egenerative in etiology. Hardware intact. Pain control Consult orthopedics in a.m. for further recommendations PT OT when able to Hyponatremia Sodium 126 SIADH Seen by nephrology last admission And was recommended solid food with high-protein and full restriction of 1500 mill per day Received fluids in the ER Will follow repeat labs BMP every 6 hours Nephro consult in a.m. Obstructive sleep apnea CPAP nightly Hypomagnesia Replaced Will follow labs Hypertension Currently elevated Continue home lisinopril IV labetalol as needed Obesity Counseling DVT prophylaxis SCDs for now Lovenox if okay with Ortho Disposition Med/telemetry Full code History of Present Illness Chief Complaint: Back pain radiating to the right leg. Weakness. Poor oral intake Primary Care Provider: Brook Boucher DO 78-year-old female who has a significant past medical history of HTN, GERD, CHANEL, solitary rectal ulcer syndrome, cervical disc disorder with myopathy, glaucoma, history of DVT/PE and obesity who Recently had back surgery for acute on chronic pain and discharged home comes because of weakness, severe back pain radiating to right groin and right leg and ambulatory dysfunction and poor oral intake.Currently daughter is living with the patient. Since discharge she did okay for some time. But since last Friday she is having a lot of pain in the right groin region radiating to right thigh region and not able to ambulate and feeling weak and not able to eat because of nausea and for this reason she was brought in back today. In the ER labs showed sodium 126 , mag of 1.5. Not moving her bowels much because not eating much and not micturating much . As per daughter today she had a fever 100.1 degrees. In the ER she is afebrile. Denies any abdominal pain. Currently nausea improved with antiemetics. Denies chest pain or shortness of breath. No headache. No earache or runny nose or sore throat. Hemodynamics are okay. Past medical history. As mentioned above Past surgical history. Left breast biopsy. Closure of vagina. Colonoscopy. Cystoscopy. EGD. Cervical spine fusion surgery. Appendectomy. Removal of ovaries. Repair of bladder defect. Social history. No smoking. No alcohol use. No drug use. Family history. Sister breast cancer. Glaucoma. sister had CAD s/p stent and CABG. Father had lung cancer. Mother had heart disorder. Uncle had colon cancer. Allergies Allergy/AdvReac Type Severity Reaction Status Date / Time erythromycin base Allergy Intermediate RASH Verified 02/06/24 17:28 Opioids - Morphine Analogues Allergy Intermediate increased Verified 02/06/24 17:28 BP, hives oxycodone [From Percocet] Allergy Intermediate INCREASES Verified 02/06/24 17:28 B/P, HIVES morphine AdvReac Severe SEVERE Verified 02/06/24 17:28 NAUSEA AND VOMITING prednisone AdvReac Severe "STEROIDS" Verified 02/06/24 17:28 = "EXTREME HEADACHE AND HEART PALPITATIONS" codeine [From [facility] ] AdvReac Intermediate N/V Verified 02/06/24 17:28 guaifenesin AdvReac Intermediate N/V Verified 02/06/24 17:28 [From [facility] ] tramadol AdvReac Intermediate nausea and Verified 02/06/24 17:28 vomit Home Medications Medication Instructions Recorded Confirmed Type aspirin 81 mg tablet,delayed 81 mg PO QAM 04/01/22 02/06/24 History release brimonidine 0.15 % eye drops 1 drp OPB BID 04/01/22 02/06/24 History calcium citrate 315 mg 1 tab PO QAM 04/01/22 02/06/24 History calcium-vitamin D3 6.25 mcg (250 unit) tablet (Citracal + Vitamin D Maximum) dorzolamide 22.3 mg-timolol 6.8 1 drp OPB BID 04/01/22 02/06/24 History mg/mL eye drops esomeprazole magnesium 20 mg 20 mg PO QAM 04/01/22 02/06/24 History capsule,delayed release (Nexium) krill oil 500 mg capsule 500 mg PO BID 04/01/22 02/06/24 History lisinopril 20 mg tablet 20 mg PO QPM 04/01/22 02/06/24 History magnesium chloride 71.5 mg 71.5 mg PO QPM 04/01/22 02/06/24 History (magnesium chloride) tablet,delayed release (Slow-Mag) betamethasone dipropionate 0.05 % 1 applic topical BID PRN Rash 01/25/24 02/06/24 History lotion lidocaine 5 % topical patch 1 patch topical DAILY PRN pain #15 01/25/24 02/06/24 Rx ea meloxicam 15 mg tablet 15 mg PO QAM 01/25/24 02/06/24 History acetaminophen 650 mg 1,300 mg PO DIRECTED PRN Pain 02/06/24 02/06/24 History tablet,extended release (Tylenol 8 Hour) ibuprofen 200 mg tablet 400 mg PO DIRECTED PRN Pain 02/06/24 02/06/24 History Past Med/Surg History Medical History Lumbar disc herniation with radiculopathy Right L1-2 right foraminal/right far lateral disc protrusion or MRI 01/26/2024 CHANEL on CPAP Hypertension GERD (gastroesophageal reflux disease) Surgical History Hx of unilateral oophorectomy R 2/2 cyst Hx of appendectomy Hx of colonoscopy Hx of esophagogastroduodenoscopy Hx of breast biopsy H/O neck surgery Family History Other Breast cancer Cancer Coronary heart disease Social History Smoking Status: Never smoker Hx Alcohol Use: No Hx Substance Use: No Preferred Language: Irish Communication Ability: Effective 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 Head- atraumatic Eyes- PERRL. ENT- oropharynx clear Neck- supple, no JVD. Lungs- clear to auscultation no wheezing or crackles. Heart- regular rhythm; no murmur, no gallop. Abdomen- normal bowel sounds, soft, nontender, no distension. Extremities- no pretibial edema, no erythema seen. Neuro- alert, oriented ; PERRL, no facial palsy; no dysarthria; moves extremities. Musculoskeletal- Back surgery site no erythema or swelling seen. b/l Straight leg raise test negative. Results & Data Results & Data Vital Signs (Past 12 Hours) Vital Signs Temp Pulse Pulse Resp BP BP Pulse Ox 02/06/24 21:42 75 02/06/24 19:47 192/98 H 02/06/24 19:21 86 19 206/105 H 96 02/06/24 19:00 96 02/06/24 18:00 73 21 177/93 H 98 02/06/24 17:30 76 17 193/97 H 97 02/06/24 17:21 88 L 02/06/24 17:20 78 19 97 02/06/24 17:11 79 15 186/94 H 95 02/06/24 16:45 72 02/06/24 16:32 73 20 188/99 H 98 02/06/24 16:30 71 20 204/102 H 99 02/06/24 15:28 37 C 88 22 172/94 H 99 O2 Del Method O2 Flow Rate 02/06/24 21:42 02/06/24 19:47 02/06/24 19:21 Room Air 02/06/24 19:00 Room Air 02/06/24 18:00 02/06/24 17:30 02/06/24 17:21 Nasal Cannula 0 02/06/24 17:20 02/06/24 17:11 0 02/06/24 16:45 02/06/24 16:32 02/06/24 16:30 02/06/24 15:28 Room Air Diagnostic Findings Laboratory Results WBC 7.24 K/ul (4.8-10.8) 02/06/24 15:43 RBC 3.83 M/uL (4.20-5.40) L 02/06/24 15:43 Hgb 11.2 g/dl (12.0-16.0) L 02/06/24 15:43 Hct 31.6 % (37.0-47.0) L 02/06/24 15:43 MCV 82.5 fL (80.0-100.0) 02/06/24 15:43 MCH 29.2 pg (25.0-34.0) 02/06/24 15:43 MCHC 35.4 g/dL (32.0-36.0) 02/06/24 15:43 RDW Std Deviation 39.0 fL (36.4-46.3) 02/06/24 15:43 RDW Coeff of Angela 12.9 % (11.5-14.5) 02/06/24 15:43 Plt Count 460 K/uL (130-400) H 02/06/24 15:43 MPV 9.2 fL (9.4-12.4) L 02/06/24 15:43 Immature Gran % (Auto) 0.3 % 02/06/24 15:43 Neut % (Auto) 69.2 % 02/06/24 15:43 Lymph % (Auto) 22.8 % 02/06/24 15:43 Perry % (Auto) 7.5 % 02/06/24 15:43 Eos % (Auto) 0.1 % 02/06/24 15:43 Baso % (Auto) 0.1 % 02/06/24 15:43 Neut # (Auto) 5.01 K/uL (1.40-6.50) 02/06/24 15:43 Lymph # (Auto) 1.65 K/uL (1.20-3.40) 02/06/24 15:43 Perry # (Auto) 0.54 K/uL (0.11-0.59) 02/06/24 15:43 Eos # (Auto) 0.01 K/uL (0.00-0.50) 02/06/24 15:43 Baso # (Auto) 0.01 K/uL (0.00-0.20) 02/06/24 15:43 Immature Gran # (Auto) 0.02 K/uL (0.01-0.20) 02/06/24 15:43 Sodium 126 mmol/L (136-145) L 02/06/24 15:43 Potassium 3.5 mmol/L (3.5-5.1) 02/06/24 15:43 Chloride 92 mmol/L (98-107) L 02/06/24 15:43 Carbon Dioxide 23 mmol/L (21-32) 02/06/24 15:43 Anion Gap 11 (3-11) 02/06/24 15:43 BUN 11 mg/dl (6-23) 02/06/24 15:43 Creatinine 0.70 mg/dl (0.6-1.2) 02/06/24 15:43 Est Cr Clr Drug Dosing Not Reportable 02/06/24 15:43 Est GFR ( Amer) 96.9 ml/min 02/06/24 15:43 Est GFR (Non-Af Amer) 83.6 ml/min 02/06/24 15:43 BUN/Creatinine Ratio 15.7 (10-20) 02/06/24 15:43 Glucose 123 mg/dl (70-99(Fasting)) H 02/06/24 15:43 Calcium 9.5 mg/dl (8.6-10.3) 02/06/24 15:43 Magnesium 1.5 mg/dl (1.7-2.4) L 02/06/24 15:43 Total Bilirubin 0.4 mg/dl (0.2-1.0) 02/06/24 15:43 AST 14 U/L (13-39) 02/06/24 15:43 ALT 10 U/L (7-52) 02/06/24 15:43 Alkaline Phosphatase 53 U/L (34-104) 02/06/24 15:43 Total Protein 7.6 gm/dl (6.0-8.3) 02/06/24 15:43 Albumin 4.0 gm/dl (3.4-5.0) 02/06/24 15:43 Globulin 3.6 gm/dl (2.5-4.0) 02/06/24 15:43 Albumin/Globulin Ratio 1.1 (0.9-2) 02/06/24 15:43 Procalcitonin < 0.02 ng/ml (0-0.5) 02/06/24 15:43 Adenovirus (PCR) Not Detected (NotDetected) 02/06/24 Unknown B. pertussis DNA (PCR) Not Detected (NotDetected) 02/06/24 Unknown B.parapertussis DNA PCR Not Detected (NotDetected) 02/06/24 Unknown C. pneumoniae DNA (PCR) Not Detected (NotDetected) 02/06/24 Unknown Coronavirus OC43 (PCR) Not Detected (NotDetected) 02/06/24 Unknown Coronavirus HKU1 (PCR) Not Detected (NotDetected) 02/06/24 Unknown Coronavirus 229E (PCR) Not Detected (NotDetected) 02/06/24 Unknown SARS-CoV-2 (PCR) Not Detected (NotDetected) 02/06/24 Unknown Coronavirus NL63 (PCR) Not Detected (NotDetected) 02/06/24 Unknown Human Metapneumovir PCR Not Detected (NotDetected) 02/06/24 Unknown Influenza Type A (PCR) Not Detected (NotDetected) 02/06/24 Unknown Influenza Type B (PCR) Not Detected (NotDetected) 02/06/24 Unknown M. pneumoniae (PCR) Not Detected (NotDetected) 02/06/24 Unknown Parainfluenza 1 (PCR) Not Detected (NotDetected) 02/06/24 Unknown Parainfluenza 2 (PCR) Not Detected (NotDetected) 02/06/24 Unknown Parainfluenza 3 (PCR) Not Detected (NotDetected) 02/06/24 Unknown Parainfluenza 4 (PCR) Not Detected (NotDetected) 02/06/24 Unknown RSV (PCR) Not Detected (NotDetected) 02/06/24 Unknown Entero/Rhino (PCR) Not Detected (NotDetected) 02/06/24 Unknown Impressions Lumbar Spine CT 02/06/24 17:[address] WITH CONTRAST CLINICAL HISTORY: Right groin pain; recent lumbar surgery COMPARISON STUDY: Lumbar spine CT January 25, 2024. Lumbar spine MRI January 27, 2024. Lumbar spine fluoroscopic images January 28, 2024. TECHNIQUE: Axial images of the lumbar spine were obtained following intravenous injection of 91 cc of Optiray 320 IV. Sagittal and coronal reconstructions were viewed. Automated exposure control was utilized for the study. A dose lowering technique was utilized adhering to the principles of ALARA. FINDINGS: For purposes of numbering on this exam, the L5-S1 disc space is assigned to axial image 351 of 383. When utilizing this numbering scheme, L5 represents a transitional vertebra. The left aspect of L5 is hemisacralized. This corresponds to the numbering scheme on prior CT and lumbar spine MRI. There are postoperative findings consistent with interval L1-L2 decompression, discectomy and bilateral pedicle screw fusion. The hardware is intact. There are no unexpected radiopaque foreign bodies. The central canal and neural foramen are suboptimally assessed given CT technique and are better depicted on previous MRI of January 27, 2024. A small rim-enhancing fluid collection measuring 1.7 x 1 cm along the right posterior aspect of the spine at the L2-L3 level is noted. A tiny left-sided fluid collection is noted on image 234 of 383. No additional fluid collections are noted. These collections were not evident on prior CT and MRI. There are no lumbar spine fractures. Severe disc space narrowing at T12/L1 is again noted. IMPRESSION: 1. Status post L1-L2 decompression and fusion. Hardware intact. No unexpected radiopaque foreign bodies. 2. No lumbar spine fractures. 3. Small rim-enhancing posterior paraspinal fluid collections at the L2-L3 level, right larger than left, as described above. These may be postsurgical or degenerative in etiology. Sterility cannot be assessed by CT. 4. Multilevel degenerative changes within the lumbar spine. Suboptimal evalu ation of the central canal and neural foramen given CT technique and artifact from the surgical hardware. ACT 112: Negative or not required by law. Electronically signed by: Rick Herrmann M.D. 02/06/2024 7:27 PM ECG Additional Comments: ECG accelerated junctional rhythm with a rate of 81. Code Status & VTE Plan VTE Prophylaxis Plan VTE Prophylaxis will be ordered: Yes
[2024-02-06] MEDS: lisinopril 20 MG TAB PO STA (22:12)
[2024-02-06] MEDS ORDERED: LABETALOL HCL IV 5 MG/ML 20ML IV PRN (22:59)
[2024-02-06] MEDS ORDERED: LIDOCAINE 5% 1 PATCH TD PRN (22:59)
[2024-02-06] MEDS ORDERED: NITROGLYCERIN SL 0.4 MG/TAB TAB SL PRN (22:59)
[2024-02-06] MEDS: HYDROmorphone INJ 0.5 MG/0.5 ML SYR IV PRN (23:11)
[2024-02-06] MEDS: MAGNESIUM SULFATE / D5W 1 GM/100 ML BAG IV ONE (23:12)
[2024-02-06] MEDS ORDERED: BETAMETHASONE VAL 0.1% CR 15 GM TOP PRN (23:56)
[2024-02-06 23:57] LABS: Appearance Urine Clear (Clear); Bacteria Urine Automated None Seen (None Seen); Bilirubin Urine Negative (Negative); Blood Urine Negative (Negative); Cast Urine Automated 0-2 /lpf (0-2); Color Urine Yellow; Epithelial Cell Urine Auto 0-2 /hpf (0-2); Glucose Urine UA Negative (Negative); Ketones Urine Trace (Negative); Leukocyte Esterase Urine 1+ (Negative); Nitrite Urine Negative (Negative); Protein Urine Negative (Negative); RBC Urine Automated 0-2 /hpf (0-2); Specific Gravity Urine 1.028 (1.000-1.030); Urobilinogen Urine Negative (Negative); WBC Urine Automated 0-5 /hpf (0-5)
[2024-02-07] MEDS: ACETAMINOPHEN 325 MG TAB PO PRN (02:23)
[2024-02-07 05:45] LABS: Basophils # (auto) 0.02 K/uL (0.00-0.20); Basophils % (auto) 0.3 %; Eosinophils # (auto) 0.06 K/uL (0.00-0.50); Hematocrit (blood only) 30.4 % (37.0-47.0); Hemoglobin 10.7 g/dl (12.0-16.0); Immature Granulocytes # (auto) 0.01 K/uL (0.01-0.20); Immature Granulocytes % (auto) 0.2 %; Lymphocytes # (auto) 1.92 K/uL (1.20-3.40); Lymphocytes % (auto) 33.5 %; Mean Corpuscular Hemoglobin 29.4 pg (25.0-34.0); Mean Corpuscular Hgb Conc 35.2 g/dL (32.0-36.0); Mean Corpuscular Volume 83.5 fL (80.0-100.0); Monocytes # (auto) 0.63 K/uL (0.11-0.59); Neutrophils # (auto) 3.09 K/uL (1.40-6.50); Platelet Count 383 K/uL (130-400); RDW Coefficient of Variation 12.9 % (11.5-14.5); RDW Standard Deviation 39.4 fL (36.4-46.3); Red Blood Count 3.64 M/uL (4.20-5.40); White Blood Count 5.73 K/ul (4.8-10.8)
[2024-02-07 05:53] LABS: BUN Creatinine Ratio 17.6 (10-20); Calcium 8.7 mg/dl (8.6-10.3); Creatinine Clr Calc Pharmacy 80.3 ml/min; Est GFR (African American) 107.5 ml/min; Est GFR (Non-African American) 92.8 ml/min; Magnesium 1.9 mg/dl (1.7-2.4); Potassium 3.5 mmol/L (3.5-5.1)
--- NOTE | 2024-02-07 06:42 | Electrocardiogram Report ---
Test Reason : Blood Pressure : / mmHG Vent. Rate : 081 BPM Atrial Rate : 000 BPM P-R Int : 000 ms QRS Dur : 080 ms QT Int : 384 ms P-R-T Axes : 000 050 054 degrees QTc Int : 446 ms Normal sinus rhythm When compared with ECG of 26-JAN-2024 10:08, No significant change Confirmed by Montez Peterson ([id number]) on 02/07/2024 6:42:16 AM Referred By: Confirmed By:Montez Peterson
--- OUTSIDE RECORDS SUMMARY | 2024-02-07 08:09 | External Medical Summary | Summary of Care ---
Author Name Unknown Organization [facility] Address [address] [address] Phone [phone] Care Team Providers Care Child Life Therapist Name Role Phone Brook Boucher DO Primary Care Provider Reason for Visit * Reason Onset Date Comments Advice 01/26/2024 Asking for direc t admit from PCP Encounter Details Date Type Department Care Team (Late st Contact Info) Description 01/26/2024 Telephone Family Practice [facility] [address] [facility] [place] [address] Brook Boucher DO [address] [facility] [place] [address] Advice (Asking for direct admit from PCP) Allergies Active Allergy Reactions Criticality Noted Date Comments Codeine-Guaifenesin Nausea/vomiting 09/25/2010 Erythromycin Base Hives 07/05/2009 Morphine High 04/01/2022 Other reaction(s): SEVERE NAUSEA AND VOMITING Oxycodone High 04/01/2022 Other reaction(s): INCREASES B/P, HIVES Prednisone Hypertension 09/25/2010 Tramadol Hcl Nausea/vomiting 04/17/2010 documented as of this encounter (statuses as of 01/26/2024) Medications Medication Sig Dispensed Refills Start Date End Date Status NEXIUM 40 MG PO CPDRIndications:in am Take by mouth. 0 Active ASPIR-81 81 MG PO TBEC one a day 0 Active FLONASE 50 MCG/ACT NA SUSPIndications:Regan rgic rhinitis,Postnasal drip Two sprays each nostril once daily 1 Bottle 11 07/10/2011 Active Additional Information Patient taking differently:Nasal,Indications: as needed, Reported on 11/05/2022 CALCIUM + D3 600-200 MG-UNIT PO TABS Take 1 Tablet by mouth in the morning. 0 Active SLOW-MAG 535 (64 MG) MG PO TBCR 143mg at night 0 Active Brimonidine Tartrate 0.1 % Ophthalmic Solution Instill 1 Drop into both eyes in the morning and 1 Drop before bedtime. 0 Active dorzolamide-timolol (COSOPT OCUMETER PLUS) 2.23-0.68% ophthalmic solution Instill 1 Drop into both eyes in the morning and 1 Drop before bedtime. 0 Active Vitamin C 1000 MG Oral Tablet Take 1 Tablet by mouth in the morning and 1 Tablet before bedtime. 0 04/01/2022 Active [place]-3 500 MG Oral Capsule Take by mouth 500 mg 2 times a day . 0 04/01/2022 Active Ibuprofen 600 MG Oral Tablet (Motrin) Take 1 Tablet by mouth every 8 hours as needed (post op pain). With meals. 20 Tablet 0 11/08/2022 Active Brimonidine Tartrate 0.15 % Ophthalmic Solution (Alphagan P) INSTILL 1 DROP INTO EACH EYE TWICE DAILY 0 01/14/2023 Active Meloxicam 15 MG Oral Tablet TAKE 1 TABLET BY MOUTH IN THE MORNING FOR PAIN 90 Tablet 2 05/12/2023 Active Betamethasone Dipropionate 0.05 % External Lotion (Diprosone)Indicatio ns:Other eczema Apply topically to affected area 2 times a day. Apply to scalp and elbows 60 mL 3 12/11/2023 Active Lisinopril 20 MG Oral Tablet (Prinivil)Indication s:in evening Take 1 Tablet by mouth every evening. 90 Tablet 3 12/11/2023 Active documented as of this encounter (statuses as of 01/26/2024) Active Problems Problem Noted Date Diagnosed Date Stage 3a chronic kidney disease 11/12/2023 History of deep vein thrombosis (DVT) of lower e xtremity 06/02/2023 History of pulmonary embolism 06/02/2023 Hx of nonmelanoma skin cancer 01/07/2023 Overview: basal cell carcinoma (L shoulder 2006) Obesity, Class I, BMI 30.0-34.9 (see actual BMI) 04/07/2022 Moderate episode of recurrent major depressive d isorder 11/12/2021 Solitary rectal ulcer syndrome 11/12/2021 Moderate obstructive sleep apnea 07/17/2015 Overview: AHI 25.2 per HST on 06/28/2015 Cervical disc disorder with myelopathy 2 Overview: C6-C7 HTN, goal below 130/80 Gastroesophageal reflux disease with esophagitis Overview: sees Dr. Thao at [facility] for f/u Glaucoma Overview: sees Dr. Jansen documented as of this encounter (statuses as of 01/26/2024) Resolved Problems Problem Noted Date Diagnosed Date Resolved Date Cortical age-related cataract of both eyes 11/12/2021 04/07/2022 Nocturnal hypoxemia 05/02/2020 04/07/20 22 Pulmonary embolism 12/31/2018 9 Overview: related to OCPs Encounter for examination fo r normal comparison and control in clinical research program 06/22/2018 05/01/2020 Overview: DO NOT DELETE [facility] DETECT Study: Project # [id number], Chief Executive Or Managing Director: Phong Castillo, PhD. SUMMARY: Goal: Establish test characteristics (sensitivity, specificity, PPV, NPV) of a circulating tumor DNA (ctDNA)-based test for cancer. Hypothesis: Circulating tumor DNA (ctDNA) and elevated protein biomarkers (together, the marker panel) can be detected in asymptomatic individuals with early cancer. Specific Aim 1: Determine the prevalence of a positive marker panel test in a prospective clinical cohort of 10,000 asymptomatic women ages 65 to 75 years. Specific Aim 2: Determine the sensitivity, specificity, positive predictive value (PPV) and negative predictive value (NPV) of a marker panel test to identify histologically proven cancers that develop within 5-years of the marker panel evaluation. CONTACTS: During normal business hours, contact study staff at ; after hours Chief Executive Or Managing Director via the [facility] glass rolling machine operator . Please contact study team before resolving/deleting from patients problem list. Study phone number: [phone]. Diagnosis changed due to Research Module. Go to Snapshot for study details. Encounter for examination fo r normal comparison and control in clinical research program 06/22/2018 05/30/2022 Overview: DO NOT DELETE - [facility] Study: Project # [id number], Chief Executive Or Managing Director: Jomar Castrejon, MS, MPH. SUMMARY: Goal: Establish test characteristics (sensitivity, specificity, PPV, NPV) of a circulating tumor DNA (ctDNA)-based test for cancer. - Hypothesis: Circulating tumor DNA (ctDNA) and elevated protein biomarkers (together, the marker panel) can be detected in asymptomatic individuals with early cancer. - Specific Aim 1: Determine the prevalence of a positive marker panel test in a prospective clinical cohort of 10,000 asymptomatic women ages 65 to 75 years. - Specific Aim 2: Determine the sensitivity, specificity, positive predictive value (PPV) and negative predictive value (NPV) of a marker panel test to identify histologically proven cancers that develop within 5-years of the marker panel evaluation. - CONTACTS: During normal business hours, contact study staff at ; after hours Chief Executive Or Managing Director via the [facility] glass rolling machine operator . - Please contact study team before resolving/deleting from patients problem list. Study phone number: [phone]. Diagnosis changed due to Research Module. Go to Snapshot for study details. Hot flashes not due to menopause 03/26/2016 04/07/2022 BMI 35-39 ISOLATED (SEE ACTUAL BMI) 03/12/2010 11/12/2021 Overview: Per Obesity Protocol, #19 Hypothyroidism 10/10/2009 Allergic rhinitis 03/23/2019 Osteoarthrosis 04/07/2022 documented as of this encounter (statuses as of 01/26/2024) Immunizations Name Administration Dates Next Due COVID-19 mRNA, LNP-s, No Pre serve, 2-Dose Series ([employer]) 08/16/2021,11/23/2020,11/16/2020,11/01 Covid-19, Mrna, Lnp-s, Pf, B ivalent, 30 Mcg, IM, 12 yrs and above (Pfizer) 07/18/2022 H1N1 2009 Influenza, IM 10/04/2009 Pneumococcal Conjugate Vacc, 13 Valent (Prevnar) 11/28/2014 Pneumococcal Polysaccharide PPV23 (Pneumovax) 09/09/2016,10/23/2011 Season Influenza, Quad, PF, Adjuvanted, 65+ Yrs, IM (FLUAD) 07/03/2022,06/12/2020 Seasonal Influenza, PF, 6 M & above, IM , (FluLaval or Fluzone) 07/02/2019,06/30/2018 Seasonal Influenza, Split, I IV3, With Preserve, Inj 06/17/2016,05/31/2015,07/21/2014,07/15,07/11/2011,10/04/2009 Seasonal Influenza, Trivalen t, Adjuvanted, 65+ yrs 09/10/2021 Seasonal Influenza, Trivalen t, High Dose, No Preserve, IM 06/20/2017 TDAP (age 10 and older)(Boostrix) 06/13/2022 TDAP (age 11 and older)(Adacel) 07/04/2010 documented as of this encounter Social History Tobacco Use Types Packs/Day Years Used Date Smoking Tobacco: Never Smokeless Tobacco: Never Alcohol Use Standard Drinks/Week Comments No 0 (1 standard drink = 0.6 oz pur e alcohol) PHQ-2 Answer Date Recorded PHQ Adult Total Score 0 10/30/2022 Sex and Gender Information Value Date Recorded Sex Assigned at Female 06/18/2021 12:42 PM EDT Gender Identity Female 06/18/2021 12:42 PM EDT Sexual Orientation Straight 06/18/2021 12 :42 PM EDT Job Start Date Occupation Industry Not on file Not on file Not on file documented as of this encounter Miscellaneous Notes * Telephone Encounter - Narcisa Doyle LPN - 01/26/2024 12:46 PM EDT See other encounter * Telephone Encounter - Jasmyn Painting OSA - 01/26/2024 7:23 AM EDT Rosalia patients daughter calling , she is going to call the ambulance , patient cannot keep any food down , patient cannot get out of bed ,patient in a lot of pain , patients daughter Rosalia is asking ifJett Boucher can get her a direct admit to [facility] , please contact [phone] or [phone] documented in this encounter Plan of Treatment Upcoming Encounters Date Type Department Care Team (Late st Contact Info) Description 02/02/2024 1:15 PM EDT Office Visit Urogynecology Alejandra Curran [address] [place] [address] Chau Zendejas MD [address] [place] [address] Nurse Kathie Curran [address] [place] [id number] 06/28/2024 1:40 PM EDT Office Visit Family Practice [facility] [address] [facility] [place] [address] Brook Boucher, [address] [facility] [place] [address] Health Maintenance Due Date Last Done Comments CKD PHOS USE SMARTSET 65057 1964 Zoster Vaccines (1 of 2) 1996 COVID-19 Vaccine ( season) 2023 07/18/2022, 08/16/2021, 11/23/2020, Additional history exists Albumin/Creatinine Ratio 05/09/2024 05/09/2023 GFR 05/12/2024 11/12/2023, 04/29, 10/30/2022, Additional history exists Influenza Vaccine (FLU shot) (Season Ended) 2024 07/03/2022, 09/10/2021, 06/12/2020, Additional history exists CKD HGB USE SMARTSET 67824 11/12/202411/12, 2023, 10/30/2022, Additional history exists DXA Scan 05/13/2029 05/13/2022, 04/29, 08/06/2018, Additional history exists DTaP,Tdap,and Td Vaccines (3 - Td or Tdap) 06/13/2032 06/13/2022, 07/04/2010 Pneumococcal Vaccine: 65+ Years Completed 09/09/2016, 11/28/2014, 10/23/2011 GARDASIL-HPV IMMUNIZATION SERIES Aged Out No longer eligible based on patient's age to complete this topic Hepatitis B Aged Out No longer eligi ble based on patient's age to complete this topic MENINGOCOCCAL (MENACTRA/MENVEO) Aged Out No longer eligible based on patient's age to complete this topic documented as of this encounter Medical Devices Implanted Type Area Joggle Press Operator Device Identifier Shelf Expiration Date Model / Serial / Lot Desara One Single Incision Sling System Implanted:Qty: 1 on 11/08/2022 by Chau Zendejas MD at [facility] N/A: Pelvis [employer] 09/27/2023 [id number] / / [id number] documented as of this encounter Advance Directives Latest Code Status on File Code Status Date Activated Date Inactivated Comments Full Code 11/08/2022 12:06 PM 11/08/2022 7:10 PM This order reflects the patients wishes and were consensually agreed upon. Question Answer Comments Discussion of Advance Directives occurred with: Patient Does the patient have a Living Will? No Does the patient have Health Care Power of Nut Tapper? No Care Teams Child Life Therapist Relationship Specialty Start Date End Date Brook Boucher DO [address] [place] [address] PCP - General Family Medicine 03/18/17 documented as of this encounter
[2024-02-07] MEDS: PANTOprazole 40 MG TAB PO SCH (08:18)
[2024-02-07] MEDS: DORZOLAMIDE/TIMOLOL 22.3/6.8MG/ML 10 ML BTL OPB SCH (08:19)
[2024-02-07] MEDS: BRIMONIDINE TARTRATE-P 0.15% 5 ML BTL OPB SCH (08:19)
[2024-02-07] MEDS: ASPIRIN 81 MG ECTAB PO SCH (08:19)
[2024-02-07] MEDS: CALCIUM 600MG + VIT D 400 IU TAB PO SCH (08:19)
[2024-02-07] MEDS: ONDANSETRON INJ 2 MG/ML 2 ML VIAL IV PRN (09:06)
[2024-02-07] MEDS: KETOROLAC TROMETHAMINE 15 MG/ML VIAL IV PRN (11:19)
[2024-02-07 11:24] LABS: BUN Creatinine Ratio 21.3 (10-20); Creatinine Clr Calc Pharmacy 87.1 ml/min; Est GFR (African American) 110.4 ml/min; Est GFR (Non-African American) 95.3 ml/min; Potassium 3.9 mmol/L (3.5-5.1)
[2024-02-07] MEDS: ACETAMINOPHEN 325 MG TAB PO SCH (12:31)
[2024-02-07] MEDS: SCOPOLAMINE 1 MG/72 HR TDSY PATCH TD SCH (12:31)
--- NOTE | 2024-02-07 12:58 | Orthopedic Consultation ---
Date of Service February 07, 2024 History of Present Illness Reason for Consultation: Right groin and anterior thigh pain, nausea and vomiting. Requesting Physician: . Attending Physician: Vera Roque MD 78-year-old female who has a significant past medical history of HTN, GERD, CHANEL, solitary rectal ulcer syndrome, cervical disc disorder with myopathy, glaucoma, history of DVT/PE and obesity, status post L1-2 instrumentation and fusion and decompression from January 27, [address] Castro, for acute on chronic pain and discharged home. The patient return to the emergency room due to weakness, severe back pain radiating to right groin and right leg and ambulatory dysfunction and poor oral intake. Currently daughter is living with the patient and reports that the patient was improved for several days after the surgery, but since last Friday she is having a lot of pain in the right groin region radiating to right thigh region and not able to ambulate and feeling weak and not able to eat because of nausea and for this reason she was brought in back today. In the ER labs showed sodium 126 , mag of 1.5. Not moving her bowels much because not eating much and not micturating much . As per daughter today she had a fever 100.1 degrees. In the ER she is afebrile. Denies any abdominal pain. Currently nausea improved with antiemetics. Denies chest pain or shortness of breath. No headache. No earache or runny nose or sore throat. Hemodynamics are okay. Exam today reveals the patient's incision site to be unremarkable, there is no findings of fluctuance or anything to indicate an infectious process. Left leg motor exam was unremarkable, on the right side the patient is able to flex and extend the hip with what I think is appropriate motor strength only compromised secondary to some pain in around the groin and limited in the lower lumbar spine. She has intact EHL ankle plantar dorsiflexion and knee extension stren gth on the right. LUMBAR SPINE CT WITH CONTRAST, February 06, 2024 CLINICAL HISTORY: Right groin pain; recent lumbar surgery COMPARISON STUDY: Lumbar spine CT January 25, 2024. Lumbar spine MRI January 27, 2024. Lumbar spine fluoroscopic images January 28, 2024. TECHNIQUE: Axial images of the lumbar spine were obtained following intravenous injection of 91 cc of Optiray 320 IV. Sagittal and coronal reconstructions were viewed. Automated exposure control was utilized for the study. A dose lowering technique was utilized adhering to the principles of ALARA. FINDINGS: For purposes of numbering on this exam, the L5-S1 disc space is assigned to axial image 351 of 383. When utilizing this numbering scheme, L5 represents a transitional vertebra. The left aspect of L5 is hemisacralized. This corresponds to the numbering scheme on prior CT and lumbar spine MRI. There are postoperative findings consistent with interval L1-L2 decompression, discectomy and bilateral pedicle screw fusion. The hardware is intact. There are no unexpected radiopaque foreign bodies. The central canal and neural foramen are suboptimally assessed given CT technique and are better depicted on previous MRI of January 27, 2024. A small rim-enhancing fluid collection measuring 1.7 x 1 cm along the right posterior aspect of the spine at the L2-L3 level is noted. A tiny left-sided fluid collection is noted on image 234 of 383. No additional fluid collections are noted. These collections were not evident on prior CT and MRI. There are no lumbar spine fractures. Severe disc space narrowing at T12/L1 is again noted. IMPRESSION: 1. Status post L1-L2 decompression and fusion. Hardware intact. No unexpected radiopaque foreign bodies. 2. No lumbar spine fractures. 3. Small rim-enhancing posterior paraspinal fluid collections at the L2-L3 level, right larger than left, as described above. These may be postsurgical or degenerative in etiology. Sterility cannot be assessed by CT. 4. Multilevel degenerative changes within the lumbar spine. Suboptimal evaluation of the central canal and neural foramen given CT technique and artifact from the surgical hardware. Review of CT scan images from February 06, 2024 was performed, this is my separate interpretation, this reveals the instrumentation and cage placement to be in proper position at L1-2, no notable findings relative to fracture or other obstructions. There is degenerative changes and some retrolisthesis at T12 and L1. WBC in the normal range at 5.73 Impression: Patient is 10 days status post surgery as stated with a combination of some return of preoperative symptoms in the right groin and right anterior thigh, nausea and vomiting. Plan: Today I had a lengthy discussion with that only the patient but the daughter and another family member, we reviewed the complaints which the patient states are similar or somewhat similar to her prior symptoms that were relieved with the surgery. At this time I related that it would be reasonable and appropriate to obtain an MRI to see if there is any other specific findings beyond what is imaged with a CT scan. An issue at this time is the continued nausea and pain, I recommended a scopolamine patch for the nausea, and the family relates that the patient did tolerate Dilaudid in the emergency room, perhaps we can revisit that medication to help with the pain along with a muscle relaxer to allow us to obtain reasonable MRI images. I will put forth these recommendations and try to talk with the hospitalist regarding these suggestions. Allergies Allergy/AdvReac Type Severity Reaction Status Date / Time erythromycin base Allergy Intermediate RASH Verified 02/06/24 17:28 Opioids - Morphine Analogues Allergy Intermediate increased Verified 02/06/24 17:28 BP, hives oxycodone [From Percocet] Allergy Intermediate INCREASES Verified 02/06/24 17:28 B/P, HIVES morphine AdvReac Severe SEVERE Verified 02/06/24 17:28 NAUSEA AND VOMITING prednisone AdvReac Severe "STEROIDS" Verified 02/06/24 17:28 = "EXTREME HEADACHE AND HEART PALPITATIONS" codeine [From Guiatuss AC] AdvReac Intermediate N/V Verified 02/06/24 17:28 guaifenesin AdvReac Intermediate N/V Verified 02/06/24 17:28 [From [facility] ] tramadol AdvReac Intermediate nausea and Verified 02/06/24 17:28 vomit Home Medications Medication Instructions Recorded Confirmed Type aspirin 81 mg tablet,delayed 81 mg PO QAM 04/01/22 02/06/24 History release brimonidine 0.15 % eye drops 1 drp OPB BID 04/01/22 02/06/24 History calcium citrate 315 mg 1 tab PO QAM 04/01/22 02/06/24 History calcium-vitamin D3 6.25 mcg (250 unit) tablet (Citracal + Vitamin D Maximum) dorzolamide 22.3 mg-timolol 6.8 1 drp OPB BID 04/01/22 02/06/24 History mg/mL eye drops esomeprazole magnesium 20 mg 20 mg PO QAM 04/01/22 02/06/24 History capsule,delayed release (Nexium) krill oil 500 mg capsule 500 mg PO BID 04/01/22 02/06/24 History lisinopril 20 mg tablet 20 mg PO QPM 04/01/22 02/06/24 History magnesium chloride 71.5 mg 71.5 mg PO QPM 04/01/22 02/06/24 History (magnesium chloride) tablet,delayed release (Slow-Mag) betamethasone dipropionate 0.05 % 1 applic topical BID PRN Rash 01/25/24 02/06/24 History lotion lidocaine 5 % topical patch 1 patch topical DAILY PRN pain #15 01/25/24 02/06/24 Rx ea meloxicam 15 mg tablet 15 mg PO QAM 01/25/24 02/06/24 History acetaminophen 650 mg 1,300 mg PO DIRECTED PRN Pain 02/06/24 02/06/24 History tablet,extended release (Tylenol 8 Hour) ibuprofen 200 mg tablet 400 mg PO DIRECTED PRN Pain 02/06/24 02/06/24 History Past Med/Surg History Medical History Lumbar disc herniation with radiculopathy Right L1-2 right foraminal/right far lateral disc protrusion or MRI 01/26/2024 CHANEL on CPAP Hypertension GERD (gastroesophageal reflux disease) Surgical History Hx of unilateral oophorectomy R 2/2 cyst Hx of appendectomy Hx of colonoscopy Hx of esophagogastroduodenoscopy Hx of breast biopsy H/O neck surgery Family History Other Breast cancer Cancer Coronary heart disease Social History Smoking Status: Never smoker Hx Alcohol Use: No Hx Substance Use: No Preferred Language: [place] Communication Ability: Effective Surgeon Partner Required: No Beliefs That Will Affect Care: None Current Living Situation: Alone Other Information That Helps Us Care for You: No Feels Safe at Home: Yes Safety Concerns: Feels Safe At This Time Assistive Devices: Glasses, Hearing Aid - Bilateral and Walker Assistive Devices Comment: pt does not have hearing aids or glasses with her Review of Systems All systems reviewed & are unremarkable except as noted in HPI & below. Physical Exam . Results & Data Results & Data Laboratory Results . Diagnostic Findings . PG Care Time/CCT Total # of Minutes Spent Total Time Spent with Patient: Total time spent is greater than 50% in coordination of care (as documented) at patient's floor/unit and/or counseling patient: Coding Level of Care Code 07388 IN/OBS CONSULT LVL 3,45M
--- NOTE | 2024-02-07 13:06 | Hospitalist Progress Note ---
Date of Service February 07, 2024 Assessment & Plan (1) Right groin pain: Plan: 78-year-old female who has a significant past medical history of HTN, GERD, CHANEL, solitary rectal ulcer syndrome, cervical disc disorder with myopathy, glaucoma, history of DVT/PE and obesity who Recently had back surgery for acute on chronic pain and discharged home comes because of weakness, severe back pain radiating to right groin and right leg and ambulatory dysfunction and poor oral intake. Right groin pain Ambulatory dysfunction Recent back surgery Lumbar spine CT shows small rim enhancing posterior paraspinal fluid collections at the L2-L3 level right greater than left this may be postsurgical or degenerative in etiology. Hardware intact. Ortho evaluation and recs noted Will follow up MRI lumbar Reports allergy to opioid with N, V, hives Will do scheduled tylenol and IV toradol for now Lidocaine patch PT/OT once able to Hyponatremia Sodium 126 SIADH Seen by nephrology last admission And was recommended solid food with high-protein and full restriction of 1500 m ill per day Received fluids in the ER Na is 123 today. Fluid restriction Will follow up nephro eval Obstructive sleep apnea CPAP nightly Hypertension Currently elevated Continue home lisinopril Optimize pain control Start amlodipine 5mg daily for now Obesity Counseling DVT prophylaxis SCDs for now If no surgical procedure needed, will start lovenox sq Disposition Med/telemetry Full code I spent a total of 55 minutes coordinating, documenting and providing care for this patient excluding time spent in performance of separately billed services Admission and Anticipated Discharge Date Admission Date: February 06, 2024 Subjective Patient seen and examined. Reports severe right groin pain. Reports right upper thigh numbness. Reported that she is still right groin pain and thigh numbness prior to the surgery. Reported that since surgery she has been having nausea and vomiting. Reports weakness. Denies any chest pain, cough, shortness of breath, fevers or chills. Had a vomiting episode this AM after getting dilaudid Physical Exam Constitutional: + well hydrated; no acute distress Eyes: PERRL, conjunctivae normal, anicteric sclerae ENMT: external ear and nose normal, oropharynx normal Respiratory: normal respiratory effort, lungs clear to auscultation Cardiovascular: S1 S2 Gastrointestinal (Abdomen): normal bowel sounds, soft, nontender, no hepatosplenomegaly Musculoskeletal: No pedal edema Normal Passive ROM involving both LE Surgical site healing well Neurologic: PERRL, EOMI, accommodation nl, no face palsy, no dysarthria Psychiatric: A+Ox3, euthymic affect Results & Data Results & Data Vital Signs (Past 12 Hours) Vital Signs Temp Pulse Pulse Resp BP BP Pulse Ox 02/07/24 12:33 37.1 C 68 18 179/103 H 96 02/07/24 08:19 36.7 C 70 20 168/83 H 93 02/07/24 08:00 65 02/07/24 02:36 36.6 C 75 18 126/86 99 O2 Del Method O2 Flow Rate 02/07/24 12:33 Room Air 02/07/24 08:19 Room Air 02/07/24 08:00 02/07/24 02:36 Nasal Cannula 2 Laboratory Results Abnormal lab results 02/06/24 02/06/24 02/07/24 Range/Units 15:43 23:30 05:18 RBC 3.83 L 3.64 L (4.20-5.40) M/uL Hgb 11.2 L 10.7 L (12.0-16.0) g/dl Hct 31.6 L 30.4 L (37.0-47.0) % Plt Count 460 H (130-400) K/uL MPV 9.2 L 9.0 L (9.4-12.4) fL [place] # (Auto) 0.63 H (0.11-0.59) K/uL Sodium 126 L 124 L (136-145) mmol/L Chloride 92 L 92 L (98-107) mmol/L Creatinine 0.51 L (0.6-1.2) mg/dl BUN/Creatinine Ratio (10-20) Glucose 123 H 105 H (70-99(Fasting)) mg/dl Osmolality 258 L (280-300) mOsm/kg Magnesium 1.5 L (1.7-2.4) mg/dl Urine Ketones Trace H (Negative) Ur Leukocyte Esterase 1+ H (Negative) Urine Osmolality 472 L (500-800) mOsm/kg 02/07/24 Range/Units 10:52 RBC (4.20-5.40) M/uL Hgb (12.0-16.0) g/dl Hct (37.0-47.0) % Plt Count (130-400) K/uL MPV (9.4-12.4) fL [place] # (Auto) (0.11-0.59) K/uL Sodium 123 L (136-145) mmol/L Chloride 91 L (98-107) mmol/L Creatinine 0.47 L (0.6-1.2) mg/dl BUN/Creatinine Ratio 21.3 H (10-20) Glucose (70-99(Fasting)) mg/dl Osmolality (280-300) mOsm/kg Magnesium (1.7-2.4) mg/dl Urine Ketones (Negative) Ur Leukocyte Esterase (Negative) Urine Osmolality (500-800) mOsm/kg
[2024-02-07] MEDS ORDERED: LORazepam 0.5 MG TAB PO PRN (14:28)
--- NOTE | 2024-02-07 15:01 | Nephrology Consultation ---
Date of Consultation February 07, 2024 Assessment & Plan (1) Chronic hyponatremia: presenting sNa 126 w/ downtrend to 124 this am and by late AM 123. admission w/u c/w SIADH, in the setting of uncontrolled pain, nsaid use. Patient with limited pain control options unfortunately. worsening chronic hypoNa, eg, present > 48 hrs and not currently symptomatic. -Cautious/minimal use of ketorolac; normally for this issue we would avoid nsaids -Gentle IV Lasix >> 20 mg IV now x 1; then gave another dose 1900; she has no horvath; also gave po K 20 mEq po x 3 doses -hold lisinopril until tomorrow since she had IV con and nsaids and now diuretic -will give urea this evening if obligate but try to avoid given N -encouraged high protein intake while here >> boost, cottage cheese; she's having trouble chewing tough foods; consult dietary w/ goal 100 gm minimum protein intake daily and high K -continue FR 1.2 L -continue q6hBMP > max sNa for AM is 130; retimed 1800 lab to later for more effects w/ lasix care coordinated w/ Dr Roque regarding labs, meds, hyponatremia mgt strategy and we are in agreement. History of Present Illness Reason for Consultation: Hyponatremia Requesting Physician: Dr. Holley Attending Physician: Vera Roque MD History of Present Illness 78-year-old female whom I am asked to evaluate for hyponatremia was admitted last evening for evaluation of right groin pain radiating to her anterior right leg in the wake of recent lumbar surgery after presenting with generalized weakness, ambulatory dysfunction, and poor oral intake Past medical history includes lumbar spine fusion surgery here late last month, cervical disc disorder with myopathy, hypertension, sleep apnea, history of DVT/PE. She has had intermittent hyponatremia as an outpatient usually in the 1 32-1 33 range sodium; has also had consistent mild hyponatremia here. During her recent admission here, presenting sodium was 132 with a range from 126-131 with discharge sodium 130. She was discharged with a recommendation to eat high-protein food and follow fluid limit of 1.5 L daily. While the patient did her best with a high-protein regimen after discharge, she was unable to keep much of anything down orally for 1 to 2 days prior to presentation here she did follow the fluid limit. She had been managing her pain with Tylenol primarily but did add in some Advil 1 or 2 days before presentation here. This was at the advice of U. Her presenting sodium was 126 yesterday afternoon at 4 PM with 124 this morning labs and 123 late morning. Serum osmolality 258. Urine osmolality 472 with a random urine sodium of 152. She was taking ibuprofen as needed prior to admission. She received 2 L normal saline in the ER. Also had IV contrast and a dose of as needed ketorolac late this morning. She is currently on a 1.2 L fluid limit. And is for every 6 hours BMP. Her 2 daughters are at bedside today's the first day that she was able to keep a meal down midday. She has a history of medication allergies/intolerance to tramadol, oxycodone, morphine, prednisone. Currently she still having some right groin pain, ongoing nausea, question slightly increased abdominal girth. No anil edema. No shortness of breath or orthopnea. No palpitations or chest pain. No rash. Allergies Allergy/AdvReac Type Severity Reaction Status Date / Time erythromycin base Allergy Intermediate RASH Verified 02/06/24 17:28 Opioids - Morphine Analogues Allergy Intermediate increased Verified 02/06/24 17:28 BP, hives oxycodone [From Percocet] Allergy Intermediate INCREASES Verified 02/06/24 17:28 B/P, HIVES morphine AdvReac Severe SEVERE Verified 02/06/24 17:28 NAUSEA AND VOMITING prednisone AdvReac Severe "STEROIDS" Verified 02/06/24 17:28 = "EXTREME HEADACHE AND HEART PALPITATIONS" codeine [From [facility] ] AdvReac Intermediate N/V Verified 02/06/24 17:28 guaifenesin AdvReac Intermediate N/V Verified 02/06/24 17:28 [From [facility] ] tramadol AdvReac Intermediate nausea and Verified 02/06/24 17:28 vomit Home Medications Medication Instructions Recorded Confirmed Type aspirin 81 mg tablet,delayed 81 mg PO QAM 04/01/22 02/06/24 History release brimonidine 0.15 % eye drops 1 drp OPB BID 04/01/22 02/06/24 History calcium citrate 315 mg 1 tab PO QAM 04/01/22 02/06/24 History calcium-vitamin D3 6.25 mcg (250 unit) tablet (Citracal + Vitamin D Maximum) dorzolamide 22.3 mg-timolol 6.8 1 drp OPB BID 04/01/22 02/06/24 History mg/mL eye drops esomeprazole magnesium 20 mg 20 mg PO QAM 04/01/22 02/06/24 History capsule,delayed release (Nexium) krill oil 500 mg capsule 500 mg PO BID 04/01/22 02/06/24 History lisinopril 20 mg tablet 20 mg PO QPM 04/01/22 02/06/24 History magnesium chloride 71.5 mg 71.5 mg PO QPM 04/01/22 02/06/24 History (magnesium chloride) tablet,delayed release (Slow-Mag) betamethasone dipropionate 0.05 % 1 applic topical BID PRN Rash 01/25/24 02/06/24 History lotion lidocaine 5 % topical patch 1 patch topical DAILY PRN pain #15 01/25/24 02/06/24 Rx ea meloxicam 15 mg tablet 15 mg PO QAM 01/25/24 02/06/24 History acetaminophen 650 mg 1,300 mg PO DIRECTED PRN Pain 02/06/24 02/06/24 History tablet,extended release (Tylenol 8 Hour) ibuprofen 200 mg tablet 400 mg PO DIRECTED PRN Pain 02/06/24 02/06/24 History Patient History Medical History Lumbar disc herniation with radiculopathy Right L1-2 right foraminal/right far lateral disc protrusion or MRI 01/26/2024 CHANEL on CPAP Hypertension GERD (gastroesophageal reflux disease) Surgical History Hx of unilateral oophorectomy R 2/2 cyst Hx of appendectomy Hx of colonoscopy Hx of esophagogastroduodenoscopy Hx of breast biopsy H/O neck surgery Family History Other Breast cancer Cancer Coronary heart disease Social History Smoking Status: Never smoker Hx Alcohol Use: No Hx Substance Use: No Preferred Language: American Communication Ability: Effective Convict Guard Required: No Beliefs That Will Affect Care: None Current Living Situation: Alone Other Information That Helps Us Care for You: No Feels Safe at Home: Yes Safety Concerns: Feels Safe At This Time Assistive Devices: Glasses, Hearing Aid - Bilateral and Walker Assistive Devices Comment: pt does not have hearing aids or glasses with her Review of Systems 2 Review of Systems: All systems reviewed & are unremarkable except as noted in HPI & below Physical Exam 2 Constitutional: well developed, well nourished, + frail appearing (Lying with head of bed at 15 degrees on room air) and cooperative; no acute distress Eyes: EOM intact bilaterally ENMT: Ears: no external ear abnormality Nose: no external nose abnormality Mouth: + dry oral mucous membranes Neck: no nuchal rigidity Respiratory: normal respiratory effort Auscultation: + diminished lung sounds Cardiovascular: Rate/Rhythm: regular rate and regular rhythm Extremities: n o edema Gastrointestinal (Abdomen): Inspection/Auscultation: normal bowel sounds; abdomen not distended Percussion/Palpation: abdomen soft; abdomen nontender and no ascites Musculoskeletal: Extremities: strength 5/5 throughout (Moves all extremities but limited sensation right groin/thigh) Skin: no rashes, warm and dry Neurologic: cruz, fluent speech, no tremor Psychiatric: Orientation: alert and oriented x 3 Results & Data Vital Signs (Past 12 Hours) Vital Signs Temp Pulse Pulse Resp BP Pulse Ox O2 Del Method 02/07/24 12:33 37.1 C 68 18 179/103 H 96 Room Air 02/07/24 08:19 36.7 C 70 20 168/83 H 93 Room Air 02/07/24 08:00 65 Laboratory Results 02/07/24 05:18 02/07/24 10:52
[2024-02-07] MEDS: amLODIPine BESYLATE 5 MG TAB PO ONE (15:52)
[2024-02-07] MEDS: CYCLOBENZAPRINE HCL 5 MG TAB PO SCH (15:52)
[2024-02-07] MEDS: CHECK SCOPOLAMINE PATCH PLACEMENT SCH (15:52)
[2024-02-07] MEDS: LORazepam 0.5 MG TAB PO PRN (16:15)
--- NOTE | 2024-02-07 17:32 | XRay Report ---
XR KUB/Abdomen 1 view CLINICAL HISTORY: Persistent nausea/vomiting TECHNIQUE: 1 view of the abdomen was obtained. Comparison: Comparison is made to CT abdomen pelvis 01/26/2024 FINDINGS: Lung bases are unremarkable. Degenerative changes are seen in the visualized skeleton. Posterior fixa tion hardware spans L2-L3. The bowel gas pattern is nonobstructive. A moderate amount of stool is not ed within the large bowel. IMPRESSION: Moderate stool burden. Nondilated loops of small bowel are seen. Findings may represent ileus. ACT 112: Negative or not required by law. Electronically signed by: Juan Diego Byrd M.D. 02/07/2024 5:29 PM
[2024-02-07] MEDS: POTASSIUM CHLORIDE CRTAB 20 MEQ TABCR PO SCH (18:01)
[2024-02-07] MEDS: FUROSEMIDE INJ 20 MG/2 ML VIAL IV STA (18:01)
[2024-02-07] MEDS: FUROSEMIDE INJ 20 MG/2 ML VIAL IV ONE (19:48)
[2024-02-07] MEDS: MAGNESIUM CHLORIDE W/CALCIUM 64MG DELAYED REL TAB PO SCH (19:50)
[2024-02-07] MEDS ORDERED: lisinopril 20 MG TAB PO SCH (21:00)
--- NOTE | 2024-02-07 21:00 | Magnetic Resonance Report ---
MR lumbar spine wo con CLINICAL HISTORY: Surgery last week, increasd pain/weakness TECHNIQUE: Multiplanar sequences through the lumbar spine were obtained, without intravenous contrast . Comparison: Comparison is made to MRI lumbar spine 01/27/2024 FINDINGS: Posterior fixation hardware spans L1-L2. L1-L2: No significant abnormality. L2-L3: Broad-based posterior disc bulge results in mild canal stenosis and mild bilateral neural fora reinaldo stenosis. L3-L4: Broad-based posterior disc bulge results in mild canal stenosis. L4-L5: Broad-based posterior disc bulge results in moderate canal stenosis, AP diameter 5 mm, and mil d bilateral neuroforaminal stenosis. L5-S1: No significant abnormality. The spinal ligaments are intact, without evidence of disruption or abnormal signal intensity. The spi nal cord is normal in signal intensity and there is no evidence of cord contusion. There is no eviden ce of an extradural, intradural, extramedullary or intramedullary lesion. Visualized soft tissues are normal. IMPRESSION: Multilevel degenerative changes with up to moderate canal stenosis, AP diameter 5 mm, and mild bilate ral neuroforaminal stenosis. ACT 112: Negative or not required by law. Electronically signed by: Juan Diego Byrd M.D. 02/07/2024 8:58 PM
[2024-02-07] MEDS: POLYETHYLENE (MIRALAX) 17 GM PACK PO STA (21:38)
[2024-02-07] MEDS: bisacodyL 10 MG SUPP PR STA (21:39)
[2024-02-07 22:16] LABS: BUN Creatinine Ratio 22.9 (10-20); Creatinine Clr Calc Pharmacy 58.5 ml/min; Est GFR (African American) 96.9 ml/min; Est GFR (Non-African American) 83.6 ml/min; Potassium 4.1 mmol/L (3.5-5.1)
[2024-02-08 03:28] LABS: Hematocrit (blood only) 29.4 % (37.0-47.0); Hemoglobin 10.3 g/dl (12.0-16.0); Mean Corpuscular Volume 82.8 fL (80.0-100.0); Platelet Count 390 K/uL (130-400); RDW Coefficient of Variation 12.6 % (11.5-14.5); RDW Standard Deviation 38.6 fL (36.4-46.3); Red Blood Count 3.55 M/uL (4.20-5.40); White Blood Count 6.01 K/ul (4.8-10.8)
[2024-02-08 03:32] LABS: BUN Creatinine Ratio 23.9 (10-20); Calcium 9.3 mg/dl (8.6-10.3); Creatinine Clr Calc Pharmacy 57.7 ml/min; Est GFR (African American) 95.2 ml/min; Est GFR (Non-African American) 82.2 ml/min; Magnesium 1.7 mg/dl (1.7-2.4); Phosphorus 3.2 mg/dl (2.5-4.9); Potassium 4.2 mmol/L (3.5-5.1)
[2024-02-08 06:23] LABS: BUN Creatinine Ratio 22.4 (10-20); Calcium 9.3 mg/dl (8.6-10.3); Creatinine Clr Calc Pharmacy 53.7 ml/min; Est GFR (African American) 87.7 ml/min; Est GFR (Non-African American) 75.7 ml/min; Potassium 4.2 mmol/L (3.5-5.1)
[2024-02-08] MEDS: amLODIPine BESYLATE 5 MG TAB PO SCH (08:15)
[2024-02-08] MEDS: LIDOCAINE 5% 1 PATCH TD SCH (08:16)
--- NOTE | 2024-02-08 11:15 | Hospitalist Progress Note ---
Date of Service February 08, 2024 Assessment & Plan (1) Right groin pain: Plan: 78-year-old female who has a significant past medical history of HTN, GERD, CHANEL, solitary rectal ulcer syndrome, cervical disc disorder with myopathy, glaucoma, history of DVT/PE and obesity who Recently had back surgery for acute on chronic pain and discharged home comes because of weakness, severe back pain radiating to right groin and right leg and ambulatory dysfunction and poor oral intake. Right groin pain Ambulatory dysfunction Recent back surgery Lumbar spine CT shows small rim enhancing posterior paraspinal fluid collections at the L2-L3 level right greater than left this may be postsurgical or degenerative in etiology. Hardware intact. MRI lumbar Reviewed. Per Ortho. No specific findings noted on MRI and hardware intact in proper position. Some stenosis at L3-4 but unchanged from preop MRI Lidocaine patch PT/OT Continue scheduled Tylenol. Will stop Toradol for today in view of recent contrast and concern from renal function. Will continue with Dilaudid patient had tolerated before with pretty med with antiemetics as needed Hyponatremia Sodium 126 on admission SIADH Received fluids in the ER Na is 125 today. Nephro recs noted High protein diet Continue fluid restriction Obstructive sleep apnea CPAP nightly Hypertension Home lisinopril on hold per Nephro in view of recent contrast and NSAIDS Optimize pain control Continue amlodipine 5mg daily started inpatient for now Obesity Counseling DVT prophylaxis Hep sq for now Disposition Med/telemetry Full code Updated son at bedside I spent a total of 50 minutes coordinating, documenting and providing care for this patient excluding time spent in performance of separately billed services Admission and Anticipated Discharge Date Admission Date: February 06, 2024 Subjective Patient seen and examined. Still reports right groin pain and right upper thigh numbness. Reports pain is mildly improved Reports no vomiting since yesterday. No nausea at this time Denies any chest pain, cough, shortness of breath, fevers or chills. Reports poor appetite Reports constipation Physical Exam Constitutional: + well hydrated; no acute distress Eyes: PERRL, conjunctivae normal, anicteric sclerae ENMT: external ear and nose normal, oropharynx normal Respiratory: normal respiratory effort, lungs clear to auscultation Cardiovascular: S1 S2 Gastrointestinal (Abdomen): normal bowel sounds, soft, nontender, no hepa tosplenomegaly Musculoskeletal: Surgical site healing well Neurologic: PERRL, EOMI, accommodation nl, no face palsy, no dysarthria Psychiatric: A+Ox3, euthymic affect Results & Data Results & Data Vital Signs (Past 12 Hours) Vital Signs Temp Pulse Pulse Resp BP Pulse Ox O2 Del Method 02/08/24 08:21 76 02/08/24 08:04 36.9 C 82 16 145/79 H 97 Room Air 02/08/24 03:03 36.8 C 73 18 136/77 95 Room Air Laboratory Results Abnormal lab results 02/07/24 02/08/24 02/08/24 Range/Units 21:40 03:01 05:45 RBC 3.55 L (4.20-5.40) M/uL Hgb 10.3 L (12.0-16.0) g/dl Hct 29.4 L (37.0-47.0) % MPV 9.0 L (9.4-12.4) fL Sodium 123 L 124 L 125 L (136-145) mmol/L Chloride 90 L 92 L 91 L (98-107) mmol/L BUN/Creatinine Ratio 22.9 H 23.9 H 22.4 H (10-20)
--- NOTE | 2024-02-08 11:41 | Orthopedic Progress Note ---
Date of Service February 08, 2024 Subjective Patient improved today vs yesterday with less nausea and some decrease in pain. Still with pain indicated in right lower abdomen/groin and numbness anterior right thigh similar to symtoms that were preop and relieved with surgery for several days. Nausea improved with scopolamine patch and over moving to chair and bathroom today. No pain to direct palpation to lower abdomen, no change in motor. MRI reviewed, no specific findings noted, hardware intact and in proper po sition. Some stenosis at L3-4 but unchanged from preop MRI. Plan: Continue with mobilization and pain management, if continues to improve in next day or two can DC home. Review of Systems All systems reviewed & are unremarkable except as noted in HPI & below. Physical Exam . Results & Data Results & Data Laboratory Results . Diagnostic Findings . PG Care Time/CCT Total # of Minutes Spent Total Time Spent with Patient: Total time spent is greater than 50% in coordination of care (as documented) at patient's floor/unit and/or counseling patient: Coding Level of Care Code 56270 SUB INP/OBS CARE 2/35MIN
--- NOTE | 2024-02-08 14:02 | Nephrology Progress Note ---
Date of Service February 08, 2024 Assessment & Plan (1) Chronic hyponatremia: Plan: presenting sNa 126 w/ downtrend to 124 this am and by late AM 123. admission w/u c/w SIADH, in the setting of uncontrolled pain, nsaid use. Patient with limited pain control options unfortunately. worsening chronic hypoNa, eg, present > 48 hrs and not currently symptomatic. -Cautious/minimal use of PRN ketorolac; normally for this issue we would avoid nsaids but pain control options limited >cont lasix 10 mg x 2 doses today >started bid 20 mEq K >started standing lasix 10 mg IV 0600, noon, 1800 starting tomorrow -hold lisinopril until since she had IV con and nsaids and now diuretic and BP ok -will give urea this evening if obligate but try to avoid given N > if still doing ok in AM from N standpoint could trial this -encourage high protein intake while here and at d/c >> boost, cottage cheese; she's having trouble chewing tough foods; appreciate input from dietary w/ goal 100 gm minimum protein intake daily and high K -continue FR 1.2 L for now -changed q6h BMP to one this evening and then in AM > max sNa for AM is 131; care coordinated w/ Dr Roque regarding labs, meds, hyponatremia mgt strategy and we are in agreement. Admission and Anticipated Discharge Date Admission Date: February 06, 2024 Subjective seen on afternoon rounds; pt waiting for pain med she just took to kick in and having lots of R groin pain at eval. less N > taking zofran w/ pain med; following FR. no emesis; tolerating po; had dietary teaching Review of Systems 2 Review of Systems: All systems reviewed & are unremarkable except as noted in Subjective Physical Exam 2 Constitutional: well developed, well nourished, + acute distress (mild from pain), + frail appearing (Lying with head of bed at 15 degrees on room air) and cooperative Eyes: EOM intact bilaterally ENMT: Ears: no external ear abnormality Nose: no external nose abnormality Mouth: + dry oral mucous membranes Neck: no nuchal rigidity Respiratory: normal respiratory effort Auscultation: + diminished lung sounds Cardiovascular: Rate/Rhythm: regular rate and regular rhythm Extremities: n o edema Gastrointestinal (Abdomen): Inspection/Auscultation: normal bowel sounds; abdomen not distended Percussion/Palpation: abdomen soft; abdomen nontender and no ascites Musculoskeletal: Extremities: strength 5/5 throughout (Moves all extremities but limited sensation right groin/thigh) Skin: no rashes, warm and dry Psychiatric: Orientation: alert and oriented x 3 Results & Data Vital Signs (Past 12 Hours) Vital Signs Temp Pulse Pulse Resp BP Pulse Ox O2 Del Method 02/08/24 11:55 37.1 C 76 16 135/73 96 Room Air 02/08/24 08:21 76 02/08/24 08:04 36.9 C 82 16 145/79 H 97 Room Air 02/08/24 03:03 36.8 C 73 18 136/77 95 Room Air Laboratory Results 02/08/24 03:01 02/08/24 05:45
[2024-02-08] MEDS: FUROSEMIDE INJ 20 MG/2 ML VIAL IV SCH (15:07)
[2024-02-08] MEDS: HYDROmorphone INJ 0.5 MG/0.5 ML SYR IV PRN (15:27)
[2024-02-08] MEDS: DOCUSATE SODIUM/SENNA 50/8.6MG TAB PO SCH (16:00)
[2024-02-08 19:19] LABS: BUN Creatinine Ratio 18.7 (10-20); Calcium 9.2 mg/dl (8.6-10.3); Creatinine Clr Calc Pharmacy 29.4 ml/min; Est GFR (African American) 42.3 ml/min; Est GFR (Non-African American) 36.5 ml/min
[2024-02-08] MEDS: POLYETHYLENE (MIRALAX) 17 GM PACK PO PRN (21:19)
[2024-02-08] MEDS: POTASSIUM CHLORIDE CRTAB 20 MEQ TABCR PO SCH (21:21)
[2024-02-08] MEDS: HEPARIN SOD 5,000 UNIT/0.5 ML VIAL SQ SCH (21:21)
[2024-02-09] MEDS: FUROSEMIDE INJ 20 MG/2 ML VIAL IV SCH ×2 (05:05→11:05)
[2024-02-09 08:13] LABS: Hematocrit (blood only) 31.4 % (37.0-47.0); Hemoglobin 10.7 g/dl (12.0-16.0); Mean Corpuscular Hemoglobin 28.8 pg (25.0-34.0); Mean Corpuscular Hgb Conc 34.1 g/dL (32.0-36.0); Mean Corpuscular Volume 84.6 fL (80.0-100.0); Mean Platelet Volume 9.3 fL (9.4-12.4); Platelet Count 444 K/uL (130-400); RDW Coefficient of Variation 13.2 % (11.5-14.5); RDW Standard Deviation 40.2 fL (36.4-46.3); Red Blood Count 3.71 M/uL (4.20-5.40); White Blood Count 6.01 K/ul (4.8-10.8)
[2024-02-09] MEDS ORDERED: ENOXAPARIN INJ 40 MG/0.4 ML SYR SQ SCH (09:00)
[2024-02-09] MEDS ORDERED: HEPARIN SOD 5,000 UNIT/0.5 ML VIAL SQ SCH (09:00)
[2024-02-09 09:12] LABS: Calcium 9.6 mg/dl (8.6-10.3); Creatinine Clr Calc Pharmacy 31.5 ml/min; Est GFR (African American) 45.8 ml/min; Est GFR (Non-African American) 39.5 ml/min; Potassium 4.7 mmol/L (3.5-5.1)
--- NOTE | 2024-02-09 10:33 | Nephrology Progress Note ---
Date of Service February 09, 2024 Assessment & Plan Admission and Anticipated Discharge Date Admission Date: February 06, 2024 Subjective Assessment & Plan (1) Chronic hyponatremia: Plan: Lowest na 123. admission ---SIADH, in the setting of uncontrolled pain, nsaid use. Patient with limited pain control options unfortunately. Cautious/minimal use of PRN ketorolac; normally for this issue we would avoid nsaids but pain control options limited Raise lasix to 20 mg tid. But will also give 1 liter of NS for Solute load. She has too much nausea to give Urea-na. bid 20 mEq K--k is normal now. hold lisinopril until since she had IV contrast and nsaids and now diuretic and BP ok encourage high protein intake while here and at d/c boost, cottage cheese; she's having trouble chewing tough foods appreciate input from dietary w/ goal 100 gm minimum protein intake daily and high K continue FR 1.2 L for now changed to BMP q12 Subjective Review of Systems Review of Systems: All systems reviewed & are unremarkable except as noted in Subjective Physical Exam Constitutional: well developed, well nourished, + acute distress (mild from pain), + frail appearing (Lying with head of bed at 15 degrees on room air) and cooperative Eyes: EOM intact bilaterally ENMT: Ears: no external ear abnormality Nose: no external nose abnormality Mouth: + dry oral mucous membranes Neck: no nuchal rigidity Respiratory: normal respiratory effort Auscultation: + diminished lung sounds Cardiovascular: Rate/Rhythm: regular rate and regular rhythm Extremities: no edema Gastrointestinal (Abdomen): Inspection/Auscultation: normal bowel sounds; abdomen not distended Percussion/Palpation: abdomen soft; abdomen nontender and no ascites Musculoskeletal: Extremities: strength 5/5 throughout (Moves all extremities but limited sensation right groin/thigh) Skin: no rashes, warm and dry Psychiatric: Orientation: alert and oriented x 3 Results & Data Vital Signs (Past 12 Hours) Vital Signs Temp Pulse Pulse Resp BP Pulse Ox O2 Del Method 02/09/24 07:58 36.9 C 83 16 118/76 97 Room Air 02/09/24 07:00 68 02/09/24 03:00 36.8 C 73 18 127/76 96 Room Air 02/08/24 23:17 36.8 C 80 18 107/58 L 92 Room Air 02/08/24 22:32 80
[2024-02-09] MEDS: POLYETHYLENE (MIRALAX) 17 GM PACK PO SCH (11:05)
[2024-02-09] MEDS: traMADol HCL 50 MG TABLET PO PRN (12:06)
[2024-02-09] MEDS: SODIUM CHLORIDE 0.9% 1,000 ML IV SCH (12:10)
--- NOTE | 2024-02-09 12:12 | Hospitalist Progress Note ---
Date of Service February 09, 2024 Assessment & Plan (1) Right groin pain: Plan: 78-year-old female who has a significant past medical history of HTN, GERD, CHANEL, solitary rectal ulcer syndrome, cervical disc disorder with myopathy, glaucoma, history of DVT/PE and obesity who Recently had back surgery for acute on chronic pain and discharged home comes because of weakness, severe back pain radiating to right groin and right leg and ambulatory dysfunction and poor oral intake. Right groin pain Ambulatory dysfunction Recent back surgery Lumbar spine CT shows small rim enhancing posterior paraspinal fluid collections at the L2-L3 level right greater than left this may be postsurgical or degenerative in etiology. Hardware intact. MRI lumbar Reviewed. Per Ortho. No specific findings noted on MRI and hardware intact in proper position. Some stenosis at L3-4 but unchanged from preop MRI Lidocaine patch PT/OT Continue scheduled Tylenol. Will continue with Dilaudid prn severe pain patient had tolerated before with premed with antiemetics as needed Tramadol prn mild/moderate pain. May need premed Hyponatremia Sodium 126 on admission. Dropped to 123 SIADH PATRICIA . Likely due to recent contrast. Monitor renal function Received fluids in the ER Na is 127 today. Nephro recs noted High protein diet On [place] Obstructive sleep apnea CPAP nightly Hypertension Home lisinopril on hold per Nephro in view of recent contrast and NSAIDS Optimize pain control Continue amlodipine 5mg daily started inpatient for now Obesity Counseling DVT prophylaxis Hep sq for now Disposition Med/telemetry Full code Updated son at bedside I spent a total of 40 minutes coordinating, documenting and providing care for this patient excluding time spent in performance of separately billed services Admission and Anticipated Discharge Date Admission Date: February 06, 2024 Subjective Patient seen and examined. Reports right groin pain is improved today. 4/10 Has right thigh numbness No vomiting Denies any chest pain, cough, shortness of breath, fevers or chills. Reports appetite is improving Reports constipation Physical Exam Constitutional: + well hydrated; no acute distress Eyes: PERRL, conjunctivae normal, anicteric sclerae ENMT: external ear and nose normal, oropharynx normal Respiratory: normal respiratory effort, lungs clear to auscultation Cardiovascular: S1 S2 Gastrointestinal (Abdomen): normal bowel sounds, soft, nontender, no hepatosplenomegaly Musculoskeletal: No pedal edema. Power is normal in all extremities Neurologic: PERRL, EOMI, accommodation nl, no face palsy, no dysarthria Psychiatric: A+Ox3, euthymic affect Results & Data Results & Data Vital Signs (Past 12 Hours) Vital Signs Temp Pulse Pulse Resp BP Pulse Ox O2 Del Method 02/09/24 11:25 36.5 C 72 16 121/71 95 Room Air 02/09/24 07:58 36.9 C 83 16 118/76 97 Room Air 02/09/24 07:00 68 02/09/24 03:00 36.8 C 73 18 127/76 96 Room Air Laboratory Results Abnormal lab results 02/08/24 02/09/24 Range/Units 18:41 07:35 RBC 3.71 L (4.20-5.40) M/uL Hgb 10.7 L (12.0-16.0) g/dl Hct 31.4 L (37.0-47.0) % Plt Count 444 H (130-400) K/uL MPV 9.3 L (9.4-12.4) fL Sodium 124 L 127 L (136-145) mmol/L Chloride 89 L 91 L (98-107) mmol/L BUN 26 H 39 H (6-23) mg/dl Creatinine 1.39 H D 1.30 H (0.6-1.2) mg/dl BUN/Creatinine Ratio 30.0 H (10-20) Glucose 132 H (70-99(Fasting)) mg/dl
--- NOTE | 2024-02-09 17:07 | Orthopedic Progress Note ---
Date of Service February 09, 2024 Subjective Patient approaching 2 weeks out from surgery at L1-2, she reports continued improvement. She notes that when she is upright she has less pain in the right groin area, and definitely feels she is improved versus yesterday. No change in motor with intact strength right leg, patient appears more comfortable. MRI review and CT scan review unrevealing for any issues at the operative site. Plan: I talked with the patient, she will continue to do physical therapy, I related to her that if she continues to improve and her symptoms are controlled with medications that she does not have a reaction to, she may be able to discharge at some point in the near future. Review of Systems All systems reviewed & are unremarkable except as noted in HPI & below. Physical Exam . Results & Data Results & Data Laboratory Results . Diagnostic Findings . PG Care Time/CCT Total # of Minutes Spent Total Time Spent with Patient: Total time spent is greater than 50% in coordination of care (as documented) at patient's floor/unit and/or counseling patient: Coding Level of Care Code 43448 SUB INP/OBS CARE 10/23MIN
[2024-02-10 07:24] LABS: Creatinine Clr Calc Pharmacy 40.9 ml/min; Est GFR (African American) 62.9 ml/min; Est GFR (Non-African American) 54.3 ml/min; Potassium 4.5 mmol/L (3.5-5.1)
--- NOTE | 2024-02-10 09:04 | Nephrology Progress Note ---
Date of Service February 10, 2024 Assessment & Plan Admission and Anticipated Discharge Date Admission Date: February 06, 2024 Subjective Assessment & Plan (1) Chronic hyponatremia: Plan: Lowest na 123. admission ---SIADH, in the setting of uncontrolled pain, nsaid use. Patient with limited pain control options unfortunately. Cautious/minimal use of PRN ketorolac; normally for this issue we would avoid nsaids but pain control options limited Continue lasix 20 mg tid. But will also give 1 liter of NS for Solute load. Continue this combo for one more day. She has too much nausea to give Urea-na. renal function and na both better today bid 20 mEq K--k is normal now. hold lisinopril until since she had IV contrast and nsaids and now diuretic and BP ok encourage high protein intake while here and at d/c boost, cottage cheese; she's having trouble chewing tough foods appreciate input from dietary w/ goal 100 gm minimum protein intake daily and high K continue FR 1.2 L for now changed to BMP q day Subjective Review of Systems Review of Systems: All systems reviewed & are unremarkable except as noted in Subjective Physical Exam Constitutional: well developed, well nourished, + acute distress (mild from pain), + frail appearing (Lying with head of bed at 15 degrees on room air) and cooperative Eyes: EOM intact bilaterally ENMT: Ears: no external ear abnormality Nose: no external nose abnormality Mouth: + dry oral mucous membranes Neck: no nuchal rigidity Respiratory: normal respiratory effort Auscultation: + diminished lung sounds Cardiovascular: Rate/Rhythm: regular rate and regular rhythm Extremities: no edema Gastrointestinal (Abdomen): Inspection/Auscultation: normal bowel sounds; abdomen not distended Percussion/Palpation: abdomen soft; abdomen nontender and no ascites Musculoskeletal: Extremities: strength 5/5 throughout (Moves all extremities but limited sensation right groin/thigh) Skin: no rashes, warm and dry Psychiatric: Orientation: alert and oriented x 3 Results & Data Vital Signs (Past 12 Hours) Vital Signs Temp Pulse Pulse Resp BP Pulse Ox O2 Del Method 02/10/24 07:28 36.8 C 69 18 107/68 95 Room Air 02/10/24 07:00 70 02/10/24 04:04 36.8 C 71 20 114/70 92 Room Air 02/09/24 23:42 36.7 C 71 20 113/63 94 Room Air 02/09/24 21:57 65
--- NOTE | 2024-02-10 12:52 | Discharge Summary ---
Date of Service February 10, 2024 Admission HPI Per Admitting Provider 78-year-old female who has a significant past medical history of HTN, GERD, CHANEL, solitary rectal ulcer syndrome, cervical disc disorder with myopathy, glaucoma, history of DVT/PE and obesity who Recently had back surgery for acute on chronic pain and discharged home comes because of weakness, severe back pain radiating to right groin and right leg and ambulatory dysfunction and poor oral intake.Currently daughter is living with the patient. Since discharge she did okay for some time. But since last Friday she is having a lot of pain in the right groin region radiating to right thigh region and not able to ambulate and feeling weak and not able to eat because of nausea and for this reason she was brought in back today. In the ER labs showed sodium 126 , mag of 1.5. Not moving her bowels much because not eating much and not micturating much . As per daughter today she had a fever 100.1 degrees. In the ER she is afebrile. Denies any abdominal pain. Currently nausea improved with antiemetics. Den ies chest pain or shortness of breath. No headache. No earache or runny nose or sore throat. Hemodynamics are okay. Past medical history. As mentioned above Past surgical history. Left breast biopsy. Closure of vagina. Colonoscopy. Cystoscopy. EGD. Cervical spine fusion surgery. Appendectomy. Removal of ovaries. Repair of bladder defect. Social history. No smoking. No alcohol use. No drug use. Family history. Sister breast cancer. Glaucoma. sister had CAD s/p stent and CABG. Father had lung cancer. Mother had heart disorder. Uncle had colon cancer. Admission Exam Per Admitting Provider General- Not in distress. Head- atraumatic Eyes- PERRL. ENT- oropharynx clear Neck- supple, no JVD. Lungs- clear to auscultation no wheezing or crackles. Heart- regular rhythm; no murmur, no gallop. Abdomen- normal bowel sounds, soft, nontender, no distension. Extremities- no pretibial edema, no erythema seen. Neuro- alert, oriented ; PERRL, no facial palsy; no dysarthria; moves extremities. Musculoskeletal- Back surgery site no erythema or swelling seen. b/l Straight leg raise test negative. Principal Diagnosis Right groin pain Hyponatremia Discharge Exam Constitutional + well hydrated; no acute distress Eyes PERRL, conjunctivae normal, anicteric sclerae ENMT external ear and nose normal, oropharynx normal Respiratory normal respiratory effort, lungs clear to auscultation Cardiovascular S1 S2 Gastrointestinal (Abdomen) normal bowel sounds, soft, nontender, no hepatosplenomegaly Musculoskeletal No pedal edema. Surgical site healing well Neurologic PERRL, EOMI, accommodation nl, no face palsy, no dysarthria Psychiatric A+Ox3, euthymic affect Discharge Data Allergies Allergy/AdvReac Type Severity Reaction Status Date / Time erythromycin base Allergy Intermediate RASH Verified 02/06/24 17:28 Opioids - Morphine Analogues Allergy Intermediate increased Verified 02/06/24 17:28 BP, hives oxycodone [From Percocet] Allergy Intermediate INCREASES Verified 02/06/24 17:28 B/P, HIVES morphine AdvReac Severe SEVERE Verified 02/06/24 17:28 NAUSEA AND VOMITING prednisone AdvReac Severe "STEROIDS" Verified 02/06/24 17:28 = "EXTREME HEADACHE AND HEART PALPITATIONS" codeine [From [facility] ] AdvReac Intermediate N/V Verified 02/06/24 17:28 guaifenesin AdvReac Intermediate N/V Verified 02/06/24 17:28 [From [facility] ] tramadol AdvReac Intermediate nausea and Verified 02/06/24 17:28 vomit Consultations 02/06/24 20:19 ED Decision to Admit Stat 02/07/24 07:15 Consult Orthopedic Spine Surgery Routine 02/07/24 08:00 Consult Nephrology Routine Ordered Studies 02/06/24 17:25 CT lumbar spine w con Stat 02/07/24 13:46 MRI Lumbar Spine [MR lumbar spine wo con] Routine Hospital Course (1) Right groin pain: 78-year-old female who has a significant past medical history of HTN, GERD, CHANEL, solitary rectal ulcer syndrome, cervical disc disorder with myopathy, glaucoma, history of DVT/PE and obesity who Recently had back surgery for acute on chronic pain and discharged home comes because of weakness, severe back pain radiating to right groin and right leg and ambulatory dysfunction and poor oral intake. Right groin pain Ambulatory dysfunction Recent back surgery Lumbar spine CT shows small rim enhancing posterior paraspinal fluid collections at the L2-L3 level right greater than left this may be postsurgical or degenerative in etiology. Hardware intact. MRI lumbar Reviewed. Per Ortho. No specific findings noted on MRI and hardware intact in proper position. Some stenosis at L3-4 but unchanged from preop MRI Pain was managed with scheduled tylenol, dilaudid prn and flexeril Discharged on scheduled tylenol, prn po dilaudid for severe pain, flexeril prn Zofran prn nausea and vomiting Has not had any vomiting for the past 48h Tolerating diet better Hyponatremia Sodium 126 on admission. Dropped to 123 SIADH Was managed by [employer] Na improved to 130 today Discussed with [employer] today. Recommends discharge on Lasix 40mg BID and KCl 20meq BID High protein diet Fluid restriction as advised PATRICIA Likely due to recent contrast. Got IVF PATRICIA resolved Obstructive sleep apnea CPAP nightly Hypertension Home lisinopril stopped for now per Nephro in view of recent contrast and NSAIDS BP better controlled now with pain control [employer] Dr Gao advised to discharge only on lasix 40mg BID for now until follow up with him Total Time Total Time Spent Total Time Spent (In Minutes): 35 Total Time Includes: Examination of the Patient, Discharge Planning, Medication Reconciliation, Communication With Other Providers and Other Discharge Plan Discharge Items Patient Disposition: Home - Home Health Services Reason For Visit: WEAKNESS, HYPONATREMIA, BACK PAIN Discharge Diagnosis: Right groin pain Hyponatremia Activity: Resume your previous activity Activity Comment: As recommended by Physical therapy Non-emergency contact: Primary Care Provider Call non-emergency contact if: you have any medication questions and your symptoms worsen Follow-up/Referrals: Brook Boucher DO [Primary Care Provider] - (Date & Time 02/19/2024 11:00 AM Provider Brook Boucher DO Department Family Practice [facility] ) Jarred Gao MD [Surgeon] - (Date & Time 02/16/2024 10:40 AM Provider Jarred Gao MD Department Nephrology, [facility] ) Diet: Heart Healthy Fluids: 1200ml (5 cups) Diet Comment: High protein diet Addtl Attending Provider Instructions: Mrs De Anda You came to the hospital with worsening pain and weakness after recent surgery. You were evaluated and managed for the above. You are being discharged home on home health services/Physical therapy. Please use tylenol scheduled for next 5 days and can change to as needed with pain improvement. You can use low dose dilaudid as needed for severe pain. Please ensure follow up with your Family Doctor and Orthopedic spine surgeon. It was a pleasure taking care of you. Pending Studies at Discharge: No Stand-Alone Forms: My [facility], Smoking Cessation Medications and DC Order Prescriptions: New cyclobenzaprine 5 mg Tablet 5 mg PO TID PRN (Reason: muscle spasm) Qty: 30 0RF hydromorphone [Dilaudid] 2 mg tablet 1 mg PO Q6H PRN (Reason: pain (scale score 7-10)) Qty: 10 0RF potassium chloride 20 mEq Tablet,Er Particles/Crystals 20 meq PO BID Qty: 60 0RF furosemide [Lasix] 40 mg tablet 40 mg PO BID Qty: 60 0RF ondansetron HCl 4 mg tablet 4 mg PO TID PRN (Reason: nausea and vomiting) Qty: 14 0RF polyethylene glycol 3350 [Miralax] 17 gram Powder In Packet 17 g PO DAILY Qty: 14 0RF sennosides-docusate sodium [Senokot-S] 8.6-50 mg Tablet 1 tab PO QAM Qty: 14 0RF Continued aspirin 81 mg Tablet,Delayed Release (Dr/Ec) 81 mg PO QAM Rx Instructions: ON HOLD D/T SURGERY dorzolamide-timolol 22.3-6.8 mg/mL drops 1 drp OPB BID brimonidine 0.15 % drops 1 drp OPB BID esomeprazole magnesium [Nexium] 20 mg Capsule,Delayed Release(Dr/Ec) 20 mg PO QAM calcium citrate-vitamin D3 [Citracal + D Maximum] 315 mg-6.25 mcg (250 unit) Tablet 1 tab PO QAM Slow-Mag 71.5 mg Tablet,Delayed Release (Dr/Ec) 71.5 mg PO QPM krill oil 500 mg Capsule 500 mg PO BID betamethasone dipropionate 0.05 % lotion 1 applic TOPICAL BID PRN (Reason: Rash) lidocaine 5 % adhesive patch,medicated 1 patch TOP DAILY PRN (Reason: pain) Qty: 15 0RF Rx Instructions: leave on most painful area for 12 hrs Changed acetaminophen [Tylenol 8 Hour] 650 mg Tablet Extended Release 650 mg PO Q6H Qty: 30 0RF Discontinued lisinopril 20 mg tablet 20 mg PO QPM meloxicam 15 mg tablet 15 mg PO QAM Rx Instructions: ON HOLDD/T SURGERY ibuprofen 200 mg Tablet 400 mg PO DIRECTED PRN (Reason: Pain) Discharge Orders: Discharge Order (Routine); Ordered 02/10/24 Ordered By: Vera Roque Admission Data Admit Date/Time: 02/06/24 21:43 Attending Provider: Vera Roque I. Admit Provider: Davi Holley Primary Care Provider: Brook Boucher Other Providers: Davi Holley; Ebony Cooper; Pedro Zamora; [facility] Other Interventions: Discharge Summary Assessment (RN) Last Done: 02/10/24 14:16
== END 2024-02-10 14:19 | disposition home health service (06) | DRG 392 ==
LOC: ED 15:25 → 2N 21:43